=== PATIENT | female | born 1950 | race Caucasian/White ===

== ENCOUNTER 2017-10-27 18:36 | Inpatient (IN) | payer MEDICARE, BC ==
[2017-10-27 19:14] LABS: VENOUS BASE EXCESS -0.8 (-2.0-2.0); VENOUS HCO3 22.8 MEQ/L (23.0-27.0); VENOUS O2 SATURATION 78.9 % (60.0-80.0); VENOUS PARTIAL PRESSURE CO2 34.8 mmHg (38.0-50.0); VENOUS PARTIAL PRESSURE O2 40.9 mmHg (30.0-50.0); VENOUS PH 7.435 UNITS (7.330-7.430); VENOUS STANDARD HCO3 23.4 MEQ/L; VENOUS TOTAL CO2 23.9 MEQ/L (24.0-28.0)
[2017-10-27 19:19] LABS: BASO # 0.1 10^3/uL (0.0-0.2); BASO % 0.6 % (0.0-1.0); EOS # 0.2 10^3/uL (0.0-0.50); HEMATOCRIT 37.8 % (36.0-47.0); HEMOGLOBIN 12.7 g/dl (12.0-15.5); IMMATURE GRANULOCYTE % 0.5 % (0-3.0); LYMPH # 1.4 10^3/uL (1.5-4.5); LYMPH % 8.5 % (24.0-44.0); MEAN CORPUSCULAR HEMOGLOBIN 30.7 pg (27.0-33.0); MEAN CORPUSCULAR HGB CONC 33.6 g/dl (32.0-36.5); MEAN CORPUSCULAR VOLUME 91.3 fl (80.0-96.0); MONO # 1.5 10^3/uL (0.0-0.8); MONO % 9.1 % (0.0-5.0); NEUTROPHILS # 12.9 10^3/uL (1.8-7.7); NEUTROPHILS % 80.3 % (36.0-66.0); PLATELET COUNT, AUTOMATED 233 10^3/uL (150-450); RED BLOOD COUNT 4.14 10^6/uL (4.00-5.40); RED CELL DISTRIBUTION WIDTH 13.2 % (11.5-14.5); WHITE BLOOD COUNT 16.1 10^3/uL (4.0-10.0)
[2017-10-27 19:41] LABS: ALBUMIN 3.1 GM/DL (3.2-5.2); ALBUMIN/GLOBULIN RATIO 1.03 (1.00-1.93); ALKALINE PHOSPHATASE 79 U/L (45-117); ANION GAP 9 MEQ/L (8-16); AST/SGOT 20 U/L (7-37); BILIRUBIN,TOTAL 0.5 MG/DL (0.2-1.0); BLOOD UREA NITROGEN 12 MG/DL (7-18); CALCIUM LEVEL 8.4 MG/DL (8.8-10.2); CARBON DIOXIDE LEVEL 24 MEQ/L (21-32); CHLORIDE LEVEL 104 MEQ/L (98-107); CPK CREATINE PHOSPHOKINASE 56 U/L (26-192); CREATININE FOR GFR 0.83 MG/DL (0.55-1.30); GLOMERULAR FILTRATION RATE > 60.0 (>45); GLUCOSE, FASTING 154 MG/DL (70-100); POTASSIUM SERUM 4.1 MEQ/L (3.5-5.1); SODIUM LEVEL 137 MEQ/L (136-145); TOTAL PROTEIN 6.1 GM/DL (6.4-8.2); TROPONIN I < 0.02 NG/ML (< 0.10)
[2017-10-27] MEDS: NS 1,000 ML IV (19:45)
[2017-10-27 19:54] LABS: ALT/SGPT 29 U/L (12-78); BILIRUBIN,DIRECT 0.2 MG/DL (0.0-0.2); CK-MB VALUE MASS < 1.0 NG/ML (<3.6); MB/CK RELATIVE INDEX 1.78 (< OR =4); NT-PRO BNP 501 PG/ML (<125); THYROID STIMULATING HORMONE 0.761 uIU/ML (0.358-3.740)
[2017-10-27] MEDS: IPRATROPIUM 0.5MG/ALBUTEROL 2.5MG INH SOL UD 3ML (DUONEB)(J7620) NEB (20:09)
[2017-10-27 21:03] LABS: KETONE, URINE AUTO RFX 1+ mg/dL (NEGATIVE); LEUKOCYTE ESTERASE UR AUTO RFX 3+ (NEGATIVE); MUCUS, URINE RFX SMALL (NEGATIVE); NITRITE, URINE AUTO RFX POSITIVE (NEGATIVE); RBC, URINE AUTO RFX 7 /HPF (0-3); SPECIFIC GRAVITY UR AUTO RFX 1.024 (1.002-1.035); SQUAM EPITHELIAL CELL UR AURFX 0 /HPF (0-6); WBC, URINE AUTO RFX TNTC /HPF (0-3)
[2017-10-27] MEDS: CIPROFLOXACIN 400 MG in APPROPRIATE DILUENT 1 EA IV (21:45)
[2017-10-27] MEDS: NS 500 ML IV ×2 (23:30)
[2017-10-27] MEDS ORDERED: GLUCAGON FOR INJ 1 MG VIAL (J1610) SC (23:45)
[2017-10-27] MEDS ORDERED: GLUCOSE 4 GM CHEW TABLET PO (23:45)
[2017-10-27] MEDS ORDERED: DEXTROSE 50% 50 ML SYRINGE IV (23:45)
[2017-10-28 00:03] LABS: ESTIMATED AVERAGE GLUCOSE 192 MG/DL (60-110); HEMOGLOBIN A1c 8.3 %
[2017-10-28] MEDS: HumaLOG INSULIN (NovoLOG) PER UNIT SC ×5 (00:36→20:58)
[2017-10-28 00:37] LABS: BEDSIDE GLUCOSE 224 MG/DL (80-115)
[2017-10-28] MEDS: ACETAMINOPHEN TAB 650MG DOSE (2X325MG) PO ×3 (00:46→20:58)
[2017-10-28] MEDS: PHENAZOPYRIDINE 100 MG TAB PO ×4 (00:46→20:58)
[2017-10-28] MEDS: IPRATROPIUM 0.5MG/ALBUTEROL 2.5MG INH SOL UD 3ML (DUONEB)(J7620) INH (02:01)
[2017-10-28] MEDS: NICOTINE 14 MG/24 HR TRANSDERMAL TD (02:13)
[2017-10-28] MEDS: NS 1,000 ML IV ×2 (02:13→16:56)
[2017-10-28] MEDS: LEVOTHYROXINE 100MCG TABLET (0.1MG) PO (05:39)
[2017-10-28] MEDS: LEVOTHYROXINE 75MCG TABLET (0.075MG) PO (05:39)
[2017-10-28 05:49] LABS: HEMATOCRIT 36.6 % (36.0-47.0); HEMOGLOBIN 12.1 g/dl (12.0-15.5); MEAN CORPUSCULAR HEMOGLOBIN 30.9 pg (27.0-33.0); MEAN CORPUSCULAR HGB CONC 33.1 g/dl (32.0-36.5); MEAN CORPUSCULAR VOLUME 93.6 fl (80.0-96.0); PLATELET COUNT, AUTOMATED 199 10^3/uL (150-450); RED BLOOD COUNT 3.91 10^6/uL (4.00-5.40); RED CELL DISTRIBUTION WIDTH 13.2 % (11.5-14.5); WHITE BLOOD COUNT 13.4 10^3/uL (4.0-10.0)
[2017-10-28 06:12] LABS: ANION GAP 8 MEQ/L (8-16); BLOOD UREA NITROGEN 10 MG/DL (7-18); CALCIUM LEVEL 8.1 MG/DL (8.8-10.2); CARBON DIOXIDE LEVEL 24 MEQ/L (21-32); CHLORIDE LEVEL 108 MEQ/L (98-107); CREATININE FOR GFR 0.72 MG/DL (0.55-1.30); GLOMERULAR FILTRATION RATE > 60.0 (>45); GLUCOSE, FASTING 175 MG/DL (70-100); POTASSIUM SERUM 3.7 MEQ/L (3.5-5.1); SODIUM LEVEL 140 MEQ/L (136-145)
[2017-10-28] MEDS: TIOTROPIUM INHALER/CAPSULE (SPIRIVA) INH (07:48)
[2017-10-28] MEDS: ATORVASTATIN 20 MG TAB PO (08:26)
[2017-10-28] MEDS: ENOXAPARIN 40 MG/0.4 ML SYRINGE (J1650) SC (08:26)
[2017-10-28] MEDS: OMEPRAZOLE 20 MG CAP PO (08:26)
[2017-10-28] MEDS: CitaloPRAM (CeleXA) 20 MG TAB PO (08:26)
[2017-10-28] MEDS: CIPROFLOXACIN 400 MG in APPROPRIATE DILUENT 1 EA IV ×2 (08:26→21:03)
[2017-10-28] MEDS: MONTELUKAST 10 MG TAB PO (08:27)
[2017-10-28] MEDS: LEVEMIR (INSULIN DETEMIR) 1 UNITS/0.01ML SC (08:27)
[2017-10-28 11:24] LABS: BEDSIDE GLUCOSE 167 MG/DL (80-115)
[2017-10-28] MEDS: PERCOCET 5MG/325MG TAB PO (13:12)
[2017-10-28 16:32] LABS: BEDSIDE GLUCOSE 128 MG/DL (80-115)
[2017-10-28 19:45] LABS: BEDSIDE GLUCOSE 174 MG/DL (80-115)
[2017-10-29] MEDS: ONDANSETRON 4MG/2ML VIAL (J2405) IV (06:00)
[2017-10-29] MEDS: LEVOTHYROXINE 100MCG TABLET (0.1MG) PO (06:27)
[2017-10-29] MEDS: ACETAMINOPHEN TAB 650MG DOSE (2X325MG) PO ×2 (06:27→20:51)
[2017-10-29] MEDS: LEVOTHYROXINE 75MCG TABLET (0.075MG) PO (06:27)
[2017-10-29 06:54] LABS: HEMATOCRIT 37.8 % (36.0-47.0); HEMOGLOBIN 12.7 g/dl (12.0-15.5); MEAN CORPUSCULAR HEMOGLOBIN 30.8 pg (27.0-33.0); MEAN CORPUSCULAR HGB CONC 33.6 g/dl (32.0-36.5); MEAN CORPUSCULAR VOLUME 91.7 fl (80.0-96.0); PLATELET COUNT, AUTOMATED 185 10^3/uL (150-450); RED BLOOD COUNT 4.12 10^6/uL (4.00-5.40); RED CELL DISTRIBUTION WIDTH 12.8 % (11.5-14.5); WHITE BLOOD COUNT 9.3 10^3/uL (4.0-10.0)
[2017-10-29 07:11] LABS: ANION GAP 9 MEQ/L (8-16); BLOOD UREA NITROGEN 8 MG/DL (7-18); CALCIUM LEVEL 8.3 MG/DL (8.8-10.2); CARBON DIOXIDE LEVEL 23 MEQ/L (21-32); CHLORIDE LEVEL 107 MEQ/L (98-107); CREATININE FOR GFR 0.69 MG/DL (0.55-1.30); GLOMERULAR FILTRATION RATE > 60.0 (>45); GLUCOSE, FASTING 140 MG/DL (70-100); POTASSIUM SERUM 3.8 MEQ/L (3.5-5.1); SODIUM LEVEL 139 MEQ/L (136-145)
[2017-10-29 08:06] LABS: ALPHA 1 ANTITRYPSIN 128 mg/dL (90-200)
[2017-10-29] MEDS: TIOTROPIUM INHALER/CAPSULE (SPIRIVA) INH (08:17)
[2017-10-29] MEDS: IPRATROPIUM 0.5MG/ALBUTEROL 2.5MG INH SOL UD 3ML (DUONEB)(J7620) INH (08:17)
[2017-10-29] MEDS: ENOXAPARIN 40 MG/0.4 ML SYRINGE (J1650) SC (08:20)
[2017-10-29] MEDS: LEVEMIR (INSULIN DETEMIR) 1 UNITS/0.01ML SC (08:21)
[2017-10-29] MEDS: HumaLOG INSULIN (NovoLOG) PER UNIT SC ×4 (08:22→20:26)
[2017-10-29] MEDS: PHENAZOPYRIDINE 100 MG TAB PO ×2 (08:22→17:47)
[2017-10-29] MEDS: CitaloPRAM (CeleXA) 20 MG TAB PO (08:22)
[2017-10-29] MEDS: MONTELUKAST 10 MG TAB PO (08:23)
[2017-10-29] MEDS: ATORVASTATIN 20 MG TAB PO (08:23)
[2017-10-29] MEDS: OMEPRAZOLE 20 MG CAP PO (08:23)
[2017-10-29] MEDS: CIPROFLOXACIN 400 MG in APPROPRIATE DILUENT 1 EA IV (11:00)
[2017-10-29 11:58] LABS: BEDSIDE GLUCOSE 250 MG/DL (80-115)
[2017-10-29 16:52] LABS: BEDSIDE GLUCOSE 169 MG/DL (80-115)
[2017-10-29] MEDS: ERTAPENEM SODIUM 1 GM in NS MINI-BAG PLUS 50 ML IV (20:14)
[2017-10-29 20:28] LABS: BEDSIDE GLUCOSE 218 MG/DL (80-115)
[2017-10-30] MEDS: LEVOTHYROXINE 75MCG TABLET (0.075MG) PO (06:36)
[2017-10-30] MEDS: LEVOTHYROXINE 100MCG TABLET (0.1MG) PO (06:36)
[2017-10-30 07:50] LABS: HEMATOCRIT 35.8 % (36.0-47.0); HEMOGLOBIN 12.1 g/dl (12.0-15.5); MEAN CORPUSCULAR HEMOGLOBIN 30.6 pg (27.0-33.0); MEAN CORPUSCULAR HGB CONC 33.8 g/dl (32.0-36.5); MEAN CORPUSCULAR VOLUME 90.4 fl (80.0-96.0); PLATELET COUNT, AUTOMATED 192 10^3/uL (150-450); RED BLOOD COUNT 3.96 10^6/uL (4.00-5.40); RED CELL DISTRIBUTION WIDTH 12.5 % (11.5-14.5); WHITE BLOOD COUNT 7.8 10^3/uL (4.0-10.0)
[2017-10-30 08:08] LABS: ANION GAP 8 MEQ/L (8-16); BLOOD UREA NITROGEN 9 MG/DL (7-18); CALCIUM LEVEL 8.4 MG/DL (8.8-10.2); CARBON DIOXIDE LEVEL 25 MEQ/L (21-32); CHLORIDE LEVEL 107 MEQ/L (98-107); CREATININE FOR GFR 0.62 MG/DL (0.55-1.30); GLOMERULAR FILTRATION RATE > 60.0 (>45); GLUCOSE, FASTING 184 MG/DL (70-100); SODIUM LEVEL 140 MEQ/L (136-145)
[2017-10-30] MEDS: TIOTROPIUM INHALER/CAPSULE (SPIRIVA) INH (08:08)
[2017-10-30] MEDS: MONTELUKAST 10 MG TAB PO (08:24)
[2017-10-30] MEDS: ATORVASTATIN 20 MG TAB PO (08:24)
[2017-10-30] MEDS: LEVEMIR (INSULIN DETEMIR) 1 UNITS/0.01ML SC (08:24)
[2017-10-30] MEDS: OMEPRAZOLE 20 MG CAP PO (08:24)
[2017-10-30] MEDS: ENOXAPARIN 40 MG/0.4 ML SYRINGE (J1650) SC (08:25)
[2017-10-30] MEDS: HumaLOG INSULIN (NovoLOG) PER UNIT SC ×4 (08:25→20:38)
[2017-10-30] MEDS: CitaloPRAM (CeleXA) 20 MG TAB PO (10:37)
[2017-10-30] MEDS: NICOTINE 14 MG/24 HR TRANSDERMAL TD (11:36)
[2017-10-30 11:45] LABS: BEDSIDE GLUCOSE 324 MG/DL (80-115)
[2017-10-30 16:53] LABS: BEDSIDE GLUCOSE 245 MG/DL (80-115)
[2017-10-30 20:07] LABS: BEDSIDE GLUCOSE 312 MG/DL (80-115)
[2017-10-30] MEDS: ERTAPENEM SODIUM 1 GM in NS MINI-BAG PLUS 50 ML IV (20:39)
[2017-10-31] MEDS: LEVOTHYROXINE 75MCG TABLET (0.075MG) PO (06:43)
[2017-10-31] MEDS: LEVOTHYROXINE 100MCG TABLET (0.1MG) PO (06:43)
[2017-10-31 06:57] LABS: HEMATOCRIT 36.6 % (36.0-47.0); HEMOGLOBIN 12.7 g/dl (12.0-15.5); MEAN CORPUSCULAR HEMOGLOBIN 30.8 pg (27.0-33.0); MEAN CORPUSCULAR HGB CONC 34.7 g/dl (32.0-36.5); MEAN CORPUSCULAR VOLUME 88.8 fl (80.0-96.0); PLATELET COUNT, AUTOMATED 227 10^3/uL (150-450); RED BLOOD COUNT 4.12 10^6/uL (4.00-5.40); RED CELL DISTRIBUTION WIDTH 12.4 % (11.5-14.5); WHITE BLOOD COUNT 7.4 10^3/uL (4.0-10.0)
[2017-10-31 07:18] LABS: ANION GAP 10 MEQ/L (8-16); BLOOD UREA NITROGEN 13 MG/DL (7-18); CALCIUM LEVEL 8.6 MG/DL (8.8-10.2); CARBON DIOXIDE LEVEL 26 MEQ/L (21-32); CHLORIDE LEVEL 106 MEQ/L (98-107); CREATININE FOR GFR 0.58 MG/DL (0.55-1.30); GLOMERULAR FILTRATION RATE > 60.0 (>45); GLUCOSE, FASTING 191 MG/DL (70-100); POTASSIUM SERUM 4.2 MEQ/L (3.5-5.1); SODIUM LEVEL 142 MEQ/L (136-145)
[2017-10-31] MEDS: ENOXAPARIN 40 MG/0.4 ML SYRINGE (J1650) SC (08:12)
[2017-10-31] MEDS: HumaLOG INSULIN (NovoLOG) PER UNIT SC (08:13)
[2017-10-31] MEDS: NICOTINE 14 MG/24 HR TRANSDERMAL TD (08:13)
[2017-10-31] MEDS: ATORVASTATIN 20 MG TAB PO (08:13)
[2017-10-31] MEDS: LEVEMIR (INSULIN DETEMIR) 1 UNITS/0.01ML SC (08:13)
[2017-10-31] MEDS: OMEPRAZOLE 20 MG CAP PO (08:14)
[2017-10-31] MEDS: CitaloPRAM (CeleXA) 20 MG TAB PO (08:14)
[2017-10-31] MEDS: MONTELUKAST 10 MG TAB PO (08:14)
[2017-10-31] MEDS: TIOTROPIUM INHALER/CAPSULE (SPIRIVA) INH (08:45)
== END 2017-10-31 12:10 | disposition home or self-care (01) | DRG 872 ==
LOC: M ED INP 10-28 00:30 → M MS5PR 10-28 01:30 → M PED 10-29 21:10 → M ED 18:36
PROVIDERS: Hospitalist
DX: A41.9 Sepsis, unspecified organism (principal); N10 Acute pyelonephritis; E11.9 Type 2 diabetes mellitus without complications; J44.9 Chronic obstructive pulmonary disease, unspecified; R65.20 Severe sepsis without septic shock; G47.33 Obstructive sleep apnea (adult) (pediatric); I10 Essential (primary) hypertension; E03.9 Hypothyroidism, unspecified; F32.9 Major depressive disorder, single episode, unspecified; B96.20 Unspecified Escherichia coli [E. coli] as the cause of diseases classified elsewhere; K21.9 Gastro-esophageal reflux disease without esophagitis; E88.01 Alpha-1-antitrypsin deficiency; F17.210 Nicotine dependence, cigarettes, uncomplicated; E78.5 Hyperlipidemia, unspecified; I25.10 Atherosclerotic heart disease of native coronary artery without angina pectoris; G43.909 Migraine, unspecified, not intractable, without status migrainosus; Z79.4 Long term (current) use of insulin; Z79.899 Other long term (current) drug therapy

== ENCOUNTER → 2017-10-27 | Outpatient (REF) | payer MEDICARE | LOC: M SFHCLERA 18:48 | DX: R50.9 Fever, unspecified (principal) ==

== ENCOUNTER → 2018-01-25 | Outpatient (CLI) | payer MEDICARE | LOC: M RAD 10:21 | DX: J18.9 Pneumonia, unspecified organism (principal) | CPT/HCPCS: 71046 ==

== ENCOUNTER 2018-05-17 10:04 | Inpatient (IN) | payer MEDICARE ==
[~2018-05-17] VITALS: Ht 177.8 cm; Wt 98.6 kg
[2018-05-17] MEDS: LEVOTHYROXINE 100MCG TABLET (0.1MG) PO SCH (06:00)
[2018-05-17] MEDS: LEVOTHYROXINE 75MCG TABLET (0.075MG) PO SCH (06:00)
[2018-05-17] MEDS: TIOTROPIUM INHALER/CAPSULE (SPIRIVA) INH SCH (08:00)
[2018-05-17] MEDS: LISINOPRIL 20 MG TAB PO SCH (09:00)
[2018-05-17] MEDS: OMEPRAZOLE 20 MG CAP PO SCH (09:00)
[2018-05-17] MEDS: ATORVASTATIN 20 MG TAB PO SCH (09:00)
[2018-05-17] MEDS: LORATADINE 10 MG TAB PO SCH (09:00)
[2018-05-17] MEDS: ADVAIR HFA 115/21MCG INHALER INH SCH ×2 (09:00→21:00)
[~2018-05-17 10:04] MED LIST: /ADVA50050; /AUGM875TA; /TIOT18INH; ADV250INH INH; ATOR40TA75 PO; BABY81CH; BACITAB PO; CELE40TA; CELE40TA PO; CETI10TA PO; CIPR1TAB20 PO; COMBAER6 INH; COMBIVENT; HUMALOG; HUMUINJ; INSUHUMDS SC; LEVO2TA; LISI10TA4 PO; METO1TAB7 PO; MONT10TA2 PO; OMEP20CA3 PO; PATIENT COMMENT; PRIL20CA; PRIN10TA; RIZATRIPTAN; SING10TA31; SPIR1CAP INH; SYNT175T2 PO; TOPR50TA; TOUJ1.2I SC; VENTAER INH; VICO5TAB; VYTO10TA5; ZYRTEC D
[2018-05-17] MEDS ORDERED: ONDANSETRON 4MG/2ML VIAL (J2405) IV ONE (10:30)
[2018-05-17] MEDS: MORPHINE 2 MG/ML 1ML SYRINGE (J2270) IV PRN ×4 (10:37→13:10)
[2018-05-17 10:38] LABS: BASO # 0.1 10^3/uL (0.0-0.2); BASO % 1.2 % (0.0-1.0); EOS # 0.4 10^3/uL (0.0-0.50); HEMATOCRIT 40.3 % (36.0-47.0); HEMOGLOBIN 13.6 g/dl (12.0-15.5); LYMPH # 2.2 10^3/uL (1.5-4.5); LYMPH % 24.7 % (24.0-44.0); MEAN CORPUSCULAR HEMOGLOBIN 31.1 pg (27.0-33.0); MEAN CORPUSCULAR HGB CONC 33.7 g/dl (32.0-36.5); MEAN CORPUSCULAR VOLUME 92.2 fl (80.0-96.0); MONO # 0.6 10^3/uL (0.0-0.8); MONO % 6.9 % (0.0-5.0); NEUTROPHILS # 5.4 10^3/uL (1.8-7.7); NEUTROPHILS % 61.9 % (36.0-66.0); PLATELET COUNT, AUTOMATED 237 10^3/uL (150-450); RED BLOOD COUNT 4.37 10^6/uL (4.00-5.40); WHITE BLOOD COUNT 8.8 10^3/uL (4.0-10.0)
[2018-05-17] MEDS ORDERED: OMEP40CA2 PO (10:50)
[2018-05-17] MEDS ORDERED: JARD1TAB PO (10:50)
[2018-05-17 10:51] LABS: INR 0.97; PARTIAL THROMBOPLASTIN TIME 28.8 SECONDS (25.4-37.6)
[2018-05-17] MEDS ORDERED: NS 1,000 ML IV ONE ×2 (11:30)
--- NOTE | 2018-05-17 11:42 | REP ---
CHEST, SINGLE VIEW: There is no evidence of acute infiltrate. No pleural effusion is seen. The heart is normal in size. The mediastinal silhouette is unremarkable. The visualized osseous structures are intact. IMPRESSION: No acute pulmonary disease. Electronically Signed by uJlio Howard MD 05/17/2018 05:39 P
--- NOTE | 2018-05-17 11:43 | REP ---
LEFT FEMUR: AP and lateral views of the left femur are performed. There is an intertrochanteric fracture of the proximal femur. No other acute fracture or dislocation is seen. IMPRESSION: Intertrochanteric fracture proximal left femur. Electronically Signed by Julio Howard MD 05/17/2018 05:39 P
--- NOTE | 2018-05-17 11:43 | REP ---
PELVIS AND LEFT HIP: AP view of the pelvis and AP and frogleg views of the left hip are performed. There is an intertrochanteric fracture of the proximal left femur. No other acute fracture or dislocation seen. IMPRESSION: Intertrochanteric fracture proximal left femur. Electronically Signed by Julio Howard MD 05/17/2018 05:40 P
--- NOTE | 2018-05-17 11:45 | REP ---
LUMBOSACRAL SPINE: Four views of the lumbosacral spine are performed. There is no compression fracture or malalignment. Disc spaces are relatively well preserved. There is sclerosis of the facets at L4-5 and L5-S1. Posterior elements appear intact. IMPRESSION: No fracture or dislocation. Electronically Signed by Julio Howard MD 05/17/2018 05:40 P
[2018-05-17] MEDS ORDERED: METO25TA4 PO (11:46)
[2018-05-17] MEDS ORDERED: CLAR10CA3 PO (11:46)
[2018-05-17] MEDS ORDERED: LISI-538 PO (11:46)
[2018-05-17] MEDS ORDERED: PRED10TA2 PO (11:48)
[2018-05-17] MEDS ORDERED: AZIT-12 PO (11:48)
[2018-05-17] MEDS ORDERED: NS 1,000 ML IV SCH (13:06)
[2018-05-17] MEDS ORDERED: IPRATROPIUM 0.5MG/ALBUTEROL 2.5MG INH SOL UD 3ML (DUONEB)(J7620) INH PRN (13:15)
[2018-05-17] MEDS ORDERED: ALBUTEROL 90 MCG/ACT 8GM HFA INHALER INH PRN (13:15)
--- NOTE | 2018-05-17 13:53 | HPE ---
DATE OF ADMISSION: 05/17/2018 68-year-old female with a past medical history of type 2 diabetes, non oxygen dependent chronic obstructive pulmonary disease (COPD), obstructive sleep apnea on CPAP, hypertension, hyperlipidemia, who presents to the emergency room after falling on ice today and landing on her left hip. She was brought to the emergency room and was given IV morphine for pain and an x-ray revealed that the patient had a left intertrochanteric fracture. The patient has been seen by Dr. Green, orthopedic surgeon, and likely will have surgery later on today. The patient denies any chest pain or shortness of breath or palpitations. She denied any chest pain, shortness of breath, or palpitations prior to the fall as well. She did not have a syncopal event. She will be admitted for further management. PAST MEDICAL HISTORY: Again, past medical history of: 1. Type 2 diabetes. 2. Non oxygen dependent COPD. 3. Obstructive sleep apnea, on CPAP. 4. Gastroesophageal reflux disease (GERD). 5. Hypothyroidism. 6. Hypertension. 7. Hyperlipidemia. 8. Coronary artery disease. 9. Depression. 10. History of peripheral vascular disease. 11. Migraines. PAST SURGICAL HISTORY: 1. Hysterectomy. 2. Appendectomy. 3. Bladder suspension. ALLERGIES: She has drug allergies to SULFA and SULFA CROSS REACTORS. FAMILY HISTORY: Noncontributory. SOCIAL HISTORY: The patient smokes about a half of a pack per day for the last 30 years. Denies alcohol or illicit drugs. MEDICATIONS: She takes at home: - albuterol as needed - atorvastatin 40 mg by mouth daily - empagliflozin 10 mg by mouth daily - Lispro insulin one dose subcutaneously before meals - Synthroid 175 mcg by mouth daily - Lisinopril 20 mg by mouth daily - loratadine 10 mg by mouth daily - metoprolol 25 mg by mouth twice a day - omeprazole 40 mg by mouth daily - salmeterol / fluticasone 250/50 one puff inhaled twice a day - tiotropium one inhalation daily - Toujeo SoloStar 60 units subcutaneously at night REVIEW OF SYSTEMS: Negative for all ten major systems except what is mentioned in the history of present illness. PHYSICAL EXAMINATION: VITAL SIGNS: Blood pressure 130/64, heart rate is 80 and regular, respiratory rate is 18, temperature 98.8, oxygen saturation is 97% on room air. Head is atraumatic, normocephalic. Neck is supple with no jugular venous distention (JVD). Lungs clear to auscultation. S1, S2 audible. No murmurs appreciated. Abdomen is soft. Positive bowel sounds. No pedal edema. Skin is intact. Neurologic examination, the patient is awake, alert and oriented times three. LABORATORIES: WBC 8.8, hemoglobin 13.6, hematocrit 40.3, platelets 237,000. BMP is pending. INR is 0.97. 12-leak EKG shows normal sinus rhythm. No acute ST-T wave abnormalities. IMPRESSION: 1. Left intertrochanteric fracture. 2. Fall. PLAN: The patient will be admitted to the medical/surgical floor and kept nothing by mouth. We will start normal saline at 125 mL an hour. I will give her morphine IV every 2 hours as needed for pain. I will continue her preadmission medications. If the BMP is within normal limits, I will medically optimize her at moderate risk for moderate risk procedure.
[2018-05-17] MEDS ORDERED: ceFAZolin 1GM INJ (J0690 PER 500MG) As Ordered ONE (14:15)
[2018-05-17 14:29] LABS: ALBUMIN 3.3 GM/DL (3.2-5.2); ALT/SGPT 27 U/L (12-78); BILIRUBIN,DIRECT < 0.1 MG/DL (0.0-0.2); BILIRUBIN,TOTAL 0.2 MG/DL (0.2-1.0); CPK CREATINE PHOSPHOKINASE 94 U/L (26-192); MB/CK RELATIVE INDEX 1.81 (< OR =4); TROPONIN I < 0.02 NG/ML (< 0.10)
[2018-05-17] MEDS ORDERED: ceFAZolin 2 GM/D5W 50 ML IV BAG (J0690 PER 500MG) As Ordered ONE (14:30)
[2018-05-17] MEDS ORDERED: PROPOFOL 200 MG/20 ML VIAL As Ordered ONE (15:37)
[2018-05-17] MEDS ORDERED: KETAMINE HCL 200 MG/20 ML VIAL As Ordered ONE (15:37)
[2018-05-17] MEDS ORDERED: PHENYLephrine HCL 500 MCG/5 ML (100MCG/ML) SYRINGE (J2370) As Ordered ONE (15:37)
[2018-05-17] MEDS ORDERED: MIDAZOLAM INJ 2 MG/2 ML VIAL (J2250) As Ordered ONE (15:37)
[2018-05-17] MEDS ORDERED: LR 1,000 ML IV SCH (16:30)
[2018-05-17] MEDS ORDERED: MORPHINE 10 MG/ML 1ML VIAL (J2270) IV PRN (16:30)
[2018-05-17] MEDS ORDERED: fentaNYL 100 MCG/2 ML INJECTION (J3010) IV PRN (16:30)
[2018-05-17] MEDS ORDERED: ONDANSETRON 4MG/2ML VIAL (J2405) IV PRN (16:30)
[2018-05-17] MEDS ORDERED: PERCOCET 5MG/325MG TAB PO PRN (16:30)
--- NOTE | 2018-05-17 16:50 | REP ---
Left hip: 10 views: History: Left hip fracture intraoperative filming. 56 seconds of fluoroscopy time is reported. Findings: A sequence of 10 last image hold fluoroscopically obtained spot radiographs of the left hip document open reduction internal fixation procedure for left hip. Electronically Signed by Andrea Parham MD 05/17/2018 04:53 P
[2018-05-17 18:06] LABS: BLOOD UREA NITROGEN 15 MG/DL (7-18); CARBON DIOXIDE LEVEL 25 MEQ/L (21-32); CHLORIDE LEVEL 111 MEQ/L (98-107); CREATININE FOR GFR 0.68 MG/DL (0.55-1.30); GLOMERULAR FILTRATION RATE > 60.0 (>45); GLUCOSE, FASTING 207 MG/DL (70-100); POTASSIUM SERUM 4.5 MEQ/L (3.5-5.1); SODIUM LEVEL 143 MEQ/L (136-145)
[2018-05-17 18:45] VITALS: BP 119/62
--- NOTE | 2018-05-17 19:08 | CR ---
DATE OF CONSULTATION: 05/17/2018 REASON FOR CONSULTATION: Left intertrochanteric fracture. HISTORY OF THE PRESENT ILLNESS: She is a 68-year-old female, slipped on the ice taking the trash out this morning at her home in [place]. She lives alone, she is . Fell, had pain in the left hip area and her low back. She was transferred to [facility], found to have a left intertrochanteric hip fracture, and I was called to see her for this. She otherwise has no other complaints of pain and soreness. No loss of consciousness. Did not strike her head or neck. Does not complain of any tingling or numbness in her extremities otherwise. PAST MEDICAL HISTORY: Significant for: Insulin-dependent diabetes. Coronary artery disease. Hypertension. Hypothyroidism. Depression. Hyperlipidemia. Gastric reflux disease. Sleep apnea. Chronic obstructive pulmonary disease (COPD). History of kidney pyelonephritis. Migraine headaches. MEDICATIONS AT HOME: Include: - insulin - Synthroid - lisinopril - Celexa - cetirizine - atorvastatin - Combivent - Ventolin - metoprolol - montelukast - omeprazole - Advair Diskus - Spiriva - Toujeo PREVIOUS SURGICAL HISTORY: Hysterectomy. Appendectomy. Cardiac catheterizations twice. Bladder suspension surgery. Right foot surgery. Dental abscess drainage procedure. Esophagogastroduodenoscopies. SOCIAL HISTORY: She does smoke. She is a retired bakery sales clerk. She used to in [place], [place]. She is . . She lives alone but has supportive neighbors, one of whom is a nurse. FAMILY HISTORY: Otherwise, coronary artery disease on her mother's side with diabetes in a sister, daughter of congestive heart failure. ALLERGIES: SULFA. REVIEW OF SYSTEMS: Health survey amended to the chart. Please see the note from Dr. Pablo's admission note from October the past year. I also discussed her situation with her hospitalist here today. She normally gets her care with Dr. Dyer with [facility]. PHYSICAL EXAMINATION: On examination, alert and oriented, pleasant, healthy-appearing female. She is at the bedside with her friends, one of whom is a nurse. Also, the hospitalist was with us. She is alert, she is oriented, complains of only isolated soreness in the left hip area. Her blood pressure is 150/84, respirations 23, pulse 81, temperature is 98.8, oxygen saturations are 97%. Upper extremity: She could elevate her arms up over her head without pain or soreness, tenderness, deformity, pain or swelling, or tenderness of her shoulders, humeri, elbows, wrists. Neck is nontender. Head is normocephalic, atraumatic. Chest wall is nontender. Abdomen was soft. The left lower extremity showed some tenderness over the greater trochanter area in the left hip area. She tends to hold her leg somewhat externally rotated but good strong dorsalis pedis and posterior tibial pulses. Could move her toes well. Normal sensation to light touch. The right lower extremity was benign in terms of any pain or soreness. There is some soreness in the base of her lumbar spine. IMAGING STUDIES: Her chest x-ray showed no acute disease. Left hip and femur showed a high intertrochanteric fracture of the left hip. Lumbar spine x-ray did not show any acute fractures. LABORATORY STUDIES: She had a white count of 8.8, hematocrit of 40.3, platelets of 237. Electrolytes are presently pending. Pro-time was 13, INR 0.97. IMPRESSION: Left intertrochanteric hip fracture in a 68-year-old female with the above medical history. I talked to her about the options for treatment, and I think that she would be best cared for with operative fixation and stabilization of her hip in hopes of getting it to heal properly so we can mobilize her early and hopefully get a good anatomic reduction and healing for long-term function. But that carries the risk of having surgical intervention, which I did discuss with her and her friends, and her friend who is a nurse as well. There is always a risk, of course, of infection or anesthetic complications, phlebitis and embolism, heart attack, dying from surgery or failure of the bone to heal properly, damage to nerves and blood vessels amongst others. She understands there is a risk, but she would like to proceed. She understands, so she signed the consent today. The hospitalist feels that she is medically optimized, just waiting for nothing by mouth (n.p.o.) status and the availability of the operating room. Hopefully we can proceed when the operating room is available for us and her final labs have been reviewed.
[2018-05-17 19:15] VITALS: BP 138/72
--- NOTE | 2018-05-17 19:49 | ECGEPIP ---
Stationary ECG Study [facility] - ED Test Date: 2018-05-17 Pat Name: KYLEE LESLIE Department: Room: - Gender: F Cafeteria Assistant: kevan : 1950 Requested By: Fletcher Hollingsworth Order Number: [id number] Reading MD: Fletcher Hollingsworth Measurements Intervals [place] Rate: 75 P: 69 WA: 168 QRS: 50 QRSD: 82 T: 61 QT: 405 QTc: 454 Interpretive Statements SINUS RHYTHM NONSPECIFIC ST T WAVE CHANGES 10/27/[address] T WAVE CHANGES Electronically Signed On 05-17-2018 19:48:49 EST by Fletcher Hollingsworth
--- NOTE | 2018-05-17 19:51 | ECGEPIP ---
Stationary ECG Study [facility] - ED Test Date: 2018-05-17 Pat Name: KYLEE LESLIE Department: Room: - Gender: F Administration Clerk: kevan : 1950 Requested By: Fletcher Hollingsworth Order Number: [id number] Reading MD: Fletcher Hollingsworth Measurements Intervals [place] Rate: 73 P: 67 OR: 172 QRS: 50 QRSD: 81 T: 66 QT: 388 QTc: 428 Interpretive Statements SINUS RHYTHM NONSPECIFIC T-WAVE ABNORMALITY CW O NONSPECIFIC ST T WAVE CHANGES Electronically Signed On 05-17-2018 19:50:59 EST by Fletcher Hollingsworth
[2018-05-17 20:15] VITALS: BP 107/56
[2018-05-17] MEDS: METOPROLOL TART 25 MG TABLET PO SCH ×2 (20:58→21:00)
[2018-05-17 21:15] VITALS: BP 115/56
[2018-05-17] MEDS: MORPHINE 4 MG/ML 1ML VIAL/SYRINGE (J2270) IV PRN (21:33)
[2018-05-17 22:00] VITALS: BP 102/50
[2018-05-18] MEDS: MORPHINE 4 MG/ML 1ML VIAL/SYRINGE (J2270) IV PRN ×2 (00:44→06:16)
[2018-05-18 02:00] VITALS: BP 120/62
[2018-05-18] MEDS: LEVOTHYROXINE 100MCG TABLET (0.1MG) PO SCH (05:48)
[2018-05-18] MEDS: LEVOTHYROXINE 75MCG TABLET (0.075MG) PO SCH (05:48)
[2018-05-18 06:00] VITALS: BP 116/75
[2018-05-18] MEDS ORDERED: PERCOCET 5MG/325MG TAB PO PRN (06:45)
[2018-05-18] MEDS ORDERED: MORPHINE 15 MG SA TAB PO ONE (06:45)
[2018-05-18] MEDS ORDERED: ONDANSETRON 4 MG TAB (S0181) PO PRN (06:45)
[2018-05-18 07:01] LABS: BASO # 0.1 10^3/uL (0.0-0.2); EOS # 0.2 10^3/uL (0.0-0.50); EOS % 2.4 % (0.0-3.0); LYMPH # 1.8 10^3/uL (1.5-4.5); LYMPH % 18.4 % (24.0-44.0); MEAN CORPUSCULAR HEMOGLOBIN 31.3 pg (27.0-33.0); MEAN CORPUSCULAR HGB CONC 33.1 g/dl (32.0-36.5); MEAN CORPUSCULAR VOLUME 94.3 fl (80.0-96.0); MONO # 1.1 10^3/uL (0.0-0.8); MONO % 11.4 % (0.0-5.0); NEUTROPHILS # 6.5 10^3/uL (1.8-7.7); NEUTROPHILS % 66.4 % (36.0-66.0); PLATELET COUNT, AUTOMATED 206 10^3/uL (150-450); RED BLOOD COUNT 3.71 10^6/uL (4.00-5.40); WHITE BLOOD COUNT 9.8 10^3/uL (4.0-10.0)
[2018-05-18 07:07] LABS: HEMOGLOBIN 11.6 g/dl (12.0-15.5)
[2018-05-18] MEDS: TIOTROPIUM INHALER/CAPSULE (SPIRIVA) INH SCH (07:52)
[2018-05-18] MEDS: ADVAIR HFA 115/21MCG INHALER INH SCH ×2 (07:52→21:00)
[2018-05-18] MEDS: PERCOCET 5MG/325MG TAB PO PRN ×3 (08:43→18:35)
[2018-05-18 09:00] VITALS: BP 120/78
[2018-05-18] MEDS ORDERED: LEVEMIR (INSULIN DETEMIR) 1 UNITS/0.01ML SC SCH ×2 (09:00→21:00)
[2018-05-18 09:22] LABS: BLOOD UREA NITROGEN 13 MG/DL (7-18); CALCIUM LEVEL 7.9 MG/DL (8.8-10.2); CARBON DIOXIDE LEVEL 24 MEQ/L (21-32); CHLORIDE LEVEL 109 MEQ/L (98-107); GLOMERULAR FILTRATION RATE > 60.0 (>45); GLUCOSE, FASTING 146 MG/DL (70-100); POTASSIUM SERUM 4.1 MEQ/L (3.5-5.1); SODIUM LEVEL 140 MEQ/L (136-145)
[2018-05-18 10:00] VITALS: BP 118/76
[2018-05-18] MEDS: ATORVASTATIN 20 MG TAB PO SCH (10:43)
[2018-05-18] MEDS: OMEPRAZOLE 20 MG CAP PO SCH (10:43)
[2018-05-18] MEDS: LISINOPRIL 20 MG TAB PO SCH (10:43)
[2018-05-18] MEDS: MOM 30ML SUSPENSION UDC PO SCH ×2 (10:44→11:04)
[2018-05-18] MEDS: SENOKOT S TAB PO SCH ×2 (10:44→11:04)
[2018-05-18] MEDS: RIVAROXABAN 10 MG TAB (XARELTO) PO SCH (10:44)
[2018-05-18] MEDS: LORATADINE 10 MG TAB PO SCH (10:44)
[2018-05-18] MEDS: METOPROLOL TART 25 MG TABLET PO SCH ×2 (10:44→21:16)
[2018-05-18] MEDS: MIRALAX *UNIT DOSE* 17GM PACKET PO SCH (10:44)
[2018-05-18] MEDS: LEVEMIR (INSULIN DETEMIR) 1 UNITS/0.01ML SC SCH (10:46)
--- NOTE | 2018-05-18 13:52 | RO ---
DATE OF PROCEDURE: 05/17/2018 PREOPERATIVE DIAGNOSIS: Left intertrochanteric hip fracture. POSTOPERATIVE DIAGNOSIS: Left intertrochanteric hip fracture. PROCEDURE: Intramedullary (IM) nailing with trochanteric femoral nail left intertrochanteric femur fracture. SURGEON: Dr. Jose Green HULL OUTFIT SUPERVISOR: None. ANESTHESIA: Spinal. COMPLICATIONS: None. ESTIMATED BLOOD LOSS: 30 mL. SPECIMENS: None. DESCRIPTION OF PROCEDURE: Antibiotics were given intravenously, preoperatively and a successful spinal anesthetic was induced. Then, she was placed on the fracture table in a right position appropriate closed reduction was performed under fluoroscopic guidance. Once that was done and appropriate time-out had been done her left hip area was carefully prepped and draped in the usual sterile fashion, and then under fluoroscopic guidance about a 2 inch incision was made proximal to the greater trochanter laterally over the left hip. Bovie cautery was used to coagulate crossing vessels down to the deep tissues. The tensor fascia was divided and the trochanteric prominence palpated, and then the Sharp all placed in the appropriate position on the tip of the greater trochanter under fluoroscopic guidance and then advanced, followed by the ball-tip guide quang down the center of the femoral canal. Position was checked in both the AP and the lateral planes. It was in good position. The proximal reamer was then placed under fluoroscopic guidance, and then we inserted the short nail. It was positioned fluoroscopically estimated to be in the right depth, and then a small incision was made distally over the lateral femur and the drill guide placed up against the lateral femoral cortex. Then, the guidepin placed in the center of femoral head under AP and the lateral planes, and then it was positioned appropriately to just below the subchondral surface of the center of the femoral head. It measured 110, so I reamed to 100 mm. A twisty blade helical blade was obtained and then inserted under fluoroscopic imaging checking the AP and lateral planes. The static interlock was then placed under fluoroscopic guidance by making a small skin incision and advancing the drill sleeve to the lateral femoral cortex and drilling, then a 36 mm screw was placed without difficulty. I did secure the helical blade by tightening the network desktop support specialist and then backing off 1/4 turn. Then, all the insertion instruments were removed and final imaging in the AP and lateral planes of the fracture site and the hardware was performed. Everything looked to be in good position. Then, I copiously irrigated out the wound. Closed the tensor fascia with interrupted #1 PDS suture. Closed the deep subdermal tissues with interrupted #2-0 PDS sutures. Skin was closed with stapled covered by Adaptic, dry sterile bulky dressing. Then, she was transferred off to the recovery room and then transferred to the recovery room in stable condition. There were no intraoperative complications.
[2018-05-18 14:00] VITALS: BP 93/56
--- NOTE | 2018-05-18 14:31 | IPNPDOC ---
Text Note Date of Service The patient was seen on 05/18/18. NOTE Subjective: Patient's states she still has left hip pain. She notes that her f all was mechanical in nature on ice. Denies any syncopal episode. No chest pain or palpitations. Objective: Vitals: (see below) General: No acute distress, laying comfortably in bed. HEENT: Moist mucous membranes. Neck: No JVD or lymphadenopathy Cardiac: RRR, No murmurs Pulm: Clear to auscultation b/l. No wheezing, rhonchi Abd: NT/ND + BS Ext: No cyanosis. Minimal swelling at the left hip region with bandage clean and dry. No active bleeding noted. Distal pulses intact. Capillary refill less than 2 seconds. Labs (see below) Assessment/Plan 1. Left intertrochanteric fracture s/p repair 05/17/18. Management per orthopedics. 2. IDDM - will decrease Levemir until patient's by mouth intake is improved. Sliding scale insulin. Consistent carb diet. 3. Hypothyroidism on Synthroid 4. Hypertension controlled continue home meds; decrease lisinopril to 10 mg 5. History of COPD stable 6. History of CAD continue meds. Stable. 7. History of anxiety continue meds. 8. History of GERD on PPI 9. History of hyperlipidemia on statin DVT prophy: On Xarelto per ortho Dispo: Pending PT/clinical improvement. VS,Fishbone, I+O VS, Fishbone, I+O Laboratory Tests 05/18/18 06:34 Red Blood Count 3.71 L, Mean Corpuscular Volume 94.3, Mean Corpuscular Hemoglob in 31.3, Mean Corpuscular Hemoglobin Concent 33.1, Red Cell Distribution Width 13.2, Neutrophils (%) (Auto) 66.4 H, Lymphocytes (%) (Auto) 18.4 L, Monocytes (%) (Auto) 11.4 H, Eosinophils (%) (Auto) 2.4, Basophils (%) (Auto) 1.0, Neutrophils # (Auto) 6.5, Lymphocytes # (Auto) 1.8, Monocytes # (Auto) 1.1 H, Eosinophils # (Auto) 0.2, Basophils # (Auto) 0.1, Calcium Level 7.9 L Vital Signs Date Time Temp Pulse Resp B/P (MAP) Pulse Ox O2 Delivery O2 Flow Rate FiO2 05/18/18 14:00 98.9 72 18 93/56 (68) 96 2.0 05/17/18 13:35 Room Air I&O- Last 24 Hours up to 6 AM 05/18/18 06:00 Intake Total 1884 ml Output Total 1680 ml Balance 204 ml TESS WINCHESTER MD May 18, 2018 14:31
[2018-05-18 22:00] VITALS: BP 109/59
[2018-05-19] MEDS: LEVOTHYROXINE 75MCG TABLET (0.075MG) PO SCH (05:49)
[2018-05-19] MEDS: LEVOTHYROXINE 100MCG TABLET (0.1MG) PO SCH (05:49)
[2018-05-19] MEDS: PERCOCET 5MG/325MG TAB PO PRN ×3 (05:49→22:07)
[2018-05-19 06:00] VITALS: BP 125/58
[2018-05-19] MEDS: TIOTROPIUM INHALER/CAPSULE (SPIRIVA) INH SCH (08:40)
[2018-05-19] MEDS: ADVAIR HFA 115/21MCG INHALER INH SCH ×2 (08:43→21:00)
[2018-05-19 09:00] VITALS: BP 124/68
[2018-05-19 09:30] LABS: HEMATOCRIT 33.7 % (36.0-47.0); HEMOGLOBIN 10.9 g/dl (12.0-15.5); MEAN CORPUSCULAR HEMOGLOBIN 30.4 pg (27.0-33.0); MEAN CORPUSCULAR HGB CONC 32.3 g/dl (32.0-36.5); MEAN CORPUSCULAR VOLUME 94.1 fl (80.0-96.0); PLATELET COUNT, AUTOMATED 219 10^3/uL (150-450); RED BLOOD COUNT 3.58 10^6/uL (4.00-5.40); WHITE BLOOD COUNT 15.8 10^3/uL (4.0-10.0)
[2018-05-19 09:52] LABS: BLOOD UREA NITROGEN 15 MG/DL (7-18); CALCIUM LEVEL 8.3 MG/DL (8.8-10.2); CARBON DIOXIDE LEVEL 23 MEQ/L (21-32); CHLORIDE LEVEL 102 MEQ/L (98-107); CREATININE FOR GFR 0.85 MG/DL (0.55-1.30); GLOMERULAR FILTRATION RATE > 60.0 (>45); GLUCOSE, FASTING 323 MG/DL (70-100); POTASSIUM SERUM 4.4 MEQ/L (3.5-5.1); SODIUM LEVEL 134 MEQ/L (136-145)
[2018-05-19] MEDS: ATORVASTATIN 20 MG TAB PO SCH (10:04)
[2018-05-19] MEDS: LISINOPRIL 10 MG TAB PO SCH (10:05)
[2018-05-19] MEDS: OMEPRAZOLE 20 MG CAP PO SCH (10:05)
[2018-05-19] MEDS: SENOKOT S TAB PO SCH ×2 (10:05→20:38)
[2018-05-19] MEDS: RIVAROXABAN 10 MG TAB (XARELTO) PO SCH (10:05)
[2018-05-19] MEDS: LORATADINE 10 MG TAB PO SCH (10:06)
[2018-05-19] MEDS: METOPROLOL TART 25 MG TABLET PO SCH ×2 (10:06→20:38)
[2018-05-19] MEDS: LEVEMIR (INSULIN DETEMIR) 1 UNITS/0.01ML SC SCH (10:06)
[2018-05-19] MEDS: MIRALAX *UNIT DOSE* 17GM PACKET PO SCH (10:06)
[2018-05-19 12:00] VITALS: BP 104/58
[2018-05-19 14:00] VITALS: BP_SYST 106; BP_SYST 110; BP_SYST 113; BP_SYST 129; BP_DIAS 59; BP_DIAS 61; BP_DIAS 65; BP_DIAS 82
--- NOTE | 2018-05-19 14:58 | IPNPDOC ---
Text Note Date of Service The patient was seen on 05/19/18. NOTE Subjective: Patient states the pain is improving. She is more mobile today. De nies dysuria/cough/diarrhea. No Chest pain/shortness of breath/palpitations. Objective: Vitals: (see below) General: No acute distress, laying comfortably in bed. HEENT: Moist mucous membranes. Neck: No JVD or lymphadenopathy Cardiac: RRR, No murmurs Pulm: Clear to auscultation b/l. No wheezing, rhonchi Abd: NT/ND + BS Ext: No cyanosis. Minimal swelling at the left hip region with bandage clean and dry. No active bleeding noted. Distal pulses intact. Capillary refill less than 2 seconds. Labs (see below) Assessment/Plan 1. Left intertrochanteric fracture s/p repair 05/17/18. Management per orthopedics. 2. IDDM - will decrease Levemir until patient's by mouth intake is improved. Sliding scale insulin. Consistent carb diet. 3. Hypothyroidism on Synthroid 4. Hypertension controlled continue home meds; decrease lisinopril to 10 mg 5. History of COPD stable 6. History of CAD continue meds. Stable. 7. History of anxiety continue meds. 8. History of GERD on PPI 9. History of hyperlipidemia on statin 10. Leukocytosis likely reactive post OR. No signs of infection at this time. Afebrile. Continue to monitor. DVT prophy: On Xarelto per ortho Dispo: Pending PT/clinical improvement. VS,Fishbone, I+O VS, Fishbone, I+O Laboratory Tests 05/19/18 09:15 Red Blood Count 3.58 L, Mean Corpuscular Volume 94.1, Mean Corpuscular Hemoglobin 30.4, Mean Corpuscular Hemoglobin Concent 32.3, Red Cell Distribution Width 13.0, Calcium Level 8.3 L Vital Signs Date Time Temp Pulse Resp B/P (MAP) Pulse Ox O2 Delivery O2 Flow Rate FiO2 05/19/18 14:00 98.7 76 18 106/61 (76) 94 05/18/18 14:00 2.0 05/17/18 13:35 Room Air I&O- Last 24 Hours up to 6 AM 05/19/18 06:00 Intake Total 1710 ml Output Total 950 ml Balance 760 ml TESS WINCHESTER MD May 19, 2018 14:58
[2018-05-19] MEDS: NICOTINE 21MG/24HR 1 EA TRANSDERMAL TD SCH (15:26)
[2018-05-19] MEDS: ESCITALOPRAM OXALATE 10 MG TAB (LEXAPRO) PO SCH (15:26)
[2018-05-19] MEDS ORDERED: GLUCAGON FOR INJ 1 MG VIAL (J1610) SC PRN (17:15)
[2018-05-19] MEDS ORDERED: DEXTROSE 50% 50 ML SYRINGE IV PRN (17:15)
[2018-05-19] MEDS ORDERED: GLUCOSE 4 GM CHEW TABLET PO PRN (17:15)
[2018-05-19] MEDS: HumaLOG INSULIN (NovoLOG) PER UNIT SC SCH ×2 (17:20→20:39)
[2018-05-19] MEDS ORDERED: LEVEMIR (INSULIN DETEMIR) 1 UNITS/0.01ML SC ONE (17:30)
[2018-05-19 22:00] VITALS: BP_SYST 115; BP_SYST 117; BP_SYST 121; BP_SYST 126; BP_DIAS 55; BP_DIAS 63; BP_DIAS 69; BP_DIAS 73
[2018-05-20] MEDS: PERCOCET 5MG/325MG TAB PO PRN ×3 (05:28→18:26)
[2018-05-20] MEDS: LEVOTHYROXINE 100MCG TABLET (0.1MG) PO SCH (05:28)
[2018-05-20] MEDS: LEVOTHYROXINE 75MCG TABLET (0.075MG) PO SCH (05:28)
[2018-05-20 06:00] VITALS: BP_SYST 108; BP_SYST 110; BP_SYST 112; BP_SYST 122; BP_DIAS 55; BP_DIAS 67; BP_DIAS 69; BP_DIAS 71
[2018-05-20 07:20] LABS: HEMATOCRIT 28.2 % (36.0-47.0); HEMOGLOBIN 9.6 g/dl (12.0-15.5); MEAN CORPUSCULAR HEMOGLOBIN 31.5 pg (27.0-33.0); MEAN CORPUSCULAR VOLUME 92.5 fl (80.0-96.0); PLATELET COUNT, AUTOMATED 198 10^3/uL (150-450); RED BLOOD COUNT 3.05 10^6/uL (4.00-5.40); WHITE BLOOD COUNT 11.9 10^3/uL (4.0-10.0)
[2018-05-20 07:40] LABS: BLOOD UREA NITROGEN 14 MG/DL (7-18); CALCIUM LEVEL 7.8 MG/DL (8.8-10.2); CARBON DIOXIDE LEVEL 26 MEQ/L (21-32); CHLORIDE LEVEL 104 MEQ/L (98-107); GLOMERULAR FILTRATION RATE > 60.0 (>45); GLUCOSE, FASTING 160 MG/DL (70-100); POTASSIUM SERUM 3.9 MEQ/L (3.5-5.1); SODIUM LEVEL 136 MEQ/L (136-145)
[2018-05-20] MEDS ORDERED: PERC5TAB12 PO (07:59)
[2018-05-20] MEDS ORDERED: XARE10TA PO (07:59)
[2018-05-20] MEDS: SENOKOT S TAB PO SCH ×2 (08:09→21:48)
[2018-05-20] MEDS: LORATADINE 10 MG TAB PO SCH (08:09)
[2018-05-20] MEDS: ESCITALOPRAM OXALATE 10 MG TAB (LEXAPRO) PO SCH (08:09)
[2018-05-20] MEDS: LISINOPRIL 10 MG TAB PO SCH (08:09)
[2018-05-20] MEDS: MOM 30ML SUSPENSION UDC PO SCH (08:09)
[2018-05-20] MEDS: ATORVASTATIN 20 MG TAB PO SCH (08:09)
[2018-05-20] MEDS: OMEPRAZOLE 20 MG CAP PO SCH (08:09)
[2018-05-20] MEDS: RIVAROXABAN 10 MG TAB (XARELTO) PO SCH (08:09)
[2018-05-20] MEDS: MIRALAX *UNIT DOSE* 17GM PACKET PO SCH (08:10)
[2018-05-20] MEDS: HumaLOG INSULIN (NovoLOG) PER UNIT SC SCH ×4 (08:10→21:00)
[2018-05-20] MEDS: METOPROLOL TART 25 MG TABLET PO SCH ×2 (08:10→21:49)
[2018-05-20] MEDS: NICOTINE 21MG/24HR 1 EA TRANSDERMAL TD SCH (08:11)
[2018-05-20] MEDS: TIOTROPIUM INHALER/CAPSULE (SPIRIVA) INH SCH (08:22)
[2018-05-20] MEDS: ADVAIR HFA 115/21MCG INHALER INH SCH ×2 (08:24→20:21)
[2018-05-20] MEDS ORDERED: LEVEMIR (INSULIN DETEMIR) 1 UNITS/0.01ML SC SCH ×4 (09:00→21:00)
[2018-05-20 14:00] VITALS: BP 116/55
--- NOTE | 2018-05-20 15:11 | IPNPDOC ---
Text Note Date of Service The patient was seen on 05/20/18. NOTE Subjective: Patient continues to improve. Patient is working with physical the rapy. Blood sugars better controlled. Objective: Vitals: (see below) General: No acute distress, laying comfortably in bed. HEENT: Moist mucous membranes. Neck: No JVD or lymphadenopathy Cardiac: RRR, No murmurs Pulm: Clear to auscultation b/l. No wheezing, rhonchi Abd: NT/ND + BS Ext: No cyanosis. Minimal swelling at the left hip region with bandage clean and dry. No active bleeding noted. Distal pulses intact. Capillary refill less than 2 seconds. Labs (see below) Assessment/Plan 1. Left intertrochanteric fracture s/p repair 05/17/18. Management per orthopedics. 2. IDDM - will decrease Levemir until patient's by mouth intake is improved. Sliding scale insulin. Consistent carb diet. 3. Hypothyroidism on Synthroid 4. Hypertension controlled continue home meds; decrease lisinopril to 10 mg 5. History of COPD stable 6. History of CAD continue meds. Stable. 7. History of anxiety continue meds. 8. History of GERD on PPI 9. History of hyperlipidemia on statin 10. Leukocytosis likely reactive post OR. No signs of infection at this time. Afebrile. Continue to monitor. Improving. DVT prophy: On Xarelto per ortho Pending PT clearance. VS,Fishbone, I+O VS, Fishbone, I+O Laboratory Tests 05/20/18 06:55 Red Blood Count 3.05 L, Mean Corpuscular Volume 92.5, Mean Corpuscular Hemoglobin 31.5, Mean Corpuscular Hemoglobin Concent 34.0, Red Cell Distribution Width 13.0, Calcium Level 7.8 L Vital Signs Date Time Temp Pulse Resp B/P (MAP) Pulse Ox O2 Delivery O2 Flow Rate FiO2 05/20/18 14:00 98.2 79 18 116/55 (75) 93 05/18/18 14:00 2.0 05/17/18 13:35 Room Air I&O- Last 24 Hours up to 6 AM 05/20/18 06:00 Intake Total 1980 ml Output Total 3770 ml Balance -1790 ml TESS WINCHESTER MD May 20, 2018 15:11
[2018-05-20 22:00] VITALS: BP 124/61
[2018-05-21] MEDS: PERCOCET 5MG/325MG TAB PO PRN ×2 (05:53→09:57)
[2018-05-21] MEDS: LEVOTHYROXINE 100MCG TABLET (0.1MG) PO SCH (05:54)
[2018-05-21] MEDS: LEVOTHYROXINE 75MCG TABLET (0.075MG) PO SCH (05:54)
[2018-05-21 06:00] VITALS: BP 136/65
[2018-05-21 06:36] LABS: HEMATOCRIT 28.3 % (36.0-47.0); HEMOGLOBIN 9.4 g/dl (12.0-15.5); MEAN CORPUSCULAR HEMOGLOBIN 31.1 pg (27.0-33.0); MEAN CORPUSCULAR HGB CONC 33.2 g/dl (32.0-36.5); MEAN CORPUSCULAR VOLUME 93.7 fl (80.0-96.0); PLATELET COUNT, AUTOMATED 202 10^3/uL (150-450); RED BLOOD COUNT 3.02 10^6/uL (4.00-5.40); WHITE BLOOD COUNT 9.9 10^3/uL (4.0-10.0)
[2018-05-21 06:49] LABS: BLOOD UREA NITROGEN 12 MG/DL (7-18); CALCIUM LEVEL 7.8 MG/DL (8.8-10.2); CARBON DIOXIDE LEVEL 26 MEQ/L (21-32); CHLORIDE LEVEL 104 MEQ/L (98-107); CREATININE FOR GFR 0.51 MG/DL (0.55-1.30); GLOMERULAR FILTRATION RATE > 60.0 (>45); GLUCOSE, FASTING 134 MG/DL (70-100); POTASSIUM SERUM 3.9 MEQ/L (3.5-5.1); SODIUM LEVEL 136 MEQ/L (136-145)
[2018-05-21] MEDS: HumaLOG INSULIN (NovoLOG) PER UNIT SC SCH (07:30)
[2018-05-21] MEDS ORDERED: PERC5TAB12 PO (07:45)
[2018-05-21] MEDS ORDERED: XARE10TA PO (07:45)
[2018-05-21] MEDS: TIOTROPIUM INHALER/CAPSULE (SPIRIVA) INH SCH (08:12)
[2018-05-21] MEDS: ADVAIR HFA 115/21MCG INHALER INH SCH (08:13)
[2018-05-21] MEDS ORDERED: LEVEMIR (INSULIN DETEMIR) 1 UNITS/0.01ML SC SCH (09:00)
[2018-05-21 09:54] VITALS: BP 131/77
[2018-05-21] MEDS: MIRALAX *UNIT DOSE* 17GM PACKET PO SCH (09:55)
[2018-05-21] MEDS: MOM 30ML SUSPENSION UDC PO SCH (09:55)
[2018-05-21] MEDS: LISINOPRIL 10 MG TAB PO SCH (09:58)
[2018-05-21] MEDS: ESCITALOPRAM OXALATE 10 MG TAB (LEXAPRO) PO SCH (09:58)
[2018-05-21] MEDS: SENOKOT S TAB PO SCH (09:58)
[2018-05-21] MEDS: ATORVASTATIN 20 MG TAB PO SCH (09:59)
[2018-05-21] MEDS: RIVAROXABAN 10 MG TAB (XARELTO) PO SCH (09:59)
[2018-05-21] MEDS: OMEPRAZOLE 20 MG CAP PO SCH (10:00)
[2018-05-21] MEDS: LORATADINE 10 MG TAB PO SCH (10:00)
[2018-05-21 10:03] VITALS: BP 131/77
[2018-05-21] MEDS: METOPROLOL TART 25 MG TABLET PO SCH (10:03)
[2018-05-21] MEDS: NICOTINE 21MG/24HR 1 EA TRANSDERMAL TD SCH (10:04)
--- NOTE | 2018-05-21 14:30 | DS.PDOC ---
Discharge Summary General Date of Admission May 18, 2018 at 15:20 Date of Discharge 05/21/18 Attending Physician: TESS WINCHESTER MD Specialist/Consultants Involve: Jose Green Discharge Summary PROCEDURES PERFORMED DURING STAY: None. ADMITTING/DISCHARGE DIAGNOSES: 1. Left intertrochanteric fracture s/p repair 05/17/18. Management per orthopedics. 2. IDDM - will decrease Levemir until patient's by mouth intake is improved. Sliding scale insulin. Consistent carb diet. 3. Hypothyroidism on Synthroid 4. Hypertension controlled continue home meds 5. History of COPD stable 6. History of CAD continue meds. Stable. 7. History of anxiety continue meds. 8. History of GERD on PPI 9. History of hyperlipidemia on statin 10. Leukocytosis likely reactive post OR. No signs of infection at this time. Afebrile. Continue to monitor. Improving. COMPLICATIONS/CHIEF COMPLAINT: Hip fx HISTORY OF PRESENT ILLNESS/HOSPITAL COURSE: This is a 68-year-old female past medical history diabetes, COPD, DENNISE, hypothyroidism, hypertension presents with a mechanical fall and subsequent hip fracture. Patient is in Greg left intertrochanteric fracture status post repair on 05/17 by orthopedics. Over the course of hospitalization, patient participated with physical therapy and has progressively improved. Patient's insulin regimen has been titrated while the patient was hospitalized. She also had a notable leukocytosis which is likely reactive post OR, however this has improved with no source of infection noted. Patient remained afebrile. Patient is now hemodynamically stable and would be discharged home with outpatient follow-up. DISCHARGE MEDICATIONS: Please see below. ALLERGIES: Please see below. PHYSICAL EXAMINATION ON DISCHARGE: Vitals: (see below) General: No acute distress, laying comfortably in bed. HEENT: Moist mucous membranes. Neck: No JVD or lymphadenopathy Cardiac: RRR, No murmurs Pulm: Clear to auscultation b/l. No wheezing, rhonchi Abd: NT/ND + BS Ext: No cyanosis. Minimal swelling at the left hip region with bandage clean and dry. No active bleeding noted. Distal pulses intact. Capillary refill less than 2 seconds. LABORATORY DATA: Please see below. PROGNOSIS: Good ACTIVITY: As tolerated. DIET: Low-sodium diet DISCHARGE PLAN/DISPOSITION: Home with services DISCHARGE INSTRUCTIONS: 1. Follow-up with PCP, Dr. Conte, Plastic surgery, dermatology in 1-2 weeks. Return to ED if symptoms worsen. Keep wound clean. DISCHARGE CONDITION: Stable. TIME SPENT ON DISCHARGE: Greater than 30 minutes. Vital Signs/I&Os Vital Signs Date Time Temp Pulse Resp B/P (MAP) Pulse Ox O2 Delivery O2 Flow Rate FiO2 05/21/18 10:27 18 05/21/18 10:03 88 131/77 05/21/18 06:00 97.5 98 05/18/18 14:00 2.0 05/17/18 13:35 Room Air I&O- Last 24 Hours up to 6 AM 05/21/18 06:00 Intake Total 2400 ml Output Total 3000 ml Balance -600 ml Laboratory Data Labs 24H Laboratory Tests 2 05/20/18 16:21: Bedside Glucose (Misc Panel) 277H 05/20/18 21:10: Bedside Glucose (Misc Panel) 230H 05/21/18 06:17: Nucleated Red Blood Cells % (auto) 0.0, Anion Gap 6L, Glomerular Filtration Rate > 60.0, Blood Urea Nitrogen 12, Creatinine 0.51L, Sodium Level 136, Potassium Level 3.9, Chloride Level 104, Carbon Dioxide Level 26, Calcium Level 7.8L 05/21/18 11:34: Bedside Glucose (Misc Panel) 227H CBC/BMP Laboratory Tests 05/21/18 06:17 Red Blood Count 3.02 L, Mean Corpuscular Volume 93.7, Mean Corpuscular Hemoglobin 31.1, Mean Corpuscular Hemoglobin Concent 33.2, Red Cell Distribution Width 13.1, Calcium Level 7.8 L FSBS Laboratory Tests Test 05/20/18 16:21 05/20/18 21:10 05/21/18 11:34 Range/Units Bedside Glucose (Misc Panel) 277 230 227 80-115 MG/DL Microbiology Microbiology 05/19/18 MRSA Screen - Final, Complete Discharge Medications Scheduled (Baldemar Sands) 300 Unit/Ml Inj, 60 UNIT SC QHS, (Reported) Atorvastatin Calcium (Atorvastatin Calcium) 40 Mg Tab, 40 MG PO DAILY, (Reported) Empagliflozin (Jardiance) 10 Mg Tab, 10 MG PO DAILY, (Reported) Insulin Human Lispro (Humalog) 1 Units/0.01 Ml Inj, 1 DOSE SC AC, (Reported) PER SLIDING SCALE Levothyroxine Sodium (Synthroid) 175 Mcg Tab, 175 MCG PO DAILY, (Reported) Lisinopril (Lisinopril) 20 Mg Tab, 20 MG PO DAILY, (Reported) Loratadine (Claritin) 10 Mg Cap, 10 MG PO DAILY, (Reported) Metoprolol Tartrate (Metoprolol Tartrate) 25 Mg Tab, 25 MG PO BID, (Reported) Omeprazole (Omeprazole) 40 Mg Cap, 40 MG PO DAILY, (Reported) Rivaroxaban (Xarelto) 10 Mg Tab, 10 MG PO DAILY Salmeterol/Fluticasone (Advair Diskus 250-50 Mcg/Dose) 14 Puff/Inhaler Aerp, 1 PUFF INH BID, (Reported) Tiotropium Sharples Monohydrate (Spiriva Handihaler) 18 Mcg Cap, 1 INHALATION INH DAILY, (Reported) Scheduled PRN Albuterol Sulfate (Ventolin Hfa) 108 Mcg/Act Aer, 2 PUFFS INH Q4H PRN for SHORTNESS OF BREATH, (Reported) Albuterol/Ipratropium (Combivent Respimat 20-100 Mcg/Act) 1 Aer Aer, 1 PUFF INH QID PRN for SHORTNESS OF BREATH, (Reported) Oxycodone/Acetaminophen (Percocet 5-325 mg) 1 Tab Tab, 1 TAB PO Q4H PRN for PAIN Allergies Coded Allergies: Sulfa Drugs (Verified Allergy, Unknown, 06/21/12) Sulfa Drugs Cross Reactors (Verified Allergy, Unknown, 06/21/12) TESS WINCHESTER MD May 21, 2018 14:30
== END 2018-05-21 13:07 | disposition home health service (06) | DRG 482 ==
LOC: EDBD 10:04 → M ED 10:04 → M ED INP 13:06 → M MS5PR 18:15 → INTOOBSV 05-18 15:20 → OBSVTOIN 05-18 15:20
PROVIDERS: ADMIT Internal Medicine; ATTEND Internal Medicine
PROC: 0QS706Z Reposition Left Upper Femur with Intramedullary Internal Fixation Device, Open Approach (ICD-10-PCS; principal; 2018-05-17 13:01)
DX: S72.142A Displaced intertrochanteric fracture of left femur, initial encounter for closed fracture (principal); W00.0XXA Fall on same level due to ice and snow, initial encounter; Y92.009 Unspecified place in unspecified non-institutional (private) residence as the place of occurrence of the external cause; E11.51 Type 2 diabetes mellitus with diabetic peripheral angiopathy without gangrene; J44.9 Chronic obstructive pulmonary disease, unspecified; K21.9 Gastro-esophageal reflux disease without esophagitis; E03.9 Hypothyroidism, unspecified; I10 Essential (primary) hypertension; E78.5 Hyperlipidemia, unspecified; I25.10 Atherosclerotic heart disease of native coronary artery without angina pectoris; F32.9 Major depressive disorder, single episode, unspecified; F17.210 Nicotine dependence, cigarettes, uncomplicated; F41.9 Anxiety disorder, unspecified; Y93.E9 Activity, other interior property and clothing maintenance; G47.30 Sleep apnea, unspecified; G43.909 Migraine, unspecified, not intractable, without status migrainosus; Z90.49 Acquired absence of other specified parts of digestive tract; Z90.710 Acquired absence of both cervix and uterus; Z88.2 Allergy status to sulfonamides; Z79.899 Other long term (current) drug therapy; Z79.4 Long term (current) use of insulin

== ENCOUNTER → 2018-05-26 | Outpatient (REF) ==
[~2018-05-26] MED LIST changes: +AZIT-12 PO; +CLAR10CA3 PO; +JARD1TAB PO; +LISI-538 PO; +METO25TA4 PO; +OMEP40CA2 PO; +PERC5TAB12 PO; +PRED10TA2 PO; +XARE10TA PO
[2018-05-26 09:50] LABS: HEMATOCRIT 33.2 % (36.0-47.0); HEMOGLOBIN 10.9 g/dl (12.0-15.5); MEAN CORPUSCULAR HEMOGLOBIN 31.1 pg (27.0-33.0); MEAN CORPUSCULAR HGB CONC 32.8 g/dl (32.0-36.5); MEAN CORPUSCULAR VOLUME 94.9 fl (80.0-96.0); PLATELET COUNT, AUTOMATED 447 10^3/uL (150-450); WHITE BLOOD COUNT 10.5 10^3/uL (4.0-10.0)
[2018-05-26 10:17] LABS: BLOOD UREA NITROGEN 13 MG/DL (7-18); CALCIUM LEVEL 8.5 MG/DL (8.8-10.2); CARBON DIOXIDE LEVEL 24 MEQ/L (21-32); CHLORIDE LEVEL 107 MEQ/L (98-107); CREATININE FOR GFR 0.66 MG/DL (0.55-1.30); GLOMERULAR FILTRATION RATE > 60.0 (>45); GLUCOSE, FASTING 183 MG/DL (70-100); POTASSIUM SERUM 4.5 MEQ/L (3.5-5.1); SODIUM LEVEL 140 MEQ/L (136-145)
== END ==
PROVIDERS: ATTEND Family Medicine
DX: Z47.89 Encounter for other orthopedic aftercare (principal); Z98.890 Other specified postprocedural states; Z79.899 Other long term (current) drug therapy

== ENCOUNTER → 2018-06-01 | Outpatient (REF) ==
[2018-06-01 15:51] LABS: HEMATOCRIT 36.3 % (36.0-47.0); HEMOGLOBIN 12.1 g/dl (12.0-15.5); MEAN CORPUSCULAR HEMOGLOBIN 31.6 pg (27.0-33.0); MEAN CORPUSCULAR HGB CONC 33.3 g/dl (32.0-36.5); MEAN CORPUSCULAR VOLUME 94.8 fl (80.0-96.0); PLATELET COUNT, AUTOMATED 569 10^3/uL (150-450); RED BLOOD COUNT 3.83 10^6/uL (4.00-5.40); WHITE BLOOD COUNT 12.5 10^3/uL (4.0-10.0)
[2018-06-01 16:03] LABS: BLOOD UREA NITROGEN 16 MG/DL (7-18); CALCIUM LEVEL 9.1 MG/DL (8.8-10.2); CARBON DIOXIDE LEVEL 22 MEQ/L (21-32); CHLORIDE LEVEL 105 MEQ/L (98-107); CREATININE FOR GFR 0.97 MG/DL (0.55-1.30); GLOMERULAR FILTRATION RATE > 60.0 (>45); GLUCOSE, FASTING 171 MG/DL (70-100); POTASSIUM SERUM 4.8 MEQ/L (3.5-5.1); SODIUM LEVEL 136 MEQ/L (136-145)
== END ==
PROVIDERS: ATTEND Family Medicine
DX: Z47.89 Encounter for other orthopedic aftercare (principal); Z98.890 Other specified postprocedural states; Z79.899 Other long term (current) drug therapy

== ENCOUNTER → 2018-06-11 | Outpatient (REF) | payer MEDICARE ==
[2018-06-11 20:34] LABS: APPEARANCE, URINE CLEAR (CLEAR); BACTERIA, URINE AUTO 1+ (NEGATIVE); BILIRUBIN, URINE AUTO NEGATIVE (NEGATIVE); BLOOD, URINE BLOOD NEGATIVE (NEGATIVE); COLOR, URINE YELLOW (YELLOW); GLUCOSE, URINE (UA) AUTO 3+ mg/dL (NEGATIVE); KETONE, URINE AUTO NEGATIVE (NEGATIVE); LEUKOCYTE ESTERASE, URINE AUTO NEGATIVE (NEGATIVE); NITRITE, URINE AUTO POSITIVE (NEGATIVE); PROTEIN, URINE AUTO NEGATIVE (NEGATIVE); RBC, URINE AUTO 2 /HPF (0-3); SPECIFIC GRAVITY URINE AUTO 1.022 (1.002-1.035); SQUAMOUS EPITHELIAL CELL UR AU 0 /HPF (0-6); UROBILINOGEN, URINE AUTO 0.2 mg/dL (0.0-2.0); WBC, URINE AUTO 6 /HPF (0-3)
== END ==
LOC: M SHH 09:36
PROVIDERS: ATTEND Physician Assistant
DX: N39.0 Urinary tract infection, site not specified (principal)

== ENCOUNTER 2019-01-19 08:03 | Emergency (ER) | payer BC, MEDICARE ==
[~2019-01-19] VITALS: Ht 172.7 cm; Wt 102.3 kg
[~2019-01-19 08:03] MED LIST changes: -/ADVA50050; -/TIOT18INH; +ADVA1AER2; +METO-743; -OMEP20CA3 PO; +OMEP20CA4 PO; -OMEP40CA2 PO; +OMEP40CA97 PO; +SPIR1CAP; -TOPR50TA
[2019-01-19] MEDS ORDERED: TRAM50TA2 (08:16)
[2019-01-19] MEDS ORDERED: BACL10TA2 (08:16)
[2019-01-19] MEDS ORDERED: KETO10TAB (08:16)
[2019-01-19] MEDS ORDERED: METAL LOCK LOOP XX ONE (08:21)
[2019-01-19] MEDS ORDERED: MORPHINE 2 MG/ML 1ML VIAL (J2270) IV PRN (09:00)
[2019-01-19] MEDS ORDERED: ONDANSETRON 4MG/2ML VIAL (J2405) IV ONE (09:00)
[2019-01-19 09:35] LABS: BASO # 0.1 10^3/uL (0.0-0.2); BASO % 0.9 % (0.0-1.0); EOS # 0.3 10^3/uL (0.0-0.5); EOS % 2.6 % (0.0-3.0); HEMATOCRIT 37.9 % (36.0-47.0); HEMOGLOBIN 12.6 g/dl (12.0-15.5); LYMPH # 1.8 10^3/uL (1.5-5.0); LYMPH % 17.6 % (24.0-44.0); MEAN CORPUSCULAR HEMOGLOBIN 30.7 pg (27.0-33.0); MEAN CORPUSCULAR HGB CONC 33.2 g/dl (32.0-36.5); MEAN CORPUSCULAR VOLUME 92.4 fl (80.0-96.0); MONO # 1.1 10^3/uL (0.0-0.8); MONO % 10.1 % (0.0-5.0); NEUTROPHILS # 7.2 10^3/uL (1.5-8.5); NEUTROPHILS % 68.4 % (36.0-66.0); PLATELET COUNT, AUTOMATED 216 10^3/uL (150-450); WHITE BLOOD COUNT 10.4 10^3/uL (4.0-10.0)
[2019-01-19 10:05] LABS: BLOOD UREA NITROGEN 19 MG/DL (7-18); CALCIUM LEVEL 8.7 MG/DL (8.8-10.2); CARBON DIOXIDE LEVEL 22 MEQ/L (21-32); CHLORIDE LEVEL 105 MEQ/L (98-107); CREATININE FOR GFR 0.93 MG/DL (0.55-1.30); GLOMERULAR FILTRATION RATE > 60.0 (>45); GLUCOSE, FASTING 257 MG/DL (70-100); POTASSIUM SERUM 4.6 MEQ/L (3.5-5.1); SODIUM LEVEL 135 MEQ/L (136-145)
--- NOTE | 2019-01-19 10:07 | REP ---
CT lumbar spine: 01/19/2019. Indication: Low back pain. Comparison: 05/17/2018. Technique: Unenhanced axial CT images of the lumbar spine were obtained with coronal sagittal reconstructions provided. Findings: There is a compression deformity involving the inferior endplate of L2 with mild loss of craniocaudal height. There is minimal retropulsion of the posterior cortex into the spinal canal inferiorly. There is no evidence of acute fracture. No severe spinal canal narrowing is detected. Aortoiliac atherosclerotic disease is present. No definite focal disc herniation is detected. The neural foramen appear patent throughout. Impression: No acute fracture/osseous injury of the lumbar spine detected. Chronic appearing inferior L2 endplate compression deformity. Electronically Signed by Camacho Paredes DO 01/19/2019 09:58 A
[2019-01-19] MEDS ORDERED: KETOROLAC 30 MG/ML VIAL (J1885) IV ONE (10:30)
[2019-01-19] MEDS ORDERED: LIDOCAINE 5% (LIDODERM) PATCH TD ONE (10:30)
--- NOTE | 2019-01-19 10:32 | REP ---
CT abdomen and pelvis without IV or oral contrast: Renal stone protocol. History: Recent right UVJ stone with hydroureter and hydronephrosis. Comparison CT study October 27, 2017. CT findings: Preliminary digital forming machine upkeep mechanic helper radiograph demonstrates moderate stool and gaseous distension of the colon and a few small bowel loops. The lung bases are clear on axial CT images. The liver and the spleen are normal in size homogeneous in texture. No adrenal lesion is seen. The gallbladder and pancreas are unremarkable. There is no evidence of hydronephrosis or intrarenal calculus is in either kidney. No ureteral or bladder calculus is observed. The urinary bladder is largely empty at the time of scanning. Vascular calcification is seen. Normal caliber aorta. There is scattered left colonic diverticulosis without CT evidence of diverticulitis. Moderate colonic stool is present as seen on the forming machine upkeep mechanic helper view. The uterus is surgically absent. No pelvic mass, cyst or adenopathy is appreciated. There is an orthopedic fixation device in the left proximal femur. The appendix is surgically absent. No bony destructive lesion is seen. No abdominal wall defect is observed. Bone window settings demonstrate subtle collapse of the inferior endplate of the L2 vertebral body. This is unchanged from the comparison CT study dated October 27, 2017. There is no adjacent edema. There is some evidence of healing sclerosis. This is most likely a subacute finding. Impression: Left colonic diverticulosis without CT evidence of diverticulitis. No urinary tract calculus or hydronephrosis is seen. No acute intra-abdominal abnormality. Mild collapse of the inferior endplate of the L2 vertebral body with healing sclerosis consistent with a subacute osteoporotic compression deformity. Electronically Signed by Andrea Parham MD 01/19/2019 11:31 A
[2019-01-19] MEDS ORDERED: LIDO5DIS41 TD (10:48)
[2019-01-19 10:56] VITALS: BP 147/61
[2019-01-19] MEDS ORDERED: **NOTE PATIENT COMMENT** MISC XX ONE (22:30)
--- NOTE | 2019-01-24 07:11 | ED PDOC ---
Post-Departure Follow-Up radiology report faxed to [facility] Dyer Sarah MD Jan 24, 2019 07:10
== END 2019-01-19 11:18 | disposition home or self-care (01) ==
LOC: M ED 08:03
DX: M54.5 Low back pain (principal); G89.29 Other chronic pain; E11.51 Type 2 diabetes mellitus with diabetic peripheral angiopathy without gangrene; I11.9 Hypertensive heart disease without heart failure; G47.33 Obstructive sleep apnea (adult) (pediatric); J44.9 Chronic obstructive pulmonary disease, unspecified; I73.9 Peripheral vascular disease, unspecified; E78.5 Hyperlipidemia, unspecified; F17.200 Nicotine dependence, unspecified, uncomplicated; Z88.0 Allergy status to penicillin; Z88.2 Allergy status to sulfonamides; Z79.899 Other long term (current) drug therapy; Z79.4 Long term (current) use of insulin; Z79.51 Long term (current) use of inhaled steroids; Z79.891 Long term (current) use of opiate analgesic; Z87.442 Personal history of urinary calculi
CPT/HCPCS: 72131; 74176; 80048; 85025; 96374; 96375; 99284; J1885; J2270; J2405

== ENCOUNTER → 2019-02-01 | Outpatient (CLI) | payer MEDICARE ==
[~2019-02-01] MED LIST changes: +BACL10TA2; +KETO10TAB; +LIDO5DIS41 TD; +TRAM50TA2
--- NOTE | 2019-02-01 08:42 | REP ---
MRI lumbar spine: 02/01/2019. Indication: Low back pain. Comparison: None. Technique: Multiplanar short and long TR sequences of the lumbar spine were obtained without IV Gadolinium. Findings: There is a grade 1/minimal anterolisthesis of L4 on L5. L2 compression fracture is present with approximately 60% loss of craniocaudal height. There is edema without significant paraspinal soft tissue abnormalities. Minimal retropulsion of the inferior posterior cortex into the spinal canal is present. L1/L2: Mild disc bulges present without significant spinal canal or neural foraminal narrowing. L2/L3: To be there is no focal disc herniation or significant spinal canal / neural foraminal narrowing. L3/L4: Bilateral facet arthropathy and diffuse disc bulge are present with mild to moderate bilateral recess and neural foraminal narrowing. L4/L5: There is a small far right lateral disc protrusion and tiny annular fissure superimposed on a diffuse disc bulge. Bilateral facet arthropathy is present. Mild to moderate left and moderate right neural foraminal narrowing is present. There is mild narrowing of the spinal canal / lateral recesses. L5/S1: Mild disc bulge and bilateral facet arthropathy are present without significant spinal canal or neural foraminal narrowing. Impression: Subacute appearing L2 compression fracture as described. Multilevel degenerative sequelae most pronounced on the right at L4/L5. Electronically Signed by Camacho Paredes DO 02/01/2019 08:34 A
== END ==
LOC: M RAD 06:22
PROVIDERS: ATTEND Physician Assistant
DX: M54.5 Low back pain (principal)

== ENCOUNTER 2019-02-10 04:02 | Emergency (ER) | payer MEDICARE ==
[~2019-02-10] VITALS: Ht 177.8 cm; Wt 96.8 kg
[2019-02-10] MEDS ORDERED: KETOROLAC 30 MG/ML VIAL (J1885) IV ONE (05:00)
[2019-02-10] MEDS ORDERED: diazePAM 10 MG/2 ML INJ (J3360) IV ONE (05:00)
[2019-02-10] MEDS: MORPHINE 4 MG/ML 1ML VIAL/SYRINGE (J2270) IV PRN ×2 (05:08→06:36)
--- NOTE | 2019-02-10 05:49 | REPVR ---
PROCEDURE INFORMATION: Exam: CT Lumbar Spine Without Contrast Exam date and time: 02/10/2019 5:14 AM Age: 69 years old Clinical history: Low back pain; Additional info: Low back pain, HX of compression FX TECHNIQUE: Imaging protocol: Computed tomography images of the lumbar spine without contrast. Radiation optimization: All CT scans at this facility use at least one of these dose optimization techniques: automated exposure control; mA and/or kV adjustment per patient size (includes targeted exams where dose is matched to clinical indication); or iterative reconstruction. COMPARISON: CT Spine, lumbar w/o contrast 01/19/2019 9:14 AM FINDINGS: Vertebrae: There is severe compression deformity of L2 vertebral body much more prominent than the prior exam. There is posterior spurring at the inferior aspect of the L2 vertebral body which appear to be slightly more posteriorly positioned indenting the thecal sac and mildly compromising the left neural foramina. Discs/Spinal canal/Neural foramina: There is lower lumbar spine facet arthrosis. Other bones/joints: There is severe diffuse bony osteopenia. Vasculature: There is moderate aortic and iliac mural calcifications. Soft tissues: Unremarkable. IMPRESSION: 1. Severe subacute L2 vertebral body compression fracture progressively more severe than the prior exam done on 01/19/2019. 2. Posterior spurring at the inferior aspect of the L2 vertebral body slightly more posteriorly positioned due to the progression of compression fracture indenting the thecal sac and mild compromising the left L2-L3 neural foramina. Electronically signed by: Ciro Lea On 02/10/2019 05:48:11 AM
[2019-02-10] MEDS ORDERED: OXYCODONE/APAP 5MG/325MG(BULK FOR ED) 1 TABLET PO ONE (06:30)
[2019-02-10] MEDS ORDERED: NAPR-837 PO (06:59)
[2019-02-10] MEDS ORDERED: PERC5TAB12 PO (06:59)
[2019-02-10] MEDS ORDERED: VALI5TAB PO (06:59)
[2019-02-10] MEDS ORDERED: diazePAM 5 MG TAB PO ONE (07:00)
[2019-02-10 08:45] VITALS: BP 133/76
--- NOTE | 2019-02-14 13:12 | ED PDOC ---
Post-Departure Follow-Up neva hoyos faxed fomral report of ct ls spine for fu Fletcher Ludwig MD Feb 14, 2019 13:12
== END 2019-02-10 08:50 | disposition home or self-care (01) ==
LOC: M ED 04:02
DX: G89.29 Other chronic pain (principal); M54.6 Pain in thoracic spine; Z79.899 Other long term (current) drug therapy; Z79.4 Long term (current) use of insulin; Z88.0 Allergy status to penicillin; Z88.1 Allergy status to other antibiotic agents; Z88.2 Allergy status to sulfonamides; Z88.8 Allergy status to other drugs, medicaments and biological substances
CPT/HCPCS: 72131; 96374; 96375; 96376; 99284; J1885; J2270; J3360

== ENCOUNTER 2019-05-03 11:17 | Inpatient (IN) | payer MEDICARE ==
[~2019-05-03] VITALS: Ht 172.7 cm; Wt 85.9 kg
[2019-05-03] MEDS: TIOTROPIUM INHALER/CAPSULE (SPIRIVA) INH SCH (08:00)
[~2019-05-03 11:17] MED LIST changes: +ACET300T52 PO; +CALC600T5 PO; +CIPR250T3 PO; +FLUC150T PO; +GABA-843 PO; -MONT10TA2 PO; +MONT10TA4 PO; +MORP15TA2 PO; +MSIR30TA PO; +NAPR-837 PO; +OMEP1CAP73 PO; -OMEP20CA4 PO; +PANT40TA3 PO; +TIZA4TAB4 PO; -TRAM50TA2; +TRAM50TA2 PO; +VALI5TAB PO; +VITA200015 PO
[2019-05-03] MEDS ORDERED: ESCI20TA PO (11:37)
[2019-05-03 13:00] LABS: BASO # 0.1 10^3/uL (0.0-0.2); BASO % 0.9 % (0.0-1.0); EOS # 0.3 10^3/uL (0.0-0.5); EOS % 3.1 % (0.0-3.0); LYMPH # 2.7 10^3/uL (1.5-5.0); MEAN CORPUSCULAR HEMOGLOBIN 31.6 pg (27.0-33.0); MEAN CORPUSCULAR HGB CONC 33.3 g/dl (32.0-36.5); MEAN CORPUSCULAR VOLUME 94.8 fl (80.0-96.0); MONO # 0.9 10^3/uL (0.0-0.8); MONO % 8.3 % (0.0-5.0); NEUTROPHILS # 6.3 10^3/uL (1.5-8.5); NEUTROPHILS % 61.3 % (36.0-66.0); PLATELET COUNT, AUTOMATED 263 10^3/uL (150-450); RED BLOOD COUNT 4.43 10^6/uL (4.00-5.40); WHITE BLOOD COUNT 10.3 10^3/uL (4.0-10.0)
[2019-05-03] MEDS ORDERED: MORPHINE 4 MG/ML 1ML VIAL/SYRINGE (J2270) IV ONE (13:30)
[2019-05-03 14:14] LABS: BLOOD UREA NITROGEN 14 MG/DL (7-18); CALCIUM LEVEL 9.2 MG/DL (8.8-10.2); CARBON DIOXIDE LEVEL 27 MEQ/L (21-32); CHLORIDE LEVEL 108 MEQ/L (98-107); CREATININE FOR GFR 0.62 MG/DL (0.55-1.30); GLOMERULAR FILTRATION RATE > 60.0 (>45); GLUCOSE, FASTING 110 MG/DL (70-100); POTASSIUM SERUM 4.2 MEQ/L (3.5-5.1); SODIUM LEVEL 140 MEQ/L (136-145)
[2019-05-03] MEDS ORDERED: TIZA4TAB4 PO (15:18)
[2019-05-03] MEDS ORDERED: VITAD1000T PO (15:18)
[2019-05-03] MEDS ORDERED: CALC600T60 PO (15:18)
[2019-05-03] MEDS ORDERED: GABA-843 PO (15:18)
--- NOTE | 2019-05-03 15:19 | HPEPDOC ---
General Date of Admission 05/03/2019 Date of Service: May 03, 2019 Chief Complaint The patient is a 69-year-old female admitted with a reason for visit of Back Pain. History of Present Illness 69 year old female presents with intractable back pain. Recent admission for similar symptoms with hx multiple compression fractures on recent MRI. States followed up with pain management 2 weeks ago and has had multiple steroid shots. Pain returned about 3-4 days ago, intractable, associated with difficulty ambulating. Denies fecal/urinary incontinence, focal weakness/numbness. Home Medications Scheduled Atorvastatin Calcium (Atorvastatin Calcium) 40 Mg Tab, 40 MG PO DAILY, (Reported) Calcium Carbonate (Calcium) 600 Mg Tablet, 600 MG PO DAILY, (Reported) Cholecalciferol (Vitamin D3) (Vitamin D3) 1,000 Unit Tablet, 1,000 UNITS PO DAILY, (Reported) Empagliflozin (Jardiance) 10 Mg Tab, 10 MG PO DAILY, (Reported) Escitalopram Oxalate (Escitalopram Oxalate) 20 Mg Tablet, 20 MG PO DAILY, (Reported) Fluconazole (Fluconazole) 150 Mg Tablet, 150 MG PO 1XWK, (Reported) MONDAYS Gabapentin (Gabapentin) 300 Mg Capsule, 300 MG PO TID, (Reported) Insulin Glargine,Hum.rec.anlog (Toujeo Solostar) 300 Unit/Ml Inj, 60 UNIT SC DAILY, (Reported) Insulin Human Lispro (Humalog) 1 Units/0.01 Ml Inj, 1 DOSE SC AC, (Reported) PER SLIDING SCALE Levothyroxine Sodium (Synthroid) 175 Mcg Tab, 175 MCG PO DAILY, (Reported) Loratadine (Claritin) 10 Mg Cap, 10 MG PO DAILY, (Reported) Metoprolol Tartrate (Metoprolol Tartrate) 25 Mg Tab, 25 MG PO BID, (Reported) Pantoprazole Sodium (Pantoprazole Sodium) 40 Mg Tablet.dr, 40 MG PO DAILY, (Reported) Salmeterol/Fluticasone (Advair 250-50 Diskus) 14 Puff/Inhaler Aerp, 1 PUFF INH BID, (Reported) Tiotropium Devine (Spiriva) 18 Mcg Cap, 18 MCG INH DAILY, (Reported) Scheduled PRN Albuterol Sulfate (Ventolin Hfa) 108 Mcg/Act Aer, 2 PUFFS INH Q4H PRN for SHORTNESS OF BREATH, (Reported) Ipratropium/Albuterol Sulfate (Combivent Respimat 20-100 Mcg) 1 Aer Aer, 1 PUFF INH QID PRN for SHORTNESS OF BREATH, (Reported) Lidocaine (Lidoderm) 5% Adh..patch, 1 PATCH TD DAILY PRN for PAIN, (Reported) APPLY TO LOWER BACK. 12HR ON, 12HR OFF Tizanidine HCl (Tizanidine HCl) 4 Mg Tablet, 4 MG PO Q4H PRN for SPASMS, (Reported) Tramadol HCl (Tramadol HCl) 50 Mg Tablet, 50 MG PO Q6H PRN for PAIN, (Reported) Allergies Coded Allergies: Sulfa (Sulfonamide Antibiotics) (Verified Allergy, Unknown, 01/19/19) amoxicillin (Verified Allergy, Unknown, 01/19/19) clavulanic acid (Verified Allergy, Unknown, 01/19/19) Past Medical History Medical History 1. Vertebral compression fracture 2. IDDM 3. COPD 4. DENNISE, does not use CPAP 5. GERD 6. Hypothyroidism 7. HLD 8. HTN 9. CAD Surgical History as above. Family History Significant Family History: No pertinent family hx Social History * Smoker: Denies Alcohol: Denies Drugs: denies A-FIB/CHADSVASC A-FIB History Current/History of A-Fib/PAF?: No Review of Systems Constitutional: Denies: Chills, Fever, Night Sweats Eyes: Denies: Pain, Vision change ENT: Denies: Head Aches, Ear Pain, Dysphagia Skin: Denies: Rash, Lesions, Breakdown Pulmonary: Denies: Dyspnea, Cough Cardiovascular: Denies: Chest Pain, Palpitations, Orthopnea, Paroxysmal Noc. Dyspnea, Lt Headedness Gastrointestinal: Denies: Nausea, Vomiting, Abdominal Pain, Diarrhea Genitourinary: Denies: Dysuria, Frequency, Incontinence, Retention Hematologic: Denies: Bruising, Bleeding Excessively Musculoskeletal: Reports: Back Pain (b/l lower back) Neurological: Denies: Weakness, Numbness, Change in speech, Confusion Psych: Reports: Mood Normal; Denies: Depression, Memory Issues Physical Examination General Exam: Positive: Alert, No Acute Distress Eye Exam: Positive: PERRLA, Conjunctiva & lids normal, EOMI; Negative: Sclera icteric ENT Exam: Positive: Atraumatic, Mucous membr. moist/pink, Pharynx Normal Neck Exam: Positive: Supple; Negative: JVD, thyromegaly Chest Exam: Positive: Clear to auscultation, Normal air movement Heart Exam: Positive: Rate Normal, Regular Rhythm, Normal S1, Normal S2; Negative: Murmurs, Rubs Telemetry: Positive: No significant arrhythmia Abdomen Exam: Positive: Normal bowel sounds, Soft; Negative: Tenderness, Hepatospenomegaly Extremity Exam: Positive: Normal pulses; Negative: Clubbing, Cyanosis, Edema Skin Exam: Positive: Nl turgor and temperature; Negative: Breakdown, Lesion Neuro Exam: Positive: Normal Gait, Normal Speech, Strength at 5/5 X4 ext, Normal Tone, Sensation Intact, Cranial Nerves 3-12 NL, Reflexes 2+, Other (unable to assess ambulation) Psych Exam: Positive: Mental status NL, Mood NL, Oriented x 3 Other physical findings point tenderness across lower back b/l Vital Signs Vital Signs Date Time Temp Pulse Resp B/P (MAP) Pulse Ox O2 Delivery O2 Flow Rate FiO2 05/03/19 13:26 20 05/03/19 11:35 98.3 82 114/81 (92) 95 Room Air Laboratory Data Labs 24H Laboratory Tests 2 05/03/19 12:41: Immature Granulocyte % (Auto) 0.4, Neutrophils (%) (Auto) 61.3, Lymphocytes (%) (Auto) 26.0, Monocytes (%) (Auto) 8.3H, Eosinophils (%) (Auto) 3.1H, Basophils (%) (Auto) 0.9, Neutrophils # (Auto) 6.3, Lymphocytes # (Auto) 2.7, Monocytes # (Auto) 0.9H, Eosinophils # (Auto) 0.3, Basophils # (Auto) 0.1, Nucleated Red Blood Cells % (auto) 0.0, Urine Color YELLOW, Urine Appearance HAZY, Urine pH 6.0, Urine Specific [place] 1.030, Urine Protein NEGATIVE, Urine Glucose (UA) 3+ H, Urine Ketones 1+H, Urine Blood NEGATIVE, Urine Nitrite POSITIVEH, Urine Bilirubin NEGATIVE, Urine Urobilinogen 0.2, Urine Leukocyte Esterase TRACEH, Urine WBC (Auto) 8H, Urine RBC (Auto) 2, Urine Hyaline Casts (Auto) 0, Urine Bacteria (Auto) 3+H, Urine Squamous Epithelial Cells 2, Urine Mucus (Auto) SMALL, Urine Sperm (Auto) 05/03/19 13:30: Anion Gap 5L, Glomerular Filtration Rate > 60.0, Calcium Level 9.2 CBC/BMP Laboratory Tests 05/03/19 12:41 05/03/19 13:30 Microbiology Microbiology 05/03/19 Urine Culture, Received Pending Assessment/Plan 1. intractable lower back pain - secondary to hx multiple compression fractures. - recent admission with similar complaints. - seen by orthopedics (no surgical intervention) and pain management at that time. - patient states she was seen by pain mgmt as outpatient, received multiple steroid shots. - bedrest for now, pain control prn. - consult to PT/OT when appropriate. 2. DM2 - FSBS/SSI coverage. 3. hypertension - continue metoprolol. 4. CAD/HLD - continue atorvastatin. 5. COPD - continue inhalers. 6. hypothyroidism - continue synthroid. Plan / VTE VTE Prophylaxis Ordered?: Yes HARSHA WELLER MD May 03, 2019 15:19
[2019-05-03] MEDS ORDERED: IPRATROPIUM 0.5MG/ALBUTEROL 2.5MG INH SOL UD 3ML (DUONEB)(J7620) INH PRN (16:15)
[2019-05-03] MEDS ORDERED: ALBUTEROL 90 MCG/ACT 8GM HFA INHALER INH PRN (16:15)
[2019-05-03 16:42] VITALS: BP 165/69
[2019-05-03] MEDS: MORPHINE 4 MG/ML 1ML VIAL/SYRINGE (J2270) IV PRN ×2 (17:18→21:34)
[2019-05-03] MEDS: ATORVASTATIN 20 MG TAB PO SCH (18:43)
[2019-05-03] MEDS: ESCITALOPRAM OXALATE 10 MG TAB (LEXAPRO) PO SCH (18:43)
[2019-05-03] MEDS: PANTOPRAZOLE 40MG TAB (PROTONIX) PO SCH (18:43)
[2019-05-03] MEDS: traMADol 50 MG TAB PO PRN (19:55)
[2019-05-03] MEDS ORDERED: PROMETHAZINE INJ 25 MG/ML VIAL (J2550) IV ONE (20:45)
[2019-05-03] MEDS: **NOTE PATIENT COMMENT** MISC XX SCH (21:00)
[2019-05-03] MEDS: METOPROLOL TART 25 MG TABLET PO SCH (21:34)
[2019-05-03] MEDS: GABAPENTIN 300 MG CAP PO SCH (21:34)
[2019-05-03] MEDS: ENOXAPARIN 40 MG/0.4 ML SYRINGE (J1650) SC SCH (21:35)
[2019-05-03 22:00] VITALS: BP 160/82
[2019-05-04 06:00] VITALS: BP 134/67
[2019-05-04] MEDS ORDERED: GLUCOSE 4 GM CHEW TABLET PO PRN (06:15)
[2019-05-04] MEDS ORDERED: DEXTROSE 50% 50 ML SYRINGE IV PRN (06:15)
[2019-05-04] MEDS ORDERED: GLUCAGON FOR INJ 1 MG VIAL (J1610) SC PRN (06:15)
[2019-05-04] MEDS: traMADol 50 MG TAB PO PRN ×3 (06:40→20:23)
[2019-05-04] MEDS: HumaLOG INSULIN (NovoLOG) PER UNIT SC SCH ×4 (07:30→20:20)
[2019-05-04] MEDS: TIOTROPIUM INHALER/CAPSULE (SPIRIVA) INH SCH (07:45)
[2019-05-04 08:23] LABS: ALBUMIN 3.3 GM/DL (3.2-5.2); ALT/SGPT 23 U/L (12-78); BILIRUBIN,TOTAL 0.4 MG/DL (0.2-1.0); BLOOD UREA NITROGEN 14 MG/DL (7-18); CALCIUM LEVEL 8.5 MG/DL (8.8-10.2); CARBON DIOXIDE LEVEL 29 MEQ/L (21-32); CHLORIDE LEVEL 108 MEQ/L (98-107); CREATININE FOR GFR 0.69 MG/DL (0.55-1.30); GLOMERULAR FILTRATION RATE > 60.0 (>45); GLUCOSE, FASTING 102 MG/DL (70-100); POTASSIUM SERUM 4.1 MEQ/L (3.5-5.1); SODIUM LEVEL 140 MEQ/L (136-145); TOTAL PROTEIN 7.2 GM/DL (6.4-8.2)
[2019-05-04] MEDS: MORPHINE 4 MG/ML 1ML VIAL/SYRINGE (J2270) IV PRN ×4 (09:30→21:59)
[2019-05-04] MEDS: ESCITALOPRAM OXALATE 10 MG TAB (LEXAPRO) PO SCH (09:30)
[2019-05-04] MEDS: VITAMIN D 1,000 INTERNATIONAL UNITS TABLET PO SCH (09:30)
[2019-05-04] MEDS: PANTOPRAZOLE 40MG TAB (PROTONIX) PO SCH (09:30)
[2019-05-04] MEDS: GABAPENTIN 300 MG CAP PO SCH ×3 (09:30→20:23)
[2019-05-04] MEDS: ATORVASTATIN 20 MG TAB PO SCH (09:30)
[2019-05-04] MEDS: METOPROLOL TART 25 MG TABLET PO SCH ×2 (09:31→20:24)
[2019-05-04] MEDS: LORATADINE 10 MG TAB PO SCH (09:31)
[2019-05-04] MEDS: **NOTE PATIENT COMMENT** MISC XX SCH ×2 (09:37→20:24)
--- NOTE | 2019-05-04 11:41 | IPNPDOC ---
Subjective Date Seen The patient was seen on 05/04/19. Subjective Chief Complaint/HPI seen and examined at bedside, states pain slightly improved, worsens on any type of movement. Denies fever/chills, N/V/D, abdominal pain, shortness of breath. General: Reports: Normal Appetite; Denies: Chills, Night Sweats, Fatigue, Malaise Constitutional: Denies: Chills, Fever, Night Sweats Eyes: Denies: Pain, Vision change ENT: Denies: Head Aches, Ear Pain, Dysphagia Skin: Denies: Rash, Lesions, Breakdown Pulmonary: Denies: Dyspnea, Cough Cardiovascular: Denies: Chest Pain, Palpitations, Orthopnea, Paroxysmal Noc. Dyspnea, Lt Headedness Gastrointestinal: Denies: Nausea, Vomiting, Abdominal Pain, Diarrhea, Constipation Genitourinary: Denies: Dysuria, Frequency, Incontinence, Retention Hematologic: Denies: Bruising, Bleeding Excessively Musculoskeletal: Reports: Back Pain, Shoulder Pain, Arm Pain, Hand Pain, Leg Pain, Foot Pain, Other Symptoms; Denies: Neck Pain, Joint Pain, Muscle Pain, Spasms Neurological: Denies: Weakness, Numbness, Change in speech, Confusion Psych: Reports: Mood Normal; Denies: Depression, Memory Issues Objective Physical Examination General Exam: Positive: Alert, No Acute Distress Eye Exam: Positive: PERRLA, Conjunctiva & lids normal, EOMI; Negative: Sclera icteric ENT Exam: Positive: Atraumatic, Mucous membr. moist/pink, Pharynx Normal Neck Exam: Positive: Supple; Negative: JVD, thyromegaly Chest Exam: Positive: Clear to auscultation, Normal air movement Heart Exam: Positive: Rate Normal, Regular Rhythm, Normal S1, Normal S2; Negative: Murmurs, Rubs Telemetry: Positive: No significant arrhythmia Abdomen Exam: Positive: Normal bowel sounds, Soft; Negative: Tenderness, Hepatospenomegaly Extremity Exam: Positive: Normal pulses; Negative: Clubbing, Cyanosis, Edema Skin Exam: Positive: Nl turgor and temperature; Negative: Breakdown, Lesion Neuro Exam: Positive: Normal Gait, Normal Speech, Strength at 5/5 X4 ext, Normal Tone, Sensation Intact, Cranial Nerves 3-12 NL, Reflexes 2+, Other (unable to assess ambulation) Psych Exam: Positive: Mental status NL, Mood NL, Oriented x 3 Assessment /Plan Assessment 1. intractable lower back pain - secondary to chronic T/L compression fractures. - recent admission with similar complaints. - seen by orthopedics (no surgical intervention) and pain management at that time. - patient states she was seen by pain mgmt as outpatient, received multiple steroid shots. - pain control prn, IV morphine, tramadol, zanaflex. - consult to PT/OT. 2. DM2 - FSBS/SSI coverage. 3. hypertension - continue metoprolol. 4. CAD/HLD - continue atorvastatin. 5. COPD - continue inhalers. 6. hypothyroidism - continue synthroid. Plan/VTE VTE Prophylaxis Ordered?: Yes VS, I&O, 24H, Fishbone Vital Signs/I&O Vital Signs Date Time Temp Pulse Resp B/P (MAP) Pulse Ox O2 Delivery O2 Flow Rate FiO2 05/04/19 09:40 16 05/04/19 09:31 86 138/76 05/04/19 06:00 97.6 94 05/03/19 21:34 Room Air I&O- Last 24 Hours up to 6 AM 05/04/19 06:00 Intake Total 600 ml Output Total 500 ml Balance 100 ml Laboratory Data 24H LABS Laboratory Tests 2 05/03/19 12:41: Immature Granulocyte % (Auto) 0.4, Neutrophils (%) (Auto) 61.3, Lymphocytes (%) (Auto) 26.0, Monocytes (%) (Auto) 8.3H, Eosinophils (%) (Auto) 3.1H, Basophils (%) (Auto) 0.9, Neutrophils # (Auto) 6.3, Lymphocytes # (Auto) 2.7, Monocytes # (Auto) 0.9H, Eosinophils # (Auto) 0.3, Basophils # (Auto) 0.1, Nucleated Red Blood Cells % (auto) 0.0, Urine Color YELLOW, Urine Appearance HAZY, Urine pH 6.0, Urine Specific [place] 1.030, Urine Protein NEGATIVE, Urine Glucose (UA) 3+H, Urine Ketones 1+H, Urine Blood NEGATIVE, Urine Nitrite POSITIVEH, Urine Bilirubin NEGATIVE, Urine Urobilinogen 0.2, Urine Leukocyte Esterase TRACEH, Urine WBC (Auto) 8H, Urine RBC (Auto) 2, Urine Hyaline Casts (Auto) 0, Urine Bacteria (Auto) 3+H, Urine Squamous Epithelial Cells 2, Urine Mucus (Auto) SMALL, Urine Sperm (Auto) 05/03/19 13:30: Anion Gap 5L, Glomerular Filtration Rate > 60.0, Calcium Level 9.2 05/04/19 06:04: Bedside Glucose (Misc Panel) 59L 05/04/19 06:36: Bedside Glucose (Misc Panel) 124H 05/04/19 07:11: Anion Gap 3L, Glomerular Filtration Rate > 60.0, Calcium Level 8.5L, Total Bilirubin 0.4, Aspartate Amino Transf (AST/SGOT) 26, Alanine Aminotransferase (ALT/SGPT) 23, Alkaline Phosphatase 98, Total Protein 7.2, Albumin 3.3, Albumin/Globulin Ratio 0.85L CBC/BMP Laboratory Tests 05/03/19 12:41 05/03/19 13:30 05/04/19 07:11 Microbiology Microbiology 05/03/19 Urine Culture, Received Pending HARSHA WELLER MD May 04, 2019 11:41
[2019-05-04] MEDS: tiZANidine 4 MG TAB PO PRN ×2 (12:31→20:23)
[2019-05-04 14:00] VITALS: BP 142/67
[2019-05-04] MEDS: ENOXAPARIN 40 MG/0.4 ML SYRINGE (J1650) SC SCH (20:23)
[2019-05-04 22:00] VITALS: BP 127/59
[2019-05-05] MEDS: MORPHINE 4 MG/ML 1ML VIAL/SYRINGE (J2270) IV PRN ×4 (03:00→22:35)
[2019-05-05 06:00] VITALS: BP 132/73
[2019-05-05 06:05] LABS: HEMATOCRIT 40.7 % (36.0-47.0); HEMOGLOBIN 13.6 g/dl (12.0-15.5); MEAN CORPUSCULAR HEMOGLOBIN 31.8 pg (27.0-33.0); MEAN CORPUSCULAR HGB CONC 33.4 g/dl (32.0-36.5); MEAN CORPUSCULAR VOLUME 95.1 fl (80.0-96.0); PLATELET COUNT, AUTOMATED 253 10^3/uL (150-450); RED BLOOD COUNT 4.28 10^6/uL (4.00-5.40); WHITE BLOOD COUNT 10.1 10^3/uL (4.0-10.0)
[2019-05-05] MEDS: tiZANidine 4 MG TAB PO PRN ×2 (06:21→12:51)
[2019-05-05] MEDS: traMADol 50 MG TAB PO PRN ×3 (06:21→20:48)
[2019-05-05 06:31] LABS: BLOOD UREA NITROGEN 16 MG/DL (7-18); CALCIUM LEVEL 8.6 MG/DL (8.8-10.2); CARBON DIOXIDE LEVEL 27 MEQ/L (21-32); CHLORIDE LEVEL 109 MEQ/L (98-107); CREATININE FOR GFR 0.56 MG/DL (0.55-1.30); GLOMERULAR FILTRATION RATE > 60.0 (>45); GLUCOSE, FASTING 99 MG/DL (70-100); POTASSIUM SERUM 4.3 MEQ/L (3.5-5.1); SODIUM LEVEL 141 MEQ/L (136-145)
[2019-05-05] MEDS: HumaLOG INSULIN (NovoLOG) PER UNIT SC SCH ×4 (07:08→20:49)
[2019-05-05] MEDS: TIOTROPIUM INHALER/CAPSULE (SPIRIVA) INH SCH (08:04)
[2019-05-05] MEDS: **NOTE PATIENT COMMENT** MISC XX SCH ×2 (09:00→20:50)
[2019-05-05] MEDS: VITAMIN D 1,000 INTERNATIONAL UNITS TABLET PO SCH (10:14)
[2019-05-05] MEDS: LORATADINE 10 MG TAB PO SCH (10:14)
[2019-05-05] MEDS: METOPROLOL TART 25 MG TABLET PO SCH ×2 (10:15→20:55)
[2019-05-05] MEDS: ATORVASTATIN 20 MG TAB PO SCH (10:15)
[2019-05-05] MEDS: PANTOPRAZOLE 40MG TAB (PROTONIX) PO SCH (10:15)
[2019-05-05] MEDS: GABAPENTIN 300 MG CAP PO SCH ×3 (10:15→20:47)
[2019-05-05] MEDS: ESCITALOPRAM OXALATE 10 MG TAB (LEXAPRO) PO SCH (10:15)
--- NOTE | 2019-05-05 12:40 | IPNPDOC ---
Subjective Date Seen The patient was seen on 05/05/19. Subjective Chief Complaint/HPI seen and examined at bedside, states pain worse when lying in bed, better when ambulating and seated upright in chair. General: Reports: Normal Appetite; Denies: Chills, Night Sweats, Fatigue, Malaise Constitutional: Denies: Chills, Fever, Night Sweats Eyes: Denies: Pain, Vision change ENT: Denies: Head Aches, Ear Pain, Dysphagia Skin: Denies: Rash, Lesions, Breakdown Pulmonary: Denies: Dyspnea, Cough Cardiovascular: Denies: Chest Pain, Palpitations, Orthopnea, Paroxysmal Noc. Dyspnea, Lt Headedness Gastrointestinal: Denies: Nausea, Vomiting, Abdominal Pain, Diarrhea, Constipation Genitourinary: Denies: Dysuria, Frequency, Incontinence, Retention Hematologic: Denies: Bruising, Bleeding Excessively Musculoskeletal: Denies: Neck Pain, Back Pain, Joint Pain, Muscle Pain, Spasms Neurological: Denies: Weakness, Numbness, Change in speech, Confusion Psych: Reports: Mood Normal; Denies: Depression, Memory Issues Objective Physical Examination General Exam: Positive: Alert, No Acute Distress Eye Exam: Positive: PERRLA, Conjunctiva & lids normal, EOMI; Negative: Sclera icteric ENT Exam: Positive: Atraumatic, Mucous membr. moist/pink, Pharynx Normal Neck Exam: Positive: Supple; Negative: JVD, thyromegaly Chest Exam: Positive: Clear to auscultation, Normal air movement Heart Exam: Positive: Rate Normal, Regular Rhythm, Normal S1, Normal S2; Negative: Murmurs, Rubs Telemetry: Positive: No significant arrhythmia Abdomen Exam: Positive: Normal bowel sounds, Soft; Negative: Tenderness, Hepatospenomegaly Extremity Exam: Positive: Normal pulses; Negative: Clubbing, Cyanosis, Edema Skin Exam: Positive: Nl turgor and temperature; Negative: Breakdown, Lesion Neuro Exam: Positive: Normal Gait, Normal Speech, Strength at 5/5 X4 ext, Normal Tone, Sensation Intact, Cranial Nerves 3-12 NL, Reflexes 2+, Other (unable to assess ambulation) Psych Exam: Positive: Mental status NL, Mood NL, Oriented x 3 Assessment /Plan Assessment 1. intractable lower back pain - secondary to chronic T/L compression fractures. - recent admission with similar complaints. - seen by orthopedics (no surgical intervention) and pain management at that time. - patient states she was seen by pain mgmt as outpatient, received multiple steroid shots. - pain control prn, IV morphine, tramadol, zanaflex. - working with PT/OT, slow improvement. 2. DM2 - FSBS/SSI coverage. 3. hypertension - continue metoprolol. 4. CAD/HLD - continue atorvastatin. 5. COPD - continue inhalers. 6. hypothyroidism - continue synthroid. 7. UTI - antibiotics, f/u cultures. Plan/VTE VTE Prophylaxis Ordered?: Yes VS, I&O, 24H, Fishbone Vital Signs/I&O Vital Signs Date Time Temp Pulse Resp B/P (MAP) Pulse Ox O2 Delivery O2 Flow Rate FiO2 05/05/19 10:22 20 05/05/19 10:15 75 161/76 05/05/19 06:00 97.6 90 Room Air I&O- Last 24 Hours up to 6 AM 05/05/19 06:00 Intake Total 2080 ml Balance 2080 ml Laboratory Data 24H LABS Laboratory Tests 2 05/04/19 16:15: Bedside Glucose (Misc Panel) 118H 05/04/19 20:15: Bedside Glucose (Misc Panel) 102 05/05/19 05:54: Nucleated Red Blood Cells % (auto) 0.0, Anion Gap 5L, Glomerular Filtration Rate > 60.0, Calcium Level 8.6L 05/05/19 11:26: Bedside Glucose (Misc Panel) 304H CBC/BMP Laboratory Tests 05/05/19 05:54 Microbiology Microbiology 05/03/19 Urine Culture - Final, Complete Enterobacter Aerogenes HARSHA WELLER MD May 05, 2019 12:40
[2019-05-05] MEDS ORDERED: MOM 30ML SUSPENSION UDC PO PRN (12:45)
[2019-05-05] MEDS: DOCUSATE SODIUM 100 MG CAP PO SCH ×2 (12:51→20:47)
[2019-05-05 14:00] VITALS: BP 131/64
[2019-05-05] MEDS: cefTRIAXone SOD 1 GM in D5W MINI-BAG PLUS 50 ML IV SCH (17:18)
[2019-05-05] MEDS: ENOXAPARIN 40 MG/0.4 ML SYRINGE (J1650) SC SCH (20:49)
[2019-05-05 22:00] VITALS: BP 124/76
[2019-05-06 06:00] VITALS: BP 130/79
[2019-05-06 07:23] LABS: HEMATOCRIT 41.3 % (36.0-47.0); HEMOGLOBIN 13.5 g/dl (12.0-15.5); MEAN CORPUSCULAR HGB CONC 32.7 g/dl (32.0-36.5); MEAN CORPUSCULAR VOLUME 94.7 fl (80.0-96.0); PLATELET COUNT, AUTOMATED 260 10^3/uL (150-450); RED BLOOD COUNT 4.36 10^6/uL (4.00-5.40); WHITE BLOOD COUNT 9.5 10^3/uL (4.0-10.0)
[2019-05-06] MEDS: HumaLOG INSULIN (NovoLOG) PER UNIT SC SCH ×4 (08:39→21:37)
[2019-05-06] MEDS: traMADol 50 MG TAB PO PRN ×3 (08:42→21:36)
[2019-05-06] MEDS: GABAPENTIN 300 MG CAP PO SCH ×3 (09:27→21:36)
[2019-05-06] MEDS: ESCITALOPRAM OXALATE 10 MG TAB (LEXAPRO) PO SCH (09:27)
[2019-05-06] MEDS: DOCUSATE SODIUM 100 MG CAP PO SCH ×2 (09:27→21:35)
[2019-05-06] MEDS: ATORVASTATIN 20 MG TAB PO SCH (09:28)
[2019-05-06] MEDS: METOPROLOL TART 25 MG TABLET PO SCH ×2 (09:28→21:36)
[2019-05-06] MEDS: PANTOPRAZOLE 40MG TAB (PROTONIX) PO SCH (09:28)
[2019-05-06] MEDS: VITAMIN D 1,000 INTERNATIONAL UNITS TABLET PO SCH (09:28)
[2019-05-06] MEDS: LORATADINE 10 MG TAB PO SCH (09:28)
[2019-05-06] MEDS: tiZANidine 4 MG TAB PO PRN ×3 (09:28→19:49)
[2019-05-06] MEDS: LIDOCAINE 5% (LIDODERM) PATCH TD PRN (09:29)
[2019-05-06] MEDS: **NOTE PATIENT COMMENT** MISC XX SCH ×2 (09:34→21:37)
[2019-05-06] MEDS: TIOTROPIUM INHALER/CAPSULE (SPIRIVA) INH SCH (09:51)
--- NOTE | 2019-05-06 10:42 | IPNPDOC ---
Subjective Date Seen The patient was seen on 05/06/19. Subjective Chief Complaint/HPI Seen and examined at bedside, doing better today, tolerating PT. General: Reports: Normal Appetite; Denies: Chills, Night Sweats, Fatigue, Malaise Constitutional: Denies: Chills, Fever, Night Sweats Eyes: Denies: Pain, Vision change ENT: Denies: Head Aches, Ear Pain, Dysphagia Skin: Denies: Rash, Lesions, Breakdown Pulmonary: Denies: Dyspnea, Cough Cardiovascular: Denies: Chest Pain, Palpitations, Orthopnea, Paroxysmal Noc. Dyspnea, Lt Headedness Gastrointestinal: Denies: Nausea, Vomiting, Abdominal Pain, Diarrhea, Constipation Genitourinary: Denies: Dysuria, Frequency, Incontinence, Retention Hematologic: Denies: Bruising, Bleeding Excessively Musculoskeletal: Denies: Neck Pain, Back Pain, Joint Pain, Muscle Pain, Spasms Neurological: Denies: Weakness, Numbness, Change in speech, Confusion Psych: Reports: Mood Normal; Denies: Depression, Memory Issues Objective Physical Examination General Exam: Positive: Alert, No Acute Distress Eye Exam: Positive: PERRLA, Conjunctiva & lids normal, EOMI; Negative: Sclera icteric ENT Exam: Positive: Atraumatic, Mucous membr. moist/pink, Pharynx Normal Neck Exam: Positive: Supple; Negative: JVD, thyromegaly Chest Exam: Positive: Clear to auscultation, Normal air movement Heart Exam: Positive: Rate Normal, Regular Rhythm, Normal S1, Normal S2; Negative: Murmurs, Rubs Telemetry: Positive: No significant arrhythmia Abdomen Exam: Positive: Normal bowel sounds, Soft; Negative: Tenderness, Hepatospenomegaly Female Exam: Positive: Nl Ext Genitalia; Negative: Lesions, Discharge, Odor, Tenderness Extremity Exam: Positive: Normal pulses; Negative: Clubbing, Cyanosis, Edema Skin Exam: Positive: Nl turgor and temperature; Negative: Breakdown, Lesion Neuro Exam: Positive: Normal Gait, Normal Speech, Strength at 5/5 X4 ext, Normal Tone, Sensation Intact, Cranial Nerves 3-12 NL, Reflexes 2+, Other ( unable to assess ambulation) Psych Exam: Positive: Mental status NL, Mood NL, Oriented x 3 Assessment /Plan Assessment 1. intractable lower back pain - secondary to chronic T/L compression fractures. - recent admission with similar complaints. - seen by orthopedics (no surgical intervention) and pain management at that time. - patient states she was seen by pain mgmt as outpatient, received multiple steroid shots. - pain control prn, IV morphine d/c'd, continue tramadol, zanaflex. - working with PT/OT. 2. DM2 - FSBS/SSI coverage. 3. hypertension - continue metoprolol. 4. CAD/HLD - continue atorvastatin. 5. COPD - continue inhalers. 6. hypothyroidism - continue synthroid. 7. UTI - continue IV antibiotics. Plan/VTE VTE Prophylaxis Ordered?: Yes VS, I&O, 24H, Fishbone Vital Signs/I&O Vital Signs Date Time Temp Pulse Resp B/P (MAP) Pulse Ox O2 Delivery O2 Flow Rate FiO2 05/06/19 09:30 18 05/06/19 09:28 75 131/71 05/06/19 06:00 97.6 97 Room Air I&O- Last 24 Hours up to 6 AM 05/06/19 06:00 Intake Total 1650 ml Balance 1650 ml Laboratory Data 24H LABS Laboratory Tests 2 05/05/19 11:26: Bedside Glucose (Misc Panel) 304H 05/05/19 16:23: Bedside Glucose (Misc Panel) 257H 05/05/19 20:28: Bedside Glucose (Misc Panel) 148H 05/06/19 05:26: Bedside Glucose (Misc Panel) 307H 05/06/19 06:24: Nucleated Red Blood Cells % (auto) 0.0 CBC/BMP Laboratory Tests 05/06/19 06:24 Microbiology Microbiology 05/03/19 Urine Culture - Final, Complete Enterobacter Aerogenes HARSHA WELLER MD May 06, 2019 10:42
[2019-05-06] MEDS: KETOROLAC TROMETHAMINE 10 MG TAB PO PRN ×2 (11:54→18:18)
[2019-05-06 14:00] VITALS: BP 125/54
[2019-05-06] MEDS ORDERED: MORPHINE 4 MG/ML 1ML VIAL/SYRINGE (J2270) IV ONE (16:00)
[2019-05-06] MEDS: cefTRIAXone SOD 1 GM in D5W MINI-BAG PLUS 50 ML IV SCH (16:14)
[2019-05-06] MEDS ORDERED: LEVEMIR (INSULIN DETEMIR) 1 UNITS/0.01ML SC SCH (21:00)
[2019-05-06] MEDS: ENOXAPARIN 40 MG/0.4 ML SYRINGE (J1650) SC SCH (21:37)
[2019-05-06 22:00] VITALS: BP 139/65
[2019-05-07] MEDS: traMADol 50 MG TAB PO PRN ×2 (05:38→12:02)
[2019-05-07 06:00] VITALS: BP 140/78
[2019-05-07] MEDS: TIOTROPIUM INHALER/CAPSULE (SPIRIVA) INH SCH (06:20)
[2019-05-07] MEDS: KETOROLAC TROMETHAMINE 10 MG TAB PO PRN ×2 (06:43→13:38)
[2019-05-07] MEDS: HumaLOG INSULIN (NovoLOG) PER UNIT SC SCH ×2 (07:30→12:03)
[2019-05-07] MEDS: ATORVASTATIN 20 MG TAB PO SCH (08:36)
[2019-05-07] MEDS: PANTOPRAZOLE 40MG TAB (PROTONIX) PO SCH (08:36)
[2019-05-07] MEDS: ESCITALOPRAM OXALATE 10 MG TAB (LEXAPRO) PO SCH (08:36)
[2019-05-07] MEDS: VITAMIN D 1,000 INTERNATIONAL UNITS TABLET PO SCH (08:36)
[2019-05-07 08:39] VITALS: BP 123/58
[2019-05-07] MEDS: METOPROLOL TART 25 MG TABLET PO SCH (08:39)
[2019-05-07] MEDS: LORATADINE 10 MG TAB PO SCH (08:39)
[2019-05-07] MEDS: GABAPENTIN 300 MG CAP PO SCH (08:39)
[2019-05-07] MEDS: DOCUSATE SODIUM 100 MG CAP PO SCH (08:40)
[2019-05-07] MEDS: **NOTE PATIENT COMMENT** MISC XX SCH (09:32)
[2019-05-07] MEDS: tiZANidine 4 MG TAB PO PRN (09:33)
[2019-05-07] MEDS: LIDOCAINE 5% (LIDODERM) PATCH TD PRN (09:33)
[2019-05-07] MEDS ORDERED: KEFL250C11 PO (10:58)
--- NOTE | 2019-05-07 10:58 | DS.PDOC ---
Discharge Summary General Date of Admission May 05, 2019 at 12:44 Date of Discharge 05/07/19 Discharge Summary PROCEDURES PERFORMED DURING STAY: [None]. ADMITTING DIAGNOSES: 1. intractable lower back pain 2. chronic T/L compression fractures DISCHARGE DIAGNOSES: 1. intractable lower back pain 2. chronic T/L compression fractures COMPLICATIONS/CHIEF COMPLAINT: Intractable Low Back Pain. HISTORY OF PRESENT ILLNESS: Please refer to for detailed HPI. HOSPITAL COURSE: Patient was admitted and treated for the following conditions: 1. intractable lower back pain - secondary to chronic T/L compression fractures. - recent admission with similar complaints. - seen by orthopedics (no surgical intervention) and pain management at that time. - patient states she was seen by pain mgmt as outpatient, received multiple steroid shots. - pain control prn. - working with PT/OT, patient made progress with daily PT, has been cleared for discharge with home health. - patient advised to follow up with pain management on discharge. 2. UTI - continue Keflex. DISCHARGE MEDICATIONS: Please see below. ALLERGIES: Please see below. PHYSICAL EXAMINATION ON DISCHARGE: VITAL SIGNS: Please see below. GENERAL: AAO x 3, NAD. HEENT: NCAT, anicteric sclera, PERRLA/EOMI NECK: supple, no JVD, no thyromegaly CARDIOVASCULAR EXAMINATION: NS1S2, regular, no murmurs/rubs RESPIRATORY EXAMINATION: CTA b/l, no wheezing, rales, rhonchi. ABDOMINAL EXAMINATION: NT/ND, positive bowel sounds, no masses EXTREMITIES: no cyanosis, clubbing, edema SKIN: warm, no rashes, NEUROLOGICAL EXAMINATION: AAO x 3, no motor/sensory deficits, PSYCHIATRIC EXAMINATION: calm, cooperative, normal affect. LABORATORY DATA: Please see below. IMAGING: none PROGNOSIS: good ACTIVITY: [As tolerated]. DIET: low fat/low cholesterol DISPOSITION: home DISCHARGE INSTRUCTIONS: 1. Please follow up with pain management on discharge. ITEMS TO FOLLOWUP ON ON OUTPATIENT: 1. none DISCHARGE CONDITION: [Stable]. TIME SPENT ON DISCHARGE: Greater than [30] minutes. Vital Signs/I&Os Vital Signs Date Time Temp Pulse Resp B/P (MAP) Pulse Ox O2 Delivery O2 Flow Rate FiO2 05/07/19 08:39 64 123/58 05/07/19 06:28 19 05/07/19 06:00 97.0 95 Room Air I&O- Last 24 Hours up to 6 AM 05/07/19 06:00 Intake Total 2160 ml Balance 2160 ml Laboratory Data Labs 24H Laboratory Tests 2 05/06/19 11:14: Bedside Glucose (Misc Panel) 300H 05/06/19 16:35: Bedside Glucose (Misc Panel) 298H 05/06/19 20:05: Bedside Glucose (Misc Panel) 414H 05/07/19 06:45: Bedside Glucose (Misc Panel) 201H FSBS Laboratory Tests Test 05/06/19 11:14 05/06/19 16:35 05/06/19 20:05 05/07/19 06:45 Range/Units Bedside Glucose (Misc Panel) 300 298 414 201 80-115 MG/DL Microbiology Microbiology 05/03/19 Urine Culture - Final, Complete Enterobacter Aerogenes Discharge Medications Scheduled Atorvastatin Calcium (Atorvastatin Calcium) 40 Mg Tab, 40 MG PO DAILY, (Reported) Calcium Carbonate (Calcium) 600 Mg Tablet, 600 MG PO DAILY, (Reported) Cephalexin (Keflex) 250 Mg Capsule, 250 MG PO QID Cholecalciferol (Vitamin D3) (Vitamin D3) 1,000 Unit Tablet, 1,000 UNITS PO DAILY, (Reported) Empagliflozin (Jardiance) 10 Mg Tab, 10 MG PO DAILY, (Reported) Escitalopram Oxalate (Escitalopram Oxalate) 20 Mg Tablet, 20 MG PO DAILY, (Reported) Fluconazole (Fluconazole) 150 Mg Tablet, 150 MG PO 1XWK, (Reported) MONDAYS Gabapentin (Gabapentin) 300 Mg Capsule, 300 MG PO TID, (Reported) Insulin Glargine,Hum.rec.anlog (Baldemar Sands) 300 Unit/Ml Inj, 60 UNIT SC DAILY, (Reported) Insulin Human Lispro (Humalog) 1 Units/0.01 Ml Inj, 1 DOSE SC AC, (Reported) PER SLIDING SCALE Levothyroxine Sodium (Synthroid) 175 Mcg Tab, 175 MCG PO DAILY, (Reported) Loratadine (Claritin) 10 Mg Cap, 10 MG PO DAILY, (Reported) Metoprolol Tartrate (Metoprolol Tartrate) 25 Mg Tab, 25 MG PO BID, (Reported) Pantoprazole Sodium (Pantoprazole Sodium) 40 Mg Tablet.dr, 40 MG PO DAILY, (Reported) Salmeterol/Fluticasone (Advair 250-50 Diskus) 14 Puff/Inhaler Aerp, 1 PUFF INH BID, (Reported) Tiotropium [place] (Spiriva) 18 Mcg Cap, 18 MCG INH DAILY, (Reported) Scheduled PRN Albuterol Sulfate (Ventolin Hfa) 108 Mcg/Act Aer, 2 PUFFS INH Q4H PRN for SHORTNESS OF BREATH, (Reported) Ipratropium/Albuterol Sulfate (Combivent Respimat 20-100 Mcg) 1 Aer Aer, 1 PUFF INH QID PRN for SHORTNESS OF BREATH, (Reported) Lidocaine (Lidoderm) 5% Adh..patch, 1 PATCH TD DAILY PRN for PAIN, (Reported) APPLY TO LOWER BACK. 12HR ON, 12HR OFF Tizanidine HCl (Tizanidine HCl) 4 Mg Tablet, 4 MG PO Q4H PRN for SPASMS, (Reported) Tramadol HCl (Tramadol HCl) 50 Mg Tablet, 50 MG PO Q6H PRN for PAIN, (Reported) Allergies Coded Allergies: Sulfa (Sulfonamide Antibiotics) (Verified Allergy, Unknown, 01/19/19) amoxicillin (Verified Allergy, Unknown, 01/19/19) clavulanic acid (Verified Allergy, Unknown, 01/19/19) HARSHA WELLER MD May 07, 2019 10:58
== END 2019-05-07 14:05 | disposition home health service (06) | DRG 543 ==
LOC: M ED 11:17 → EDBD 11:17 → M ED INP 11:18 → ENRESERV 16:16 → M MSPAV 16:42 → OBSVTOIN 05-05 12:44
PROVIDERS: ADMIT Internal Medicine; ATTEND Internal Medicine
DX: M48.55XA Collapsed vertebra, not elsewhere classified, thoracolumbar region, initial encounter for fracture (principal); N39.0 Urinary tract infection, site not specified; E11.9 Type 2 diabetes mellitus without complications; J44.9 Chronic obstructive pulmonary disease, unspecified; G47.33 Obstructive sleep apnea (adult) (pediatric); K21.9 Gastro-esophageal reflux disease without esophagitis; E03.9 Hypothyroidism, unspecified; E78.5 Hyperlipidemia, unspecified; B96.89 Other specified bacterial agents as the cause of diseases classified elsewhere; I10 Essential (primary) hypertension; I25.10 Atherosclerotic heart disease of native coronary artery without angina pectoris; Z88.2 Allergy status to sulfonamides; Z88.0 Allergy status to penicillin; Z88.8 Allergy status to other drugs, medicaments and biological substances; Z79.4 Long term (current) use of insulin; Z79.899 Other long term (current) drug therapy

== ENCOUNTER → 2019-07-22 | Outpatient (CLI) | payer MEDICARE ==
[~2019-07-22] MED LIST changes: +CALC600T60 PO; +ESCI20TA PO; +KEFL250C11 PO; +VITAD1000T PO
== END ==
LOC: M LRY 10:54
PROVIDERS: ATTEND Internal Medicine Endocrinology, Diabetes & Metabolism
DX: E55.9 Vitamin D deficiency, unspecified (principal); Z79.899 Other long term (current) drug therapy

== ENCOUNTER → 2020-01-31 | Outpatient (CLI) | payer MEDICARE ==
[~2020-01-31] MED LIST changes: -CALC600T5 PO; +CALC600T61 PO; +D31000TA2 PO; +PANT40TA29 PO; -PANT40TA3 PO; -VITAD1000T PO
== END ==
LOC: M LABSMTC 11:43
PROVIDERS: ATTEND Family Medicine
DX: Z20.828 Contact with and (suspected) exposure to other viral communicable diseases (principal)

== ENCOUNTER → 2020-04-19 | Outpatient (CLI) | payer MEDICARE ==
[~2020-04-19] MED LIST changes: -ESCI20TA PO; +ESCI20TA16 PO; +GABA-282 PO; -GABA-843 PO; -MONT10TA4 PO; +MONT5TAB2 PO
--- NOTE | 2020-04-19 12:01 | REP ---
INDICATION: SOB AND COUGH, NICOTINE DEPENDENCE. COMPARISON: Comparison chest x-ray May 17, 2018. Prior T-spine radiographs are reviewed from March 26, 2019. TECHNIQUE: Two views.. FINDINGS: The lungs are somewhat hyperinflated as before but free of infiltrate. Pleural angles are sharp. Heart is not enlarged. Pulmonary vasculature is not increased. There is a mild dextroconvex curvature in the lower thoracic spine and there are degenerative changes. Osteoporotic wedging is seen in 3 of the lower thoracic vertebrae. This is most pronounced at the T12 where there is nearly complete loss of anterior vertebral body height. This is unchanged from comparison radiograph March 26, 2019. However, there is mild interval anterior wedging at T11 and T10 new from that March 26, 2019 study. There is a granulomatous calcification overlying the T9 vertebral body. IMPRESSION: No active cardiopulmonary disease. Osteoporotic wedge compression deformities in the lower thoracic spine, 2 of which appear to be new when compared with the March 26, 2019 prior T-spine radiographs.. <Electronically signed by Eyad Parham > 04/19/20 [id number]
== END ==
LOC: M WUC 11:31
PROVIDERS: ATTEND Physician Assistant
DX: R06.02 Shortness of breath (principal); R05 Cough; F17.210 Nicotine dependence, cigarettes, uncomplicated; M80.08XA Age-related osteoporosis with current pathological fracture, vertebra(e), initial encounter for fracture

== ENCOUNTER → 2020-07-02 | Outpatient (CLI) | payer MEDICARE ==
[~2020-07-02] MED LIST changes: -LISI-538 PO; +LISI10TA22 PO; -LISI10TA4 PO; +LISI20TA33 PO; +MONT10TA10 PO; -MONT5TAB2 PO
--- NOTE | 2020-07-02 17:37 | REP ---
INDICATION: ABNORMAL FINDING OF LUNG FIELD R91.8. Patient relates receiving COVID vaccination in the right arm 1st and 2nd dose last dated 12 June 2020. COMPARISON: Comparison chest CT study April 27, 2010.. TECHNIQUE: Forty-five minutes following the intravenous injection of a 16.68 mCi dose of F-18 FDG, three-dimensional PET scintigraphy is acquired from the skull base to the proximal thighs. Triplanar noncontrast CT scanning is acquired through the same anatomic range for attenuation correction, and image registration with scan parameters optimized to minimize radiation exposure to the patient. PET scintigraphy and CT datasets were fused and displayed on a workstation with multiplanar and projection display capability. FINDINGS: Head and neck soft tissues are unremarkable. There is mildly hypermetabolic caroline uptake in 2 sites, 1 in the upper arm and the other in a right axillary lymph node. These each measure 8 mm in short axis dimension. Maximum standard uptake value is 2.81 in the lymph node adjacent to the posterior musculature of the upper arm. Maximum standard uptake value in the axillary node is 6.67. These are ipsilateral to the recent COVID vaccination and are consistent with reactive hypertrophy. No abnormal breast soft tissue uptake is seen a on either side. There is no abnormal hilar or mediastinal caroline hypermetabolic uptake. On lung window settings, the recently identified 8 mm spiculated right lower lobe nodule is not clearly seen. It appears to have improved. There is no abnormal hypermetabolic uptake where prior CT study showed this nodule. There is some dependent subpleural opacity right lower lobe greater than left lower lobe, in the posterior dependent subpleural regions of the lower lobes bilaterally. FDG uptake here is below the hypermetabolic range, SUV 2.25. This is most likely inflammatory change versus atelectasis. No suspicious pulmonary parenchymal hypermetabolic uptake is seen. In the abdomen and pelvis, normal hepatic, splenic, gastrointestinal, and genitourinary FDG accumulation is seen. No abnormal hypermetabolic uptake is appreciated. IMPRESSION: There is mildly increased uptake in 2 reactive lymph nodes 1 in the right axilla and the other in the upper arm ipsilateral to recent COVID vaccine. This is consistent with reactive lymph node uptake. There is evidence of a subtle infiltrate in the right lower lobe and, to a lesser extent, in the left lower lobe. The recently identified spiculated right lower lobe nodule appears to have regressed. No suspicious hypermetabolic uptake is seen in the chest. CT follow-up recommended <Electronically signed by Eyad Parham > 07/02/20 [id number]
== END ==
LOC: M PLARAD 07:29
PROVIDERS: ATTEND Internal Medicine Pulmonary Disease
DX: R91.8 Other nonspecific abnormal finding of lung field (principal)
CPT/HCPCS: 78815; A9552

== ENCOUNTER → 2020-10-30 | Outpatient (REF) | payer MEDICARE ==
[~2020-10-30] MED LIST changes: +OMEP40CA4 PO; -OMEP40CA97 PO
[2020-10-30 18:19] LABS: CREATININE, URINE 58.6 MG/DL; MALB URINE SIEMENS 9.8 MG/L; MAU/CREAT RATIO 16.7 MCG/MG (0.0-30.0)
== END ==
LOC: M LAB REF 17:23
PROVIDERS: ATTEND Nurse Practitioner Family
DX: E10.65 Type 1 diabetes mellitus with hyperglycemia (principal)

== ENCOUNTER → 2021-01-22 | Outpatient (REF) | payer MEDICARE | LOC: M LAB REF 15:43 | PROVIDERS: ATTEND Internal Medicine Pulmonary Disease | DX: J44.9 Chronic obstructive pulmonary disease, unspecified (principal) ==

== ENCOUNTER → 2021-05-29 | Outpatient (CLI) | payer MEDICARE ==
[~2021-05-29] MED LIST changes: -D31000TA2 PO; -FLUC150T PO; +FLUC150T9 PO; -MONT10TA10 PO; +MONT10TA97 PO; +TIZA10TA PO; -TIZA4TAB4 PO; +VITA100093 PO
== END ==
LOC: M WHC 07:27
PROVIDERS: ATTEND Internal Medicine Endocrinology, Diabetes & Metabolism
DX: M81.0 Age-related osteoporosis without current pathological fracture (principal)

== ENCOUNTER → 2021-06-11 | Outpatient (CLI) | payer MEDICARE ==
[2021-06-11 13:13] LABS: CALCIUM LEVEL 9.4 MG/DL (8.8-10.2); GLOMERULAR FILTRATION RATE 58.5 (>45); POTASSIUM SERUM 4.5 MEQ/L (3.5-5.1)
[2021-06-11 13:24] LABS: TOTAL 25(OH) VITAMIN D 27.4 NG/ML (30.0-100.0)
== END ==
LOC: M WUC 10:27
PROVIDERS: ATTEND Nurse Practitioner Family
DX: M81.0 Age-related osteoporosis without current pathological fracture (principal); E55.9 Vitamin D deficiency, unspecified

== ENCOUNTER → 2021-07-16 | Outpatient (CLI) | payer MEDICARE | LOC: M RAD 09:00 | PROVIDERS: ATTEND Internal Medicine Pulmonary Disease | DX: R91.1 Solitary pulmonary nodule (principal); J84.10 Pulmonary fibrosis, unspecified; S22.078A Other fracture of T9-T10 vertebra, initial encounter for closed fracture; X58.XXXA Exposure to other specified factors, initial encounter; Y92.89 Other specified places as the place of occurrence of the external cause ==

== ENCOUNTER → 2021-09-13 | Outpatient (CLI) | payer MEDICARE ==
[2021-09-13 12:57] LABS: ALBUMIN 3.5 GM/DL (3.2-5.2); ALT/SGPT 22 U/L (12-78); BILIRUBIN,TOTAL 0.3 MG/DL (0.2-1.0); BLOOD UREA NITROGEN 16 MG/DL (7-18); CALCIUM LEVEL 9.2 MG/DL (8.8-10.2); CARBON DIOXIDE LEVEL 28 MEQ/L (21-32); CHLORIDE LEVEL 109 MEQ/L (98-107); CREATININE FOR GFR 0.84 MG/DL (0.55-1.30); GLOMERULAR FILTRATION RATE > 60.0 (>45); GLUCOSE, FASTING 107 MG/DL (70-100); MAGNESIUM LEVEL 2.2 MG/DL (1.8-2.4); POTASSIUM SERUM 4.7 MEQ/L (3.5-5.1); SODIUM LEVEL 138 MEQ/L (136-145); THYROID STIMULATING HORMONE 0.598 uIU/ML (0.358-3.740); TOTAL PROTEIN 6.3 GM/DL (6.4-8.2)
[2021-09-13 13:02] LABS: TOTAL 25(OH) VITAMIN D 41.3 NG/ML (30.0-100.0)
== END ==
LOC: M LAB 11:01
PROVIDERS: ATTEND Physician Assistant
DX: G47.62 Sleep related leg cramps (principal); M79.10 Myalgia, unspecified site; E03.9 Hypothyroidism, unspecified; E83.51 Hypocalcemia

== ENCOUNTER → 2021-11-10 | Outpatient (CLI) | payer MEDICARE ==
[~2021-11-10] MED LIST changes: +ADV500INH INH; +LEVO2TA PO; +LEXA1TAB PO
== END ==
LOC: M LABSMTC 10:25
PROVIDERS: ATTEND Anesthesiology
DX: Z01.812 Encounter for preprocedural laboratory examination (principal)

== ENCOUNTER 2021-11-13 06:43 | Day surgery (SDC) | payer MEDICARE ==
[~2021-11-13] VITALS: Ht 172.7 cm; Wt 96.6 kg
[~2021-11-13 06:43] MED LIST changes: +NS 1,000 ML IV ONE
[2021-11-13] MEDS ORDERED: propofoL 200 MG/20 ML VIAL As Ordered ONE ×2 (07:00→07:01)
[2021-11-13] MEDS ORDERED: LIDOCAINE 2% 100MG/5ML SDV (FOR ANES.) As Ordered ONE (07:01)
[2021-11-13] MEDS ORDERED: fentaNYL 100 MCG/2 ML INJECTION As Ordered ONE (07:34)
[2021-11-13] MEDS ORDERED: ePHEDrine SULFATE 25 MG/5 ML(5MG/ML) SYRINGE As Ordered ONE (07:58)
[2021-11-13 08:30] VITALS: BP 117/66
== END 2021-11-13 08:41 | disposition home or self-care (01) ==
LOC: M OPP 06:43
PROVIDERS: ATTEND Internal Medicine Gastroenterology
DX: D12.6 Benign neoplasm of colon, unspecified (principal); K57.30 Diverticulosis of large intestine without perforation or abscess without bleeding; K64.0 First degree hemorrhoids; K22.70 Barrett's esophagus without dysplasia; B37.81 Candidal esophagitis; R13.10 Dysphagia, unspecified; E10.9 Type 1 diabetes mellitus without complications; E78.00 Pure hypercholesterolemia, unspecified; I10 Essential (primary) hypertension; J44.9 Chronic obstructive pulmonary disease, unspecified; F41.9 Anxiety disorder, unspecified; F17.200 Nicotine dependence, unspecified, uncomplicated; Z79.2 Long term (current) use of antibiotics; Z79.4 Long term (current) use of insulin; Z79.51 Long term (current) use of inhaled steroids; Z79.891 Long term (current) use of opiate analgesic; Z79.899 Other long term (current) drug therapy; Z88.1 Allergy status to other antibiotic agents; Z88.2 Allergy status to sulfonamides; Z88.8 Allergy status to other drugs, medicaments and biological substances; Z86.73 Personal history of transient ischemic attack (TIA), and cerebral infarction without residual deficits
CPT/HCPCS: 43239; 45385; 88305; J3010

== ENCOUNTER → 2022-02-05 | Outpatient (CLI) | payer MEDICARE ==
[~2022-02-05] MED LIST changes: -NS 1,000 ML IV ONE
== END ==
LOC: M RAD 10:03
PROVIDERS: ATTEND Internal Medicine Pulmonary Disease
DX: J43.9 Emphysema, unspecified (principal)

== ENCOUNTER 2022-03-10 11:03 | Inpatient (IN) | payer MEDICARE ==
[~2022-03-10] VITALS: Ht 175.3 cm; Wt 96.0 kg
[2022-03-10 11:54] LABS: BASO % 0.3 % (0.0-1.0); HEMATOCRIT 34.7 % (36.0-47.0); HEMOGLOBIN 11.7 g/dl (12.0-15.5); LYMPH # 0.7 10^3/uL (1.5-5.0); LYMPH % 9.2 % (24.0-44.0); MEAN CORPUSCULAR HEMOGLOBIN 31.2 pg (27.0-33.0); MEAN CORPUSCULAR HGB CONC 33.7 g/dl (32.0-36.5); MEAN CORPUSCULAR VOLUME 92.5 fl (80.0-96.0); MONO # 0.8 10^3/uL (0.0-0.8); MONO % 10.1 % (2.0-8.0); NEUTROPHILS # 6.2 10^3/uL (1.5-8.5); PLATELET COUNT, AUTOMATED 191 10^3/uL (150-450); RED BLOOD COUNT 3.75 10^6/uL (4.00-5.40); WHITE BLOOD COUNT 7.8 10^3/uL (4.0-10.0)
[2022-03-10] MEDS ORDERED: ISOVUE-370 76% 100ML VIAL As Ordered ONE (12:19)
[2022-03-10] MEDS ORDERED: NS 500 ML IV ONE (12:20)
[2022-03-10 12:22] LABS: CK-MB VALUE MASS 2.9 NG/ML (<3.6)
[2022-03-10 12:24] LABS: BILIRUBIN,DIRECT 0.1 MG/DL (<0.4); CPK CREATINE PHOSPHOKINASE 216 U/L (34-145); MB/CK RELATIVE INDEX 1.34 (< OR =4)
[2022-03-10 12:26] LABS: THYROID STIMULATING HORMONE 0.184 uIU/ML (0.55-4.78); THYROXINE (T4) 13.8 UG/DL (4.5-10.9)
[2022-03-10 12:33] LABS: ALBUMIN 3.1 G/DL (3.2-5.2); ALKALINE PHOSPHATASE 67 U/L (46-116); ALT/SGPT 16 U/L (7.0-40); AST/SGOT 17 U/L (<34); BILIRUBIN,TOTAL 0.3 MG/DL (0.3-1.2); BLOOD UREA NITROGEN 22 MG/DL (9-23); CALCIUM LEVEL 8.1 MG/DL (8.3-10.6); CARBON DIOXIDE LEVEL 20 MMOL/L (20-31); CHLORIDE LEVEL 102 MMOL/L (98-107); CREATININE FOR GFR 0.71 MG/DL (0.55-1.30); GLOMERULAR FILTRATION RATE > 60.0 (>39); GLUCOSE, FASTING 423 MG/DL (74-106); POTASSIUM SERUM 4.4 MMOL/L (3.5-5.1); SODIUM LEVEL 134 MMOL/L (136-145); TOTAL PROTEIN 5.8 G/DL (5.7-8.2)
[2022-03-10] MEDS ORDERED: HumuLIN R (REGULAR) INSULIN (NovoLIN R) **100U/ML** PER UNIT IV ONE (13:00)
[2022-03-10 13:20] LABS: MB/CK RELATIVE INDEX 0.99 (< OR =4)
[2022-03-10] MEDS ORDERED: SPIR12.9 INH (14:24)
[2022-03-10] MEDS ORDERED: BUPR300T92 PO (14:24)
[2022-03-10] MEDS ORDERED: LEXA1TAB2 PO (14:24)
[2022-03-10] MEDS ORDERED: HOME MED LIST COMPLETE! XX SCH (14:25)
[2022-03-10] MEDS ORDERED: ACETAMINOPHEN TAB 650MG DOSE (2X325MG) PO PRN (15:05)
[2022-03-10] MEDS ORDERED: GLUCOSE 4GM CHEW TABLET PO PRN (15:10)
[2022-03-10] MEDS ORDERED: traMADol 50 MG TAB PO PRN (15:10)
[2022-03-10] MEDS ORDERED: tiZANidine 4 MG TAB PO PRN (15:10)
[2022-03-10] MEDS ORDERED: COMBIVENT RESPIMAT 100-20MCG INHALER 4GM INH PRN (15:10)
[2022-03-10] MEDS ORDERED: LIDOCAINE 5% (LIDODERM) PATCH TD PRN (15:10)
[2022-03-10] MEDS ORDERED: INSULIN LISPRO (NovoLOG) PER UNIT SC SCH (15:10)
[2022-03-10] MEDS ORDERED: ALBUTEROL 90 MCG/ACT 8GM HFA INHALER INH PRN ×2 (15:10→15:40)
[2022-03-10] MEDS ORDERED: GLUCAGON INJ 1MG VIAL SC PRN (15:10)
[2022-03-10] MEDS ORDERED: DEXTROSE 50% 50ML SYRINGE IV PRN (15:10)
[2022-03-10] MEDS: IPRATROPIUM 0.5MG/ALBUTEROL 2.5MG INH SOL UD 3ML (DUONEB) NEB SCH ×2 (15:34→20:00)
[2022-03-10] MEDS: NICOTINE 14 MG/24 HR TRANSDERMAL TD SCH (15:34)
[2022-03-10 15:35] VITALS: O2SAT 92
[2022-03-10] MEDS: ENOXAPARIN 40MG/0.4ML SYRINGE (J1650 PER 10MG) SC SCH (15:36)
[2022-03-10] MEDS: methylPREDNISolone 125MG 2ML VIAL IV SCH (15:37)
[2022-03-10 17:01] LABS: HEMOGLOBIN A1c 10.2 % (4.0-6.0)
[2022-03-10] MEDS: AZITHROMYCIN 250MG TABLET PO SCH (17:58)
[2022-03-10] MEDS: INSULIN LISPRO (NovoLOG) PER UNIT SC SCH (18:00)
[2022-03-10] MEDS: ADVAIR HFA 230/21MCG INHALER INH SCH (20:12)
[2022-03-10] MEDS: LEVEMIR (INSULIN DETEMIR) 1 UNITS/0.01ML SC SCH (21:00)
[2022-03-10] MEDS: OSELTAMIVIR PHOSPHATE 75 MG CAP (TAMIFLU) PO SCH (21:14)
[2022-03-10] MEDS: PANTOPRAZOLE 40MG TAB (PROTONIX) PO SCH (21:14)
[2022-03-10] MEDS: METOPROLOL TART 25 MG TABLET PO SCH (21:14)
[2022-03-11] MEDS: INSULIN LISPRO (NovoLOG) PER UNIT SC SCH ×5 (00:04→21:46)
[2022-03-11] MEDS: IPRATROPIUM 0.5MG/ALBUTEROL 2.5MG INH SOL UD 3ML (DUONEB) NEB SCH ×5 (01:34→19:19)
[2022-03-11] MEDS: LEVOTHYROXINE 150MCG TABLET (0.15MG) PO SCH (06:51)
[2022-03-11] MEDS: PANTOPRAZOLE 40MG TAB (PROTONIX) PO SCH ×2 (08:02→21:46)
[2022-03-11] MEDS: buPROPion **XL** TABLET 150MG (WELLBUTRIN XL) PO SCH (08:02)
[2022-03-11] MEDS: methylPREDNISolone 125MG 2ML VIAL IV SCH (08:02)
[2022-03-11] MEDS: OSELTAMIVIR PHOSPHATE 75 MG CAP (TAMIFLU) PO SCH (08:02)
[2022-03-11] MEDS: VITAMIN D 1,000 INTERNATIONAL UNITS TABLET PO SCH (08:02)
[2022-03-11] MEDS: ESCITALOPRAM OXALATE 10 MG TAB (LEXAPRO) PO SCH (08:03)
[2022-03-11] MEDS: ATORVASTATIN 20 MG TAB PO SCH (08:03)
[2022-03-11] MEDS: AZITHROMYCIN 250MG TABLET PO SCH (08:03)
[2022-03-11] MEDS: NICOTINE 14 MG/24 HR TRANSDERMAL TD SCH (08:03)
[2022-03-11] MEDS: LEVEMIR (INSULIN DETEMIR) 1 UNITS/0.01ML SC SCH ×2 (08:03→21:47)
[2022-03-11] MEDS: ENOXAPARIN 40MG/0.4ML SYRINGE (J1650 PER 10MG) SC SCH (08:04)
[2022-03-11] MEDS: METOPROLOL TART 25 MG TABLET PO SCH ×2 (08:05→21:46)
[2022-03-11 08:19] LABS: BASO % 0.1 % (0.0-1.0); HEMATOCRIT 36.3 % (36.0-47.0); HEMOGLOBIN 12.3 g/dl (12.0-15.5); LYMPH # 1.2 10^3/uL (1.5-5.0); LYMPH % 10.7 % (24.0-44.0); MEAN CORPUSCULAR HEMOGLOBIN 31.7 pg (27.0-33.0); MEAN CORPUSCULAR HGB CONC 33.9 g/dl (32.0-36.5); MEAN CORPUSCULAR VOLUME 93.6 fl (80.0-96.0); MONO % 8.8 % (2.0-8.0); NEUTROPHILS # 9.1 10^3/uL (1.5-8.5); PLATELET COUNT, AUTOMATED 226 10^3/uL (150-450); RED BLOOD COUNT 3.88 10^6/uL (4.00-5.40); WHITE BLOOD COUNT 11.4 10^3/uL (4.0-10.0)
[2022-03-11 08:48] LABS: BLOOD UREA NITROGEN 19 MG/DL (9-23); CALCIUM LEVEL 8.2 MG/DL (8.3-10.6); CARBON DIOXIDE LEVEL 24 MMOL/L (20-31); CHLORIDE LEVEL 105 MMOL/L (98-107); CREATININE FOR GFR 0.61 MG/DL (0.55-1.30); GLOMERULAR FILTRATION RATE > 60.0 (>39); GLUCOSE, FASTING 229 MG/DL (74-106); POTASSIUM SERUM 4.3 MMOL/L (3.5-5.1); SODIUM LEVEL 137 MMOL/L (136-145)
[2022-03-11 09:00] VITALS: BP 148/73
[2022-03-11] MEDS: ADVAIR HFA 230/21MCG INHALER INH SCH ×2 (09:23→19:19)
[2022-03-11] MEDS: TIOTROPIUM INHALER/CAPSULE (SPIRIVA) INH SCH (09:23)
[2022-03-11] MEDS: guaiFENesin ER 600 MG TAB PO SCH ×2 (09:55→21:46)
[2022-03-11] MEDS: LORATADINE 10 MG TAB PO SCH (09:55)
[2022-03-11] MEDS ORDERED: VANCOMYCIN HCL 1,000 MG, VIAL MATE ADAPTER 1 EACH in NS 250 ML IV SCH (12:55)
[2022-03-11 12:59] LABS: ERYTHROCYTE SEDIMENTATION RATE 33 mm/hr (0-30)
[2022-03-11] MEDS ORDERED: VANCOMYCIN HCL 1,000 MG, VIAL MATE ADAPTER 1 EACH in D5W 250 ML IV ONE (15:00)
[2022-03-11] MEDS: methylPREDNISolone 40MG 1ML VIAL IV SCH (16:00)
[2022-03-11] MEDS ORDERED: VANCOMYCIN HCL 750 MG, VIAL MATE ADAPTER 1 EACH in D5W 250 ML IV ONE (16:00)
[2022-03-11] MEDS ORDERED: INSULIN LISPRO (NovoLOG) PER UNIT SC SCH (17:30)
[2022-03-11 17:32] VITALS: BP 126/66
[2022-03-11 20:20] VITALS: BP 133/61
[2022-03-12] MEDS: methylPREDNISolone 40MG 1ML VIAL IV SCH ×3 (00:31→16:20)
[2022-03-12] MEDS: VANCOMYCIN HCL 750 MG, VIAL MATE ADAPTER 1 EACH in D5W 250 ML IV SCH ×2 (00:31→13:08)
[2022-03-12] MEDS: OSELTAMIVIR PHOSPHATE 75 MG CAP (TAMIFLU) PO SCH ×3 (00:31→21:23)
[2022-03-12] MEDS: VANCOMYCIN HCL 500 MG in D5W MINI-BAG PLUS 100 ML IV SCH ×2 (01:52→14:21)
[2022-03-12] MEDS: IPRATROPIUM 0.5MG/ALBUTEROL 2.5MG INH SOL UD 3ML (DUONEB) NEB SCH ×4 (02:00→19:27)
[2022-03-12 04:48] VITALS: O2SAT 89
[2022-03-12 05:41] VITALS: BP 136/66
[2022-03-12] MEDS: LEVOTHYROXINE 150MCG TABLET (0.15MG) PO SCH (05:53)
[2022-03-12 05:55] LABS: BASO % 0.1 % (0.0-1.0); HEMATOCRIT 37.4 % (36.0-47.0); HEMOGLOBIN 12.3 g/dl (12.0-15.5); LYMPH # 0.9 10^3/uL (1.5-5.0); MEAN CORPUSCULAR HEMOGLOBIN 31.1 pg (27.0-33.0); MEAN CORPUSCULAR HGB CONC 32.9 g/dl (32.0-36.5); MEAN CORPUSCULAR VOLUME 94.4 fl (80.0-96.0); MONO # 0.7 10^3/uL (0.0-0.8); MONO % 5.5 % (2.0-8.0); NEUTROPHILS # 10.2 10^3/uL (1.5-8.5); PLATELET COUNT, AUTOMATED 228 10^3/uL (150-450); RED BLOOD COUNT 3.96 10^6/uL (4.00-5.40); WHITE BLOOD COUNT 11.8 10^3/uL (4.0-10.0)
[2022-03-12 06:17] LABS: BLOOD UREA NITROGEN 19 MG/DL (9-23); CALCIUM LEVEL 8.2 MG/DL (8.3-10.6); CARBON DIOXIDE LEVEL 26 MMOL/L (20-31); CHLORIDE LEVEL 104 MMOL/L (98-107); CREATININE FOR GFR 0.61 MG/DL (0.55-1.30); GLOMERULAR FILTRATION RATE > 60.0 (>39); GLUCOSE, FASTING 225 MG/DL (74-106); SODIUM LEVEL 137 MMOL/L (136-145)
[2022-03-12] MEDS: TIOTROPIUM INHALER/CAPSULE (SPIRIVA) INH SCH (07:44)
[2022-03-12] MEDS: ADVAIR HFA 230/21MCG INHALER INH SCH ×2 (07:45→19:27)
[2022-03-12] MEDS: ENOXAPARIN 40MG/0.4ML SYRINGE (J1650 PER 10MG) SC SCH (09:08)
[2022-03-12] MEDS: LEVEMIR (INSULIN DETEMIR) 1 UNITS/0.01ML SC SCH ×2 (09:09→21:24)
[2022-03-12] MEDS: INSULIN LISPRO (NovoLOG) PER UNIT SC SCH ×4 (09:09→21:24)
[2022-03-12] MEDS: guaiFENesin ER 600 MG TAB PO SCH ×2 (09:10→21:23)
[2022-03-12] MEDS: VITAMIN D 1,000 INTERNATIONAL UNITS TABLET PO SCH (09:10)
[2022-03-12] MEDS: ATORVASTATIN 20 MG TAB PO SCH (09:10)
[2022-03-12] MEDS: buPROPion **XL** TABLET 150MG (WELLBUTRIN XL) PO SCH (09:10)
[2022-03-12] MEDS: LORATADINE 10 MG TAB PO SCH (09:10)
[2022-03-12] MEDS: NICOTINE 14 MG/24 HR TRANSDERMAL TD SCH (09:10)
[2022-03-12] MEDS: AZITHROMYCIN 250MG TABLET PO SCH (09:10)
[2022-03-12] MEDS: METOPROLOL TART 25 MG TABLET PO SCH ×2 (09:11→21:23)
[2022-03-12] MEDS: ESCITALOPRAM OXALATE 10 MG TAB (LEXAPRO) PO SCH (09:11)
[2022-03-12] MEDS: PANTOPRAZOLE 40MG TAB (PROTONIX) PO SCH ×2 (09:11→21:23)
[2022-03-12] MEDS: ASPIRIN 81MG ENTERIC TABLET PO SCH (12:12)
[2022-03-12 14:00] VITALS: BP 133/65
[2022-03-12 21:10] VITALS: BP 133/65
[2022-03-13] MEDS: methylPREDNISolone 40MG 1ML VIAL IV SCH ×2 (00:32→08:12)
[2022-03-13] MEDS: VANCOMYCIN HCL 750 MG, VIAL MATE ADAPTER 1 EACH in D5W 250 ML IV SCH (00:32)
[2022-03-13 01:10] VITALS: O2SAT 92
[2022-03-13] MEDS: VANCOMYCIN HCL 500 MG in D5W MINI-BAG PLUS 100 ML IV SCH (01:53)
[2022-03-13] MEDS: IPRATROPIUM 0.5MG/ALBUTEROL 2.5MG INH SOL UD 3ML (DUONEB) NEB SCH ×2 (02:00→07:32)
[2022-03-13 05:34] VITALS: BP 147/72
[2022-03-13 05:47] LABS: BASO % 0.2 % (0.0-1.0); HEMATOCRIT 38.2 % (36.0-47.0); HEMOGLOBIN 12.7 g/dl (12.0-15.5); LYMPH # 1.2 10^3/uL (1.5-5.0); LYMPH % 9.4 % (24.0-44.0); MEAN CORPUSCULAR HGB CONC 33.2 g/dl (32.0-36.5); MEAN CORPUSCULAR VOLUME 93.2 fl (80.0-96.0); MONO # 0.6 10^3/uL (0.0-0.8); NEUTROPHILS # 10.4 10^3/uL (1.5-8.5); NEUTROPHILS % 84.8 % (36.0-66.0); PLATELET COUNT, AUTOMATED 214 10^3/uL (150-450); WHITE BLOOD COUNT 12.3 10^3/uL (4.0-10.0)
[2022-03-13] MEDS: LEVOTHYROXINE 150MCG TABLET (0.15MG) PO SCH (05:47)
[2022-03-13 06:21] LABS: BLOOD UREA NITROGEN 17 MG/DL (9-23); C REACTIVE PROTEIN QUANTITATIV < 0.40 MG/DL (<1.0); CALCIUM LEVEL 8.2 MG/DL (8.3-10.6); CARBON DIOXIDE LEVEL 27 MMOL/L (20-31); CHLORIDE LEVEL 102 MMOL/L (98-107); CREATININE FOR GFR 0.61 MG/DL (0.55-1.30); GLOMERULAR FILTRATION RATE > 60.0 (>39); GLUCOSE, FASTING 318 MG/DL (74-106); POTASSIUM SERUM 4.7 MMOL/L (3.5-5.1); SODIUM LEVEL 135 MMOL/L (136-145)
[2022-03-13] MEDS: ADVAIR HFA 230/21MCG INHALER INH SCH (07:32)
[2022-03-13] MEDS: TIOTROPIUM INHALER/CAPSULE (SPIRIVA) INH SCH (07:32)
[2022-03-13] MEDS ORDERED: AZIT-12 PO (08:08)
[2022-03-13] MEDS ORDERED: ASPI81TAEC PO (08:08)
[2022-03-13] MEDS ORDERED: PRED10TA2 PO (08:08)
[2022-03-13] MEDS ORDERED: OSEL75CA2 PO (08:08)
[2022-03-13] MEDS: ENOXAPARIN 40MG/0.4ML SYRINGE (J1650 PER 10MG) SC SCH (08:12)
[2022-03-13] MEDS: LEVEMIR (INSULIN DETEMIR) 1 UNITS/0.01ML SC SCH (08:12)
[2022-03-13] MEDS: INSULIN LISPRO (NovoLOG) PER UNIT SC SCH ×2 (08:12→12:28)
[2022-03-13] MEDS: NICOTINE 14 MG/24 HR TRANSDERMAL TD SCH (08:13)
[2022-03-13] MEDS: ASPIRIN 81MG ENTERIC TABLET PO SCH (08:13)
[2022-03-13] MEDS: buPROPion **XL** TABLET 150MG (WELLBUTRIN XL) PO SCH (08:13)
[2022-03-13 08:14] VITALS: BP 132/69
[2022-03-13] MEDS: guaiFENesin ER 600 MG TAB PO SCH (08:14)
[2022-03-13] MEDS: ATORVASTATIN 20 MG TAB PO SCH (08:14)
[2022-03-13] MEDS: ESCITALOPRAM OXALATE 10 MG TAB (LEXAPRO) PO SCH (08:14)
[2022-03-13] MEDS: METOPROLOL TART 25 MG TABLET PO SCH (08:14)
[2022-03-13] MEDS: VITAMIN D 1,000 INTERNATIONAL UNITS TABLET PO SCH (08:14)
[2022-03-13] MEDS: LORATADINE 10 MG TAB PO SCH (08:15)
[2022-03-13] MEDS: OSELTAMIVIR PHOSPHATE 75 MG CAP (TAMIFLU) PO SCH (08:15)
[2022-03-13] MEDS: PANTOPRAZOLE 40MG TAB (PROTONIX) PO SCH (08:15)
== END 2022-03-13 14:14 | disposition home or self-care (01) | DRG 193 ==
LOC: EDBD 11:03 → M ED 11:03 → M ED INP 14:45 → M MSPAV 03-11 17:19
PROVIDERS: ADMIT Internal Medicine; ATTEND Internal Medicine
DX: J09.X2 Influenza due to identified novel influenza A virus with other respiratory manifestations (principal); J96.01 Acute respiratory failure with hypoxia; J45.901 Unspecified asthma with (acute) exacerbation; J44.1 Chronic obstructive pulmonary disease with (acute) exacerbation; E11.65 Type 2 diabetes mellitus with hyperglycemia; G47.33 Obstructive sleep apnea (adult) (pediatric); E78.5 Hyperlipidemia, unspecified; F17.210 Nicotine dependence, cigarettes, uncomplicated; I10 Essential (primary) hypertension; E03.9 Hypothyroidism, unspecified; I25.10 Atherosclerotic heart disease of native coronary artery without angina pectoris; N39.3 Stress incontinence (female) (male); F32.A Depression, unspecified; F41.9 Anxiety disorder, unspecified; K21.9 Gastro-esophageal reflux disease without esophagitis; Z20.822 Contact with and (suspected) exposure to COVID-19; Z90.49 Acquired absence of other specified parts of digestive tract; Z90.79 Acquired absence of other genital organ(s); Z86.73 Personal history of transient ischemic attack (TIA), and cerebral infarction without residual deficits; Z71.6 Tobacco abuse counseling; Z66 Do not resuscitate; Z79.890 Hormone replacement therapy; Z79.4 Long term (current) use of insulin; Z79.899 Other long term (current) drug therapy; Z88.0 Allergy status to penicillin; Z88.1 Allergy status to other antibiotic agents; Z88.8 Allergy status to other drugs, medicaments and biological substances

== ENCOUNTER → 2022-06-19 | Outpatient (CLI) | payer MEDICARE ==
[~2022-06-19] MED LIST changes: +ASPI81TAEC PO; +BUPR300T92 PO; +LEXA1TAB2 PO; +OSEL75CA2 PO; +SPIR12.9 INH
[2022-06-19 15:18] LABS: BLOOD UREA NITROGEN 9 MG/DL (9-23); CALCIUM LEVEL 8.8 MG/DL (8.3-10.6); CARBON DIOXIDE LEVEL 26 MMOL/L (20-31); CHLORIDE LEVEL 107 MMOL/L (98-107); CREATININE FOR GFR 0.72 MG/DL (0.55-1.30); GLOMERULAR FILTRATION RATE > 60.0 (>39); GLUCOSE, FASTING 113 MG/DL (74-106); POTASSIUM SERUM 4.3 MMOL/L (3.5-5.1); SODIUM LEVEL 140 MMOL/L (136-145)
[2022-06-19 15:20] LABS: THYROID STIMULATING HORMONE 0.449 uIU/ML (0.55-4.78)
== END ==
LOC: M LAB 13:43
PROVIDERS: ATTEND Internal Medicine Endocrinology, Diabetes & Metabolism
DX: M81.0 Age-related osteoporosis without current pathological fracture (principal); E10.65 Type 1 diabetes mellitus with hyperglycemia

== ENCOUNTER 2022-07-09 15:22 | Outpatient (CLI) | payer MEDICARE ==
[~2022-07-09] VITALS: Ht 172.7 cm; Wt 95.5 kg
[2022-07-09 15:25] VITALS: BP 122/83
[2022-07-09] MEDS ORDERED: ZOLEDRONIC ACID 5 MG in IV 1 EA IV ONE (15:30)
[2022-07-09 16:20] VITALS: BP 144/70
== END 2022-07-09 16:20 | disposition home or self-care (01) ==
LOC: M INFU 15:22
PROVIDERS: ATTEND Internal Medicine Endocrinology, Diabetes & Metabolism
DX: M81.0 Age-related osteoporosis without current pathological fracture (principal); Z88.2 Allergy status to sulfonamides; Z88.0 Allergy status to penicillin; Z88.1 Allergy status to other antibiotic agents
CPT/HCPCS: 96365; J3489

== ENCOUNTER 2023-04-02 08:09 | Day surgery (SDC) | payer MEDICARE ==
[~2023-04-02] VITALS: Ht 172.7 cm; Wt 84.3 kg
[~2023-04-02 08:09] MED LIST changes: +BUDE10.7 INH; +LIDOCAINE 2% 100MG/5ML SDV (FOR ANES.) As Ordered ONE; +NS 1,000 ML IV ONE; +SEMA1PEN2 SQ; +propofoL 200 MG/20 ML VIAL As Ordered ONE
[2023-04-02] MEDS ORDERED: INSULIN LISPRO (NovoLOG) PER UNIT SC ONE (09:10)
[2023-04-02 09:42] VITALS: TEMP 98.7
[2023-04-02 10:00] VITALS: BP 145/76; O2SAT 98
== END 2023-04-02 10:23 | disposition home or self-care (01) ==
LOC: M OPP 08:09
PROVIDERS: ATTEND Internal Medicine Gastroenterology
DX: K22.89 Other specified disease of esophagus (principal); K31.89 Other diseases of stomach and duodenum; K44.9 Diaphragmatic hernia without obstruction or gangrene; R12 Heartburn; F17.200 Nicotine dependence, unspecified, uncomplicated; E10.9 Type 1 diabetes mellitus without complications; G47.30 Sleep apnea, unspecified; Z79.02 Long term (current) use of antithrombotics/antiplatelets; Z79.4 Long term (current) use of insulin; Z79.51 Long term (current) use of inhaled steroids; Z79.82 Long term (current) use of aspirin; Z79.890 Hormone replacement therapy; Z79.891 Long term (current) use of opiate analgesic; Z79.899 Other long term (current) drug therapy; Z88.1 Allergy status to other antibiotic agents; Z88.2 Allergy status to sulfonamides

== ENCOUNTER → 2023-06-09 | Outpatient (CLI) | payer MEDICARE ==
[~2023-06-09] MED LIST changes: -LIDOCAINE 2% 100MG/5ML SDV (FOR ANES.) As Ordered ONE; -NS 1,000 ML IV ONE; -propofoL 200 MG/20 ML VIAL As Ordered ONE
== END ==
LOC: M WHC 10:46
PROVIDERS: ATTEND Internal Medicine Endocrinology, Diabetes & Metabolism
DX: M85.88 Other specified disorders of bone density and structure, other site (principal); M81.0 Age-related osteoporosis without current pathological fracture

== ENCOUNTER → 2023-06-30 | Outpatient (CLI) | payer MEDICARE ==
[2023-06-30 11:46] LABS: HEMOGLOBIN 13.5 g/dl (12.0-15.5); MEAN CORPUSCULAR HEMOGLOBIN 31.8 pg (27.0-33.0); MEAN CORPUSCULAR HGB CONC 33.8 g/dl (32.0-36.5); MEAN CORPUSCULAR VOLUME 94.3 fl (80.0-96.0); PLATELET COUNT, AUTOMATED 288 10^3/uL (150-450); RED BLOOD COUNT 4.24 10^6/uL (4.00-5.40); WHITE BLOOD COUNT 8.3 10^3/uL (4.0-10.0)
[2023-06-30 12:09] LABS: CREATININE, URINE 43.5 MG/DL; MALB URINE SIEMENS < 3.0 MG/L; MAU/CREAT RATIO 6.8 MCG/MG (0.0-30.0)
[2023-06-30 12:12] LABS: ALBUMIN 3.3 G/DL (3.2-5.2); ALKALINE PHOSPHATASE 79 U/L (46-116); ALT/SGPT 25 U/L (7.0-40); AST/SGOT 20 U/L (<34); BILIRUBIN,TOTAL 0.4 MG/DL (0.3-1.2); BLOOD UREA NITROGEN 9 MG/DL (9-23); CALCIUM LEVEL 9.8 MG/DL (8.3-10.6); CARBON DIOXIDE LEVEL 30 MMOL/L (20-31); CHLORIDE LEVEL 104 MMOL/L (98-107); CHOLESTEROL LEVEL 151 MG/DL (<200); CHOLESTEROL RISK RATIO 2.47 (<5); CREATININE FOR GFR 0.71 MG/DL (0.55-1.30); GLOMERULAR FILTRATION RATE > 60.0 (>39); GLUCOSE, FASTING 125 MG/DL (74-106); HDL CHOLESTEROL 60.9 MG/DL (>40); LDL CHOLESTEROL 73.1 MG/DL (<100); NON-HDL-C 90.1 MG/DL; POTASSIUM SERUM 4.1 MMOL/L (3.5-5.1); SODIUM LEVEL 137 MMOL/L (136-145); TOTAL PROTEIN 6.3 G/DL (5.7-8.2); TRIGLYCERIDES LEVEL 85 MG/DL (<150)
[2023-06-30 12:13] LABS: TOTAL 25(OH) VITAMIN D 41.9 NG/ML (20.0-100.0)
[2023-06-30 12:14] LABS: THYROID STIMULATING HORMONE 0.486 uIU/ML (0.55-4.78)
== END ==
LOC: M LAB 10:41
PROVIDERS: ATTEND Internal Medicine Endocrinology, Diabetes & Metabolism
DX: E10.65 Type 1 diabetes mellitus with hyperglycemia (principal)

== ENCOUNTER → 2023-08-28 | Outpatient (CLI) | payer MEDICARE ==
[~2023-08-28] MED LIST changes: +BUPR-597 PO; -BUPR300T92 PO
== END ==
LOC: M WHC 15:02
PROVIDERS: ATTEND Physician Assistant
DX: Z12.31 Encounter for screening mammogram for malignant neoplasm of breast (principal)

== ENCOUNTER → 2024-01-18 | Outpatient (CLI) | payer MEDICARE ==
[~2024-01-18] MED LIST changes: +GABA-1172 PO; -GABA-282 PO
[2024-01-18 12:18] LABS: HEMATOCRIT 40.4 % (36.0-47.0); HEMOGLOBIN 13.7 g/dl (12.0-15.5); MEAN CORPUSCULAR HEMOGLOBIN 32.7 pg (27.0-33.0); MEAN CORPUSCULAR HGB CONC 33.9 g/dl (32.0-36.5); MEAN CORPUSCULAR VOLUME 96.4 fl (80.0-96.0); PLATELET COUNT, AUTOMATED 315 10^3/uL (150-450); RED BLOOD COUNT 4.19 10^6/uL (4.00-5.40)
[2024-01-18 12:21] LABS: ALBUMIN 3.5 G/DL (3.2-5.2); ALKALINE PHOSPHATASE 79 U/L (35-104); ALT/SGPT 28 U/L (7.0-40); AST/SGOT 17 U/L (<34); BILIRUBIN,TOTAL 0.4 MG/DL (0.3-1.2); BLOOD UREA NITROGEN 12 MG/DL (9-23); CALCIUM LEVEL 9.9 MG/DL (8.3-10.6); CARBON DIOXIDE LEVEL 30 MMOL/L (20-31); CHLORIDE LEVEL 104 MMOL/L (98-107); CHOLESTEROL LEVEL 162 MG/DL (<200); CHOLESTEROL RISK RATIO 2.46 (<5); CREATININE FOR GFR 0.83 MG/DL (0.55-1.30); GLOMERULAR FILTRATION RATE > 60.0 (>39); GLUCOSE, FASTING 312 MG/DL (74-106); HDL CHOLESTEROL 65.7 MG/DL (>40); LDL CHOLESTEROL 75.5 MG/DL (<100); NON-HDL-C 96.3 MG/DL; POTASSIUM SERUM 4.7 MMOL/L (3.5-5.1); SODIUM LEVEL 139 MMOL/L (136-145); TOTAL PROTEIN 6.6 G/DL (5.7-8.2); TRIGLYCERIDES LEVEL 104 MG/DL (<150)
== END ==
LOC: M WUC 09:33
PROVIDERS: ATTEND Physician Assistant
DX: I10 Essential (primary) hypertension (principal); E78.5 Hyperlipidemia, unspecified

== ENCOUNTER → 2024-04-08 | Outpatient (CLI) | payer MEDICARE ==
[~2024-04-08] MED LIST changes: -ADV250INH INH; -ADV500INH INH; +ADVA1AER10 INH; +ADVA1AER9 INH
[2024-04-08 18:56] LABS: HEMOGLOBIN A1c 9.2 % (4.0-6.0)
[2024-04-08 19:04] LABS: THYROID STIMULATING HORMONE 1.717 uIU/ML (0.55-4.78)
[2024-04-08 19:05] LABS: FREE T4 1.58 NG/DL (0.89-1.76)
[2024-04-08 19:06] LABS: TOTAL 25(OH) VITAMIN D 52.9 NG/ML (20.0-100.0)
[2024-04-08 19:26] LABS: BLOOD UREA NITROGEN 16 MG/DL (9-23); CALCIUM LEVEL 9.1 MG/DL (8.3-10.6); CARBON DIOXIDE LEVEL 24 MMOL/L (20-31); CHLORIDE LEVEL 105 MMOL/L (98-107); GLOMERULAR FILTRATION RATE > 60.0 (>39); GLUCOSE, FASTING 514 MG/DL (74-106); SODIUM LEVEL 136 MMOL/L (136-145)
== END ==
LOC: M WUC 11:28
PROVIDERS: ATTEND Nurse Practitioner Family
DX: E10.65 Type 1 diabetes mellitus with hyperglycemia (principal); E03.9 Hypothyroidism, unspecified; M81.0 Age-related osteoporosis without current pathological fracture; E55.9 Vitamin D deficiency, unspecified

== ENCOUNTER → 2024-04-08 | Outpatient (CLI) | payer MEDICARE | LOC: M RAD 12:18 | PROVIDERS: ATTEND Internal Medicine Pulmonary Disease | DX: F17.218 Nicotine dependence, cigarettes, with other nicotine-induced disorders (principal); R91.1 Solitary pulmonary nodule; J43.9 Emphysema, unspecified; J98.4 Other disorders of lung ==

== ENCOUNTER → 2024-07-26 | Outpatient (CLI) | payer MEDICARE ==
[~2024-07-26] MED LIST changes: -BUPR-597 PO; +BUPR-766 PO; +MORP-137 PO; -MSIR30TA PO
[2024-07-26 13:36] LABS: THYROID STIMULATING HORMONE 0.431 uIU/ML (0.55-4.78)
[2024-07-26 13:37] LABS: CALCIUM LEVEL 9.5 MG/DL (8.3-10.6); CREATININE FOR GFR 0.73 MG/DL (0.55-1.30); GLOMERULAR FILTRATION RATE 87.3 (>39); POTASSIUM SERUM 4.7 MMOL/L (3.5-5.1); TOTAL 25(OH) VITAMIN D 46.2 NG/ML (20.0-100.0)
[2024-07-26 13:40] LABS: FREE T4 1.86 NG/DL (0.89-1.76)
== END ==
LOC: M WUC 09:52
PROVIDERS: ATTEND Nurse Practitioner Family
DX: E03.9 Hypothyroidism, unspecified (principal); E55.9 Vitamin D deficiency, unspecified; M81.0 Age-related osteoporosis without current pathological fracture

== ENCOUNTER → 2024-10-19 | Outpatient (CLI) | payer MEDICARE ==
[~2024-10-19] MED LIST changes: +LIDO1ADH93 TD; -LIDO5DIS41 TD
[2024-10-19 12:50] LABS: CALCIUM LEVEL 9.0 MG/DL (8.3-10.6); CARBON DIOXIDE LEVEL 26.0 MMOL/L (20-31); CHLORIDE LEVEL 104.0 MMOL/L (98-107); CREATININE FOR GFR 0.76 MG/DL (0.55-1.30); GLOMERULAR FILTRATION RATE 83.2 (>39); POTASSIUM SERUM 4.7 MMOL/L (3.5-5.1); SODIUM LEVEL 137.0 MMOL/L (136-145)
== END ==
LOC: M WUC 08:30
PROVIDERS: ATTEND Nurse Practitioner Family
DX: M81.0 Age-related osteoporosis without current pathological fracture (principal)

== ENCOUNTER → 2024-11-17 | Outpatient (REF) | payer MEDICARE | LOC: M LAB REF 13:05 | PROVIDERS: ATTEND Physician Assistant | DX: J44.1 Chronic obstructive pulmonary disease with (acute) exacerbation (principal) ==

== ENCOUNTER → 2024-12-09 | Outpatient (REF) | payer MEDICARE | LOC: M LAB REF 13:04 | PROVIDERS: ATTEND Physician Assistant | DX: J44.1 Chronic obstructive pulmonary disease with (acute) exacerbation (principal) ==

== ENCOUNTER 2025-01-14 21:00 | Inpatient (IN) | payer MEDICARE ==
[~2025-01-14] VITALS: Ht 160 cm; Wt 81.8 kg
[~2025-01-14 21:00] MED LIST changes: +METOPROLOL TART 25 MG TABLET PO SCH
[2025-01-14 22:28] LABS: BASO # 0.1 10^3/uL (0.0-0.2); BASO % 0.7 % (0.0-1.0); EOS # 0.4 10^3/uL (0.0-0.5); EOS % 2.4 % (0.0-3.0); LYMPH # 2.6 10^3/uL (1.5-5.0); LYMPH % 15.6 % (24.0-44.0); MONO # 1.6 10^3/uL (0.0-0.8); MONO % 9.6 % (2.0-8.0); NEUTROPHILS # 11.7 10^3/uL (1.5-8.5); NEUTROPHILS % 71.2 % (36.0-66.0); PLATELET COUNT, AUTOMATED 323 10^3/uL (150-450)
[2025-01-14 22:34] LABS: ALT/SGPT 30 U/L (7.0-40); AST/SGOT 29 U/L (<34); C REACTIVE PROTEIN QUANTITATIV < 0.50 MG/DL (<1.0); CALCIUM LEVEL 9.4 MG/DL (8.3-10.6); CARBON DIOXIDE LEVEL 25 MMOL/L (20-31); CHLORIDE LEVEL 109 MMOL/L (98-107); CREATININE FOR GFR 0.89 MG/DL (0.55-1.30); GLOMERULAR FILTRATION RATE 68.4 (>39); POTASSIUM SERUM 4.0 MMOL/L (3.5-5.1); SODIUM LEVEL 143 MMOL/L (136-145)
[2025-01-14 23:12] LABS: KETONE, URINE AUTO RFX NEGATIVE (NEGATIVE); LEUKOCYTE ESTERASE UR AUTO RFX NEGATIVE (NEGATIVE); NITRITE, URINE AUTO RFX NEGATIVE (NEGATIVE); RBC, URINE AUTO RFX 1 /HPF (0-3); SQUAM EPITHELIAL CELL UR AURFX 0 /HPF (0-6); WBC, URINE AUTO RFX 2 /HPF (0-3)
[2025-01-14] MEDS: ACETAMINOPHEN 325 MG TAB PO ONE (23:28)
[2025-01-14] MEDS: D5W/0.9% SODIUM CHLORIDE 1,000 ML IV SCH (23:29)
[2025-01-14 23:39] LABS: INR 0.97
[2025-01-15] MEDS: IPRATROPIUM 0.5 MG/ALBUTEROL 2.5 MG INH SOL UD 3 ML NEB ONE (00:05)
[2025-01-15] MEDS: cefTRIAXone SOD 1 GM in DEXTROSE 5% (D5W) ADV/MINI-BAG 50 ML IV ONE (00:25)
[2025-01-15] MEDS ORDERED: DEXTROSE 50% 50 ML SYRINGE IV PRN (01:05)
[2025-01-15] MEDS ORDERED: GLUCOSE 4 GM CHEW PO PRN (01:05)
[2025-01-15] MEDS ORDERED: MAALOX 30 ML SUSP *UDC PO PRN (01:05)
[2025-01-15] MEDS ORDERED: GLUCAGON INJ 1 MG VIAL SC PRN (01:05)
[2025-01-15] MEDS ORDERED: LEVO150T7 PO (01:19)
[2025-01-15] MEDS ORDERED: ASPI81TA26 PO (01:19)
[2025-01-15] MEDS ORDERED: ACET-683 PO (01:19)
[2025-01-15] MEDS ORDERED: MULTTAB13 PO (01:19)
[2025-01-15] MEDS ORDERED: FAMO1TAB11 PO (01:24)
[2025-01-15] MEDS ORDERED: SEMA2PEN SQ (01:24)
[2025-01-15] MEDS ORDERED: HOME MED LIST COMPLETE! XX SCH (01:25)
[2025-01-15] MEDS: IPRATROPIUM 0.5 MG/ALBUTEROL 2.5 MG INH SOL UD 3 ML NEB SCH (01:30)
[2025-01-15] MEDS: DEXTROSE 50% 50 ML SYRINGE IV STA (01:44)
[2025-01-15] MEDS: NS (Normal Saline) 0.9% 1,000 ML IV SCH (01:45)
[2025-01-15] MEDS: LEVOTHYROXINE 150 MCG TABLET (0.15 MG) PO SCH (08:15)
[2025-01-15] MEDS: DOCUSATE SODIUM 100 MG CAPSULE PO SCH (08:20)
[2025-01-15] MEDS: PANTOPRAZOLE 40MG TAB PO SCH ×2 (08:20→20:21)
[2025-01-15] MEDS: ENOXAPARIN 40 MG/0.4 ML SYRINGE (J1650 PER 10MG) SC SCH (08:20)
[2025-01-15] MEDS: METOPROLOL SUCC. 25 MG *XL* TAB PO SCH (08:21)
[2025-01-15] MEDS: INSULIN LISPRO (NovoLOG) PER UNIT SC SCH (08:21)
[2025-01-15] MEDS ORDERED: cefTRIAXone SOD 1 GM in DEXTROSE 5% (D5W) ADV/MINI-BAG 50 ML IV SCH (09:00)
[2025-01-15] MEDS: LORATADINE 10 MG TAB PO SCH (09:00)
[2025-01-15 09:57] LABS: BASO # 0.0 10^3/uL (0.0-0.2); BASO % 0.2 % (0.0-1.0); EOS # 0.0 10^3/uL (0.0-0.5); EOS % 0.0 % (0.0-3.0); LYMPH # 1.1 10^3/uL (1.5-5.0); LYMPH % 11.0 % (24.0-44.0); MONO # 0.4 10^3/uL (0.0-0.8); MONO % 3.9 % (2.0-8.0); NEUTROPHILS # 8.2 10^3/uL (1.5-8.5); NEUTROPHILS % 84.6 % (36.0-66.0); PLATELET COUNT, AUTOMATED 288 10^3/uL (150-450)
[2025-01-15 10:27] LABS: CALCIUM LEVEL 8.3 MG/DL (8.3-10.6); CARBON DIOXIDE LEVEL 21 MMOL/L (20-31); CHLORIDE LEVEL 105 MMOL/L (98-107); CREATININE FOR GFR 0.66 MG/DL (0.55-1.30); GLOMERULAR FILTRATION RATE > 90.0 (>39); POTASSIUM SERUM 4.4 MMOL/L (3.5-5.1); SODIUM LEVEL 135 MMOL/L (136-145)
[2025-01-15 12:05] VITALS: BP 113/52; TEMP 98.6; O2SAT 94
[2025-01-15 16:00] VITALS: BP 92/61; TEMP 97.9; O2SAT 95
[2025-01-15 16:30] VITALS: BP 128/62
[2025-01-15] MEDS ORDERED: ISOVUE-370 76% 100 ML VIAL As Ordered ONE (17:29)
[2025-01-15] MEDS: TIOTROPIUM BROM 2.5MCG/ACTUATION 4GM INH INH SCH (18:00)
[2025-01-15] MEDS: buPROPion **XL** 150 MG TABLET PO SCH (18:25)
[2025-01-15] MEDS: ATORVASTATIN 20 MG TAB PO SCH (18:25)
[2025-01-15] MEDS: ESCITALOPRAM OXALATE 10 MG TABLET PO SCH (18:25)
[2025-01-15] MEDS: LanTUS (INSULIN GLARGINE INJ) 1 UNITS/0.01 ML SC SCH (18:26)
[2025-01-15] MEDS: VITAMIN D 1,000 INTERNATIONAL UNITS TABLET PO SCH (18:26)
[2025-01-15] MEDS: ASPIRIN 81 MG ENTERIC TABLET PO SCH (18:26)
[2025-01-15] MEDS: SYMBICORT 160/4.5MCG INHALER 6GM INH SCH (19:10)
[2025-01-15 19:38] VITALS: BP 123/70; TEMP 98.1; O2SAT 96
[2025-01-15] MEDS: FAMOTIDINE 20 MG TAB PO SCH (20:21)
[2025-01-15] MEDS: cefTRIAXone SOD 1 GM in DEXTROSE 5% (D5W) ADV/MINI-BAG 50 ML IV SCH (23:34)
[2025-01-15 23:59] VITALS: BP 119/53; TEMP 97.7; O2SAT 96
[2025-01-16 04:24] VITALS: BP 115/55; TEMP 97.7; O2SAT 95
[2025-01-16 07:00] LABS: PLATELET COUNT, AUTOMATED 261 10^3/uL (150-450)
[2025-01-16] MEDS: FLUZONE HIGH DOSE (65+) 0.5 ML SYRINGE (25-26) IM.IMMUN ONE (07:30)
[2025-01-16 07:31] LABS: CALCIUM LEVEL 7.9 MG/DL (8.3-10.6); CARBON DIOXIDE LEVEL 24.0 MMOL/L (20-31); CHLORIDE LEVEL 112.0 MMOL/L (98-107); CREATININE FOR GFR 0.76 MG/DL (0.55-1.30); GLOMERULAR FILTRATION RATE 82.7 (>39); POTASSIUM SERUM 3.8 MMOL/L (3.5-5.1); SODIUM LEVEL 144.0 MMOL/L (136-145)
[2025-01-16] MEDS: LanTUS (INSULIN GLARGINE INJ) 1 UNITS/0.01 ML SC SCH (08:53)
[2025-01-16 09:50] LABS: FREE T4 1.35 NG/DL (0.89-1.76)
[2025-01-16 10:28] VITALS: BP 115/63; TEMP 97.1; O2SAT 95
[2025-01-16 10:30] VITALS: BP 115/63; TEMP 97.7; O2SAT 95
[2025-01-16 11:00] LABS: ESTIMATED AVERAGE GLUCOSE 223.0 MG/DL (60-110)
[2025-01-16 14:12] VITALS: BP 117/67; TEMP 97.7; O2SAT 96
[2025-01-16] MEDS: ACETAMINOPHEN 325 MG TAB PO PRN (17:04)
[2025-01-16 20:52] VITALS: BP 131/84; TEMP 98.2; O2SAT 94
[2025-01-16] MEDS: INSULIN LISPRO (NovoLOG) PER UNIT SC SCH (21:08)
[2025-01-16] MEDS: metFORMIN 500 MG TAB PO SCH (21:11)
[2025-01-17] VITALS (7 sets, daily range): BP systolic 126–139; BP diastolic 59–63; TEMP 97.5–98.1; O2SAT 94–98
[2025-01-17 07:13] LABS: PLATELET COUNT, AUTOMATED 265 10^3/uL (150-450)
[2025-01-17] MEDS: INSULIN LISPRO (NovoLOG) PER UNIT SC SCH ×2 (07:30→21:29)
[2025-01-17 07:43] LABS: CALCIUM LEVEL 8.1 MG/DL (8.3-10.6); CARBON DIOXIDE LEVEL 26.0 MMOL/L (20-31); CHLORIDE LEVEL 109.0 MMOL/L (98-107); CREATININE FOR GFR 0.71 MG/DL (0.55-1.30); GLOMERULAR FILTRATION RATE 89.7 (>39); POTASSIUM SERUM 4.0 MMOL/L (3.5-5.1); SODIUM LEVEL 142.0 MMOL/L (136-145)
[2025-01-17] MEDS: LanTUS (INSULIN GLARGINE INJ) 1 UNITS/0.01 ML SC SCH (08:43)
[2025-01-17] MEDS ORDERED: FLAS1KIT2 MC (11:34)
[2025-01-17] MEDS ORDERED: BLOO-259 MC (11:34)
[2025-01-18 05:03] VITALS: BP 127/64; TEMP 98.1; O2SAT 94
[2025-01-18 06:42] LABS: PLATELET COUNT, AUTOMATED 253 10^3/uL (150-450)
[2025-01-18 07:04] LABS: CALCIUM LEVEL 8.4 MG/DL (8.3-10.6); CARBON DIOXIDE LEVEL 25.0 MMOL/L (20-31); CHLORIDE LEVEL 108.0 MMOL/L (98-107); CREATININE FOR GFR 0.71 MG/DL (0.55-1.30); GLOMERULAR FILTRATION RATE 89.7 (>39); POTASSIUM SERUM 4.3 MMOL/L (3.5-5.1); SODIUM LEVEL 141.0 MMOL/L (136-145)
[2025-01-18 08:00] VITALS: BP 117/65; TEMP 97.3; O2SAT 96
[2025-01-18 08:06] VITALS: BP 123/61
[2025-01-18 10:00] VITALS: BP 140/67; TEMP 98.3; O2SAT 98
[2025-01-18] MEDS ORDERED: DEXC1MIS4 XX (10:32)
[2025-01-18 14:00] VITALS: BP 129/60; TEMP 98; O2SAT 94
[2025-01-18] MEDS ORDERED: TOUJ1.2I SC (14:01)
[2025-01-18] MEDS ORDERED: INSUHUMDS SC (14:01)
[2025-01-18] MEDS ORDERED: METF10004 PO (14:01)
== END 2025-01-18 16:45 | disposition home or self-care (01) | DRG 638 ==
LOC: EDBD 21:00 → M ED 21:00 → EEVIPCON 01-15 01:03 → M ED INP 01-15 01:03 → M MS5PR 01-15 13:35
PROVIDERS: ADMIT Internal Medicine; ATTEND Internal Medicine
DX: E11.649 Type 2 diabetes mellitus with hypoglycemia without coma (principal); N39.0 Urinary tract infection, site not specified; J44.9 Chronic obstructive pulmonary disease, unspecified; G47.33 Obstructive sleep apnea (adult) (pediatric); I10 Essential (primary) hypertension; E03.9 Hypothyroidism, unspecified; I25.10 Atherosclerotic heart disease of native coronary artery without angina pectoris; R32 Unspecified urinary incontinence; F41.9 Anxiety disorder, unspecified; F32.A Depression, unspecified; J45.909 Unspecified asthma, uncomplicated; K40.90 Unilateral inguinal hernia, without obstruction or gangrene, not specified as recurrent; R68.0 Hypothermia, not associated with low environmental temperature; F17.200 Nicotine dependence, unspecified, uncomplicated; Z86.73 Personal history of transient ischemic attack (TIA), and cerebral infarction without residual deficits; Z79.82 Long term (current) use of aspirin; Z79.4 Long term (current) use of insulin; Z79.890 Hormone replacement therapy; Z79.899 Other long term (current) drug therapy; Z88.0 Allergy status to penicillin; Z88.2 Allergy status to sulfonamides; Z88.8 Allergy status to other drugs, medicaments and biological substances

== ENCOUNTER 2025-01-19 21:59 | Emergency (ER) | payer MEDICARE ==
[~2025-01-19] VITALS: Ht 175.3 cm; Wt 81.8 kg
[~2025-01-19 21:59] MED LIST changes: +ACET-683 PO; +ASPI81TA26 PO; +BLOO-259 MC; +DEXC1MIS4 XX; +FAMO1TAB11 PO; +FLAS1KIT2 MC; +LEVO150T7 PO; +METF10004 PO; -METOPROLOL TART 25 MG TABLET PO SCH; +MULTTAB13 PO; +SEMA2PEN SQ
[2025-01-19 22:03] VITALS: TEMP 99
[2025-01-19 23:42] LABS: KETONE, URINE AUTO RFX 1+ mg/dL (NEGATIVE); LEUKOCYTE ESTERASE UR AUTO RFX NEGATIVE (NEGATIVE); MUCUS, URINE RFX SMALL (NEGATIVE); NITRITE, URINE AUTO RFX NEGATIVE (NEGATIVE); RBC, URINE AUTO RFX 1 /HPF (0-3); SQUAM EPITHELIAL CELL UR AURFX 1 /HPF (0-6); WBC, URINE AUTO RFX 2 /HPF (0-3)
[2025-01-19 23:49] LABS: VENOUS BASE EXCESS -5.9 (-2.0-2.0); VENOUS HCO3 19.4 MMOL/L (23.0-27.0); VENOUS O2 SATURATION 58.0 % (60.0-80.0); VENOUS PARTIAL PRESSURE CO2 37.2 mmHg (38.0-50.0); VENOUS PARTIAL PRESSURE O2 29.9 mmHg (30.0-50.0); VENOUS PH 7.334 UNITS (7.330-7.430); VENOUS STANDARD HCO3 18.9 MMOL/L; VENOUS TOTAL CO2 20.5 MMOL/L (24.0-28.0)
[2025-01-20] MEDS: ONDANSETRON 4MG/2ML VIAL IV ONE (00:05)
[2025-01-20] MEDS: NS (Normal Saline) 0.9% 1,000 ML IV ONE (00:05)
[2025-01-20 00:15] LABS: BASO # 0.1 10^3/uL (0.0-0.2); BASO % 0.6 % (0.0-1.0); EOS # 0.1 10^3/uL (0.0-0.5); EOS % 0.5 % (0.0-3.0); LYMPH # 1.8 10^3/uL (1.5-5.0); LYMPH % 14.3 % (24.0-44.0); MONO # 1.1 10^3/uL (0.0-0.8); MONO % 8.3 % (2.0-8.0); NEUTROPHILS # 9.7 10^3/uL (1.5-8.5); NEUTROPHILS % 75.3 % (36.0-66.0); PLATELET COUNT, AUTOMATED 309 10^3/uL (150-450)
[2025-01-20 00:16] LABS: ESTIMATED AVERAGE GLUCOSE 203.0 MG/DL (60-110)
[2025-01-20 00:17] LABS: ALT/SGPT 41.0 U/L (7.0-40); AST/SGOT 27.0 U/L (<34)
[2025-01-20 00:18] LABS: ACETONE/KETONE 0.45 MMOL/L (0.02-0.27)
[2025-01-20 00:22] LABS: OSMOLALITY SERUM 297.0 MOSM/KG (280-301)
[2025-01-20 01:30] VITALS: BP 103/53
[2025-01-20 01:41] LABS: CALCIUM LEVEL 9.0 MG/DL (8.3-10.6); CARBON DIOXIDE LEVEL 22.0 MMOL/L (20-31); CHLORIDE LEVEL 99.0 MMOL/L (98-107); CREATININE FOR GFR 1.08 MG/DL (0.55-1.30); GLOMERULAR FILTRATION RATE 54.2 (>39); POTASSIUM SERUM 4.0 MMOL/L (3.5-5.1); SODIUM LEVEL 136.0 MMOL/L (136-145)
[2025-01-20 01:45] VITALS: O2SAT 93
== END 2025-01-20 01:59 | disposition home or self-care (01) ==
LOC: M ED 21:59
DX: E11.65 Type 2 diabetes mellitus with hyperglycemia (principal); F17.210 Nicotine dependence, cigarettes, uncomplicated; Z88.1 Allergy status to other antibiotic agents; Z88.2 Allergy status to sulfonamides; Z79.1 Long term (current) use of non-steroidal anti-inflammatories (NSAID); Z79.51 Long term (current) use of inhaled steroids; Z79.4 Long term (current) use of insulin; Z79.84 Long term (current) use of oral hypoglycemic drugs; Z79.899 Other long term (current) drug therapy; Z79.810 Long term (current) use of selective estrogen receptor modulators (SERMs)
CPT/HCPCS: 80048; 80076; 81001; 82010; 82803; 83036; 83690; 83930; 85025; 93005; 93041; 94760; 96361; 96374; 99284; J2405